=== PATIENT | male | born 1965 | race Caucasian/White ===

== ENCOUNTER 2021-07-31 06:30 | Inpatient (IN) ==
--- NOTE | 2021-07-31 06:45 | DR.SOBA ---
HPI <JENNIFER NOLBERTO - Last Filed: 08/01/21 03:54> Time Seen Time Seen by Provider: 07/31/21 06:42 HPI Comment HPI Comment: PATIENT IS 55YR OLD MALE IN ER WITH INCREASING SOB AND LOW OXYGEN SATURATION. TESTED POSITIVE FOR COVID 19 VIRUS 2 WEEKS AGO. DENIES FEVER. CHEST WALL DISCOMFORT FROM COUGHING. Complaints Chief Complaint Doctors Comments: INCREASING SOB, COUGH, CONGESTION AND LOW O2 SATURATION. COVID VIRUS TESTED POSITIVE 2 WEEKS AGO. COVID-19 Coronavirus risk:travel/contact w/high risk person: Yes Has patient experienced Coronavirus symptoms: Yes Coronavirus symptoms experienced: Coughing Source History Provided: Patient and Family Member Mode of Arrival Mode of Arrival: Ambulatory PMH <SILVADUSTIN NOLBERTO - Last Filed: 08/01/21 03:54> PMH Past Medical History: Diabetes, Dyslipidemia and Hypertension Past Surgical History: No Surgical History: Ortho Surgery Family History Family Medical History: Diabetes Mellitus, Cancer, [place], Coronary Artery Disease and Hypertension Social History Do you use any recreational Drugs:: No ROS <SILVADUSTIN NOLBERTO - Last Filed: 08/01/21 03:54> Review of Systems Constitutional: See HPI; negative Fever, Weakness and Fatigue Eyes: No Symptoms Reported and See HPI ENTM: See HPI; negative Nose Discharge and Nose Congestion Respiratoy: See HPI, Productive Cough and Short of Breath; negative Wheezing Cardiovascular: See HPI and Chest Pain (CHEST WALL PAIN.) Gastrointestinal/Abdominal: No Symptoms Reported and See HPI; negative Abdominal Pain, Diarrhea, Nausea and Vomiting Genitourinary: No Symptoms Reported and See HPI; negative Dysuria, Frequency and Hematuria Neurological: See HPI, Headache and Weakness; negative Dizziness Musculoskeletal: No Symptoms Reported and See HPI; negative Back Pain and Muscle Pain Integumentary: No Symptoms Reported and See HPI; negative Rash and Juandice Hematologic/Lymphatic: No Symptoms Reported and See HPI; negative Easy Bruising Endocrine: No Symptoms Reported and See HPI; negative Increased Thirst and Increased Urine Psychiatric: No Symptoms Reported and See HPI All Other Systems: Reviewed and Negative PE <JENNIFER NOLBERTO - Last Filed: 08/01/21 03:54> Vital Signs Vitals: Temperature 98.7 F Pulse Rate [Left Brachial] 89 Pulse Rate 92 Respiratory Rate 20 Blood Pressure [Left Arm] 150/71 Blood Pressure 138/72 O2 Sat by Pulse Oximetry 92 General Limitations: No Limitations General Appearance: Alert and In Distress Head Head Exam: Normal Inspection, Atraumatic and Normocephalic Eyes Eye exam: Normal Appearance, PERRL and EOMI; negative Scleral Icterus and Conjunctival Injection ENT ENT Exam: Normal Exam, Normal Oropharynx, Normal External Ear Exam and Mucous Membranes Dry Neck Neck Exam: Normal Inspection, Trachea Midline and Tenderness Chest Chest Inspection: Normal Inspection and Symmetric Chest Wall Rise; negative Tenderness Respiratory Respiratory Exam: Accessory Muscle Use and Respiratory Distress; negative Chest Wall Tenderness Respiratory Exam: Bilateral: Rhonchi and Lower: Rhonchi Cardiovascular Cardiovascular Exam: Regular Rate and Normal Rhythm; negative Normal Heart Sounds, Systolic Murmur and Diastolic Murmur Abdominal Exam Abdominal Exam: Normal Inspection, Normal Bowel Sounds and Soft; negative Tenderness Extremities Extremities Exam: Normal Inspection and Normal Capillary Refill; negative Tenderness Back Back Exam: Normal Inspection; negative (R) CVA Tenderness, (L) CVA Tenderness and Paraspinal Tenderness Neurologic Neurological Exam: Alert, Oriented X3 and CN II-XII Intact; negative Motor Sensory Deficit Psychiatric Psychiatric Exam: Normal Affect and Normal Mood Skin Skin Exam: Warm, Dry, Intact and Normal Color <Noman Ceballos - Last Filed: 07/31/21 15:08> Vital Signs Vitals: Temperature 98.7 F Pulse Rate [Left Brachial] 89 Pulse Rate 92 Respiratory Rate 20 Blood Pressure [Left Arm] 150/71 Blood Pressure 138/72 O2 Sat by Pulse Oximetry 92 MDM <JENNIFER MCKEON - Last Filed: 08/01/21 03:54> Additional Information Obtained Additional Information Obtained From: Family Differential Diagnosis Differential Diagnosis: Bronchitis, Pneumonia, Pulmonary embolism, Respiratory Failure, Respiratory Insufficiency, Sinusitis and URI Differential Diagnosis Comment:: MVA. COURSE <JENNIFER MCKEON - Last Filed: 08/01/21 03:54> Treatment Treatment: SEE ORDERS. O2 3L/M NC IN ER. O2 SAT IMPROVED. Education/Counseling Education/Counseling: Patient Educated On: Diagnosis <Noman Ceballos - Last Filed: 07/31/21 15:08> Treatment Treatment: 0926 - pt signed over to me, Dr Ceballos, for complition of his ER visit. CTA pending, but pt with changes c/w Covid pneumonia and hypoxia. Discussed with his attending, Dr Diaz, will admit. CTA was negative. ROR <JENNIFER MCKEON - Last Filed: 08/01/21 03:54> Labs Reviewed Laboratory Results Reviewed?: Yes Result Diagrams: 07/31/21 15:53 07/31/21 15:53 Laboratory: WBC 7.3 X10^3/uL (3.6-10.0) 07/31/21 06:55 RBC 4.88 X10^6/uL (4.7-6.0) 07/31/21 06:55 Hgb 14.7 g/dL (13.5-18.0) 07/31/21 06:55 Hct 43.4 % (42.0-54.0) 07/31/21 06:55 MCV 89.0 fL (80.0-100.0) 07/31/21 06:55 MCH 30.2 pg (27.0-34.0) 07/31/21 06:55 MCHC 33.9 g/dL (33.0-35.0) 07/31/21 06:55 RDW 13.4 % (11.6-16.5) 07/31/21 06:55 Plt Count 261 X10^3/uL (150.0-450.0) 07/31/21 06:55 MPV 7.6 fL (7.4-11.0) 07/31/21 06:55 Neut % (Auto) 82.6 % (42.0-75.0) H 07/31/21 06:55 Lymph % (Auto) 8.8 % (21.0-51.0) L 07/31/21 06:55 [place] % (Auto) 7.6 % (0.0-13.0) 07/31/21 06:55 Eos % (Auto) 0.5 % (0.9-2.9) L 07/31/21 06:55 Baso % (Auto) 0.5 % (0.2-1.0) 07/31/21 06:55 Neut # (Auto) 6.0 x10^3/uL (2.2-4.8) H 07/31/21 06:55 Lymph # (Auto) 0.6 X10^3/uL (1.3-2.9) L 07/31/21 06:55 [place] # (Auto) 0.6 x10^3/uL (0.3-0.8) 07/31/21 06:55 Eos # (Auto) 0.0 x10^3/uL (0.0-0.2) 07/31/21 06:55 Baso # (Auto) 0.0 X10^3/uL (0.0-0.1) 07/31/21 06:55 Absolute Nucleated RBC 0.1 /100WBC 07/31/21 06:55 D-Dimer 1.27 ug/ml (0.0-0.57) H* 07/31/21 06:55 Sample Site Lr 07/31/21 06:40 ABG pH 7.460 (7.35-7.45) H 07/31/21 06:40 ABG pCO2 39.0 mmHg (35.0-45.0) 07/31/21 06:40 ABG pO2 51.0 mmHg (80.0-100.0) L 07/31/21 06:40 ABG HCO3 27.7 mmol/L (22-26) H 07/31/21 06:40 ABG O2 Saturation 88.0 % (90-100) L 07/31/21 06:40 ABG Base Excess 3.7 mmol/L (-2.0-2.0) H 07/31/21 06:40 Nolberto Test Pos 07/31/21 06:40 A-a Gradient 50.0 mmHg 07/31/21 06:40 FiO2 21.0 07/31/21 06:40 Blood Gas Comments Pt amy well cdn 07/31/21 06:40 Sodium 133 mmol/L (136-145) L 07/31/21 06:55 Corrected Sodium 139 mmol/L (136-145) 07/31/21 06:55 Potassium 5.5 mmol/L (3.5-5.1) H 07/31/21 06:55 Chloride 97 mmol/L (98-107) L 07/31/21 06:55 Carbon Dioxide 26.1 mmol/L (21-32) 07/31/21 06:55 BUN 18 mg/dL (7-18) 07/31/21 06:55 Creatinine 1.19 mg/dL (0.70-1.30) 07/31/21 06:55 Est GFR (MDRD) Af Amer > 60 (>60) 07/31/21 06:55 Est GFR (MDRD) Non-Af > 60 (>60) 07/31/21 06:55 Glucose 331 mg/dL (65-99) H 07/31/21 06:55 POC Glucose (mg/dL) 373 mg/dL (65-99) H 07/31/21 12:06 Calcium 8.9 mg/dL (8.5-10.1) 07/31/21 06:55 Corrected Calcium 10.3 mg/dL (8.5-10.1) H 07/31/21 06:55 Total Bilirubin 0.70 mg/dL (0.2-1.0) 07/31/21 06:55 AST 65 Units/L (15-37) H 07/31/21 06:55 ALT 84 Units/L (12-78) H 07/31/21 06:55 Alkaline Phosphatase 187 Units/L (46-116) H 07/31/21 06:55 Total Protein 7.1 g/dL (6.4-8.2) 07/31/21 06:55 Albumin 2.3 g/dL (3.4-5.0) L 07/31/21 06:55 Globulin 4.8 g/dL (2.5-4.5) H 07/31/21 06:55 Albumin/Globulin Ratio 0.5 Ratio (1.1-2.1) L 07/31/21 06:55 SARS-CoV-2 (PCR) Positive (NEGATIVE) A 07/31/21 06:53 Influenza Type A (PCR) Negative (NEGATIVE) 07/31/21 06:53 Influenza Type B (PCR) Negative (NEGATIVE) 07/31/21 06:53 RSV (PCR) Negative (NEGATIVE) 07/31/21 06:53 XRAY XRAY Interpreted by: Radiologist (REPORT NOTED AND DISCUSSED WITH PATIENT.) and Self <Noman Ceballos - Last Filed: 07/31/21 15:08> Labs Reviewed Laboratory: WBC 7.3 X10^3/uL (3.6-10.0) 07/31/21 06:55 RBC 4.88 X10^6/uL (4.7-6.0) 07/31/21 06:55 Hgb 14.7 g/dL (13.5-18.0) 07/31/21 06:55 Hct 43.4 % (42.0-54.0) 07/31/21 06:55 MCV 89.0 fL (80.0-100.0) 07/31/21 06:55 MCH 30.2 pg (27.0-34.0) 07/31/21 06:55 MCHC 33.9 g/dL (33.0-35.0) 07/31/21 06:55 RDW 13.4 % (11.6-16.5) 07/31/21 06:55 Plt Count 261 X10^3/uL (150.0-450.0) 07/31/21 06:55 MPV 7.6 fL (7.4-11.0) 07/31/21 06:55 Neut % (Auto) 82.6 % (42.0-75.0) H 07/31/21 06:55 Lymph % (Auto) 8.8 % (21.0-51.0) L 07/31/21 06:55 [place] % (Auto) 7.6 % (0.0-13.0) 07/31/21 06:55 Eos % (Auto) 0.5 % (0.9-2.9) L 07/31/21 06:55 Baso % (Auto) 0.5 % (0.2-1.0) 07/31/21 06:55 Neut # (Auto) 6.0 x10^3/uL (2.2-4.8) H 07/31/21 06:55 Lymph # (Auto) 0.6 X10^3/uL (1.3-2.9) L 07/31/21 06:55 [place] # (Auto) 0.6 x10^3/uL (0.3-0.8) 07/31/21 06:55 Eos # (Auto) 0.0 x10^3/uL (0.0-0.2) 07/31/21 06:55 Baso # (Auto) 0.0 X10^3/uL (0.0-0.1) 07/31/21 06:55 Absolute Nucleated RBC 0.1 /100WBC 07/31/21 06:55 D-Dimer 1.27 ug/ml (0.0-0.57) H* 07/31/21 06:55 Sample Site Lr 07/31/21 06:40 ABG pH 7.460 (7.35-7.45) H 07/31/21 06:40 ABG pCO2 39.0 mmHg (35.0-45.0) 07/31/21 06:40 ABG pO2 51.0 mmHg (80.0-100.0) L 07/31/21 06:40 ABG HCO3 27.7 mmol/L (22-26) H 07/31/21 06:40 ABG O2 Saturation 88.0 % (90-100) L 07/31/21 06:40 ABG Base Excess 3.7 mmol/L (-2.0-2.0) H 07/31/21 06:40 Nolberto Test Pos 07/31/21 06:40 A-a Gradient 50.0 mmHg 07/31/21 06:40 FiO2 21.0 07/31/21 06:40 Blood Gas Comments Pt amy well cdn 07/31/21 06:40 Sodium 133 mmol/L (136-145) L 07/31/21 06:55 Corrected Sodium 139 mmol/L (136-145) 07/31/21 06:55 Potassium 5.5 mmol/L (3.5-5.1) H 07/31/21 06:55 Chloride 97 mmol/L (98-107) L 07/31/21 06:55 Carbon Dioxide 26.1 mmol/L (21-32) 07/31/21 06:55 BUN 18 mg/dL (7-18) 07/31/21 06:55 Creatinine 1.19 mg/dL (0.70-1.30) 07/31/21 06:55 Est GFR (MDRD) Af Amer > 60 (>60) 07/31/21 06:55 Est GFR (MDRD) Non-Af > 60 (>60) 07/31/21 06:55 Glucose 331 mg/dL (65-99) H 07/31/21 06:55 POC Glucose (mg/dL) 373 mg/dL (65-99) H 07/31/21 12:06 Calcium 8.9 mg/dL (8.5-10.1) 07/31/21 06:55 Corrected Calcium 10.3 mg/dL (8.5-10.1) H 07/31/21 06:55 Total Bilirubin 0.70 mg/dL (0.2-1.0) 07/31/21 06:55 AST 65 Units/L (15-37) H 07/31/21 06:55 ALT 84 Units/L (12-78) H 07/31/21 06:55 Alkaline Phosphatase 187 Units/L (46-116) H 07/31/21 06:55 Total Protein 7.1 g/dL (6.4-8.2) 07/31/21 06:55 Albumin 2.3 g/dL (3.4-5.0) L 07/31/21 06:55 Globulin 4.8 g/dL (2.5-4.5) H 07/31/21 06:55 Albumin/Globulin Ratio 0.5 Ratio (1.1-2.1) L 07/31/21 06:55 SARS-CoV-2 (PCR) Positive (NEGATIVE) A 07/31/21 06:53 Influenza Type A (PCR) Negative (NEGATIVE) 07/31/21 06:53 Influenza Type B (PCR) Negative (NEGATIVE) 07/31/21 06:53 RSV (PCR) Negative (NEGATIVE) 07/31/21 06:53 Opioid <JENNIFER MCKEON - Last Filed: 08/01/21 03:54> Opioid Risk Tool Age (Ilya box if 16-45): No History of Preadolescent Sexual Abuse: No Total: 0 Total Score Risk Category: Low Risk Copyright: [facility] predicting aberrant behaviors <Noman Ceballos - Last Filed: 07/31/21 15:08> Opioid Risk Tool Total: 0 Total Score Risk Category: Low Risk <JENNIFER MCKEON - Last Filed: 08/01/21 03:54> Diagnosis Discharge Problem: COVID-19 virus infection, Hypoxia Pneumonia Qualifiers: Pneumonia type: due to unspecified organism Laterality: bilateral Lung location: lower lobe of lung Qualified Code(s): J18.9 - Pneumonia, unspecified organism Instructions Forms: Precautions for COVID19 [facility] Patient Portal Social Distancing
[2021-07-31 06:50] LABS: ABG ALLEN TEST POS; ABG BASE EXCESS 3.7 mmol/L (-2.0-2.0); ABG HCO3 27.7 mmol/L (22-26)
--- NOTE | 2021-07-31 06:58 | RAD ---
HISTORYShortness of breathSTUDYChest AP [id number] t size is normal. Silvia are normal. Diffuse bilateral interstitial infiltrates with some bilateral upper lobe peripheral ground-glass infiltrates are identified not significantly different from the prior examination considering a difference in film technique. No pleural effusion or pneumothorax is identified. Bony thorax is unremarkable.IMPRESSIONBilateral interstitial and some peripheral ground-glass infiltrates unchanged when compared to the prior examination considering a difference in film technique.Electronically signed by: PADMINI MERCER (Jul 31, 2021 06:56:33)
[2021-07-31 07:07] LABS: BASOPHILS % (AUTO) 0.5 % (0.2-1.0); EOSINOPHILS % (AUTO) 0.5 % (0.9-2.9); HEMATOCRIT 43.4 % (42.0-54.0); HEMOGLOBIN 14.7 g/dL (13.5-18.0); LYMPHOCYTES # (AUTO) 0.6 X10^3/uL (1.3-2.9); LYMPHOCYTES % (AUTO) 8.8 % (21.0-51.0); MEAN CORPUSCULAR HEMOGLOBIN 30.2 pg (27.0-34.0); MEAN CORPUSCULAR HGB CONC 33.9 g/dL (33.0-35.0); MEAN PLATELET VOLUME 7.6 fL (7.4-11.0); MONOCYTES # (AUTO) 0.6 x10^3/uL (0.3-0.8); MONOCYTES % (AUTO) 7.6 % (0.0-13.0); NEUTROPHILS % (AUTO) 82.6 % (42.0-75.0); RED BLOOD COUNT 4.88 X10^6/uL (4.7-6.0); RED CELL DISTRIBUTION WIDTH 13.4 % (11.6-16.5); WHITE BLOOD COUNT 7.3 X10^3/uL (3.6-10.0)
[2021-07-31 07:12] LABS: BLOOD UREA NITROGEN 18 mg/dL (7-18); CALCIUM 8.9 mg/dL (8.5-10.1); CARBON DIOXIDE 26.1 mmol/L (21-32); CHLORIDE 97 mmol/L (98-107); COR NA(FOR HYPERGLY) 139 mmol/L (136-145); CREATININE 1.19 mg/dL (0.70-1.30); SODIUM 133 mmol/L (136-145); eGFR NON BLACK RACES > 60 (>60)
[2021-07-31 07:48] LABS: ALANINE AMINOTRANSFERASE 84 Units/L (12-78); ALBUMIN 2.3 g/dL (3.4-5.0); ALKALINE PHOSPHATASE 187 Units/L (46-116); ASPARTATE AMINO TRANSFERASE 65 Units/L (15-37); COR CA(FOR HYPOALB) 10.3 mg/dL (8.5-10.1); TOTAL PROTEIN 7.1 g/dL (6.4-8.2)
[2021-07-31] MEDS ORDERED: NS 100 ML IV 100 ML ONE (07:48)
--- NOTE | 2021-07-31 09:21 | CT ---
HISTORYCOVID-19, cough, shortness of breathSTUDYCTA chest with contrast for pulmonary embolusTechnique: Axial post-contrast images with coronal, sagittal, and 3 dimensional maximum intensity projection images obtained in evaluated. Dose reduction procedures were used with mA/kv adjusted for body size.COMPARISONNoneFINDINGSThere is no evidence for acute pulmonary thromboembolic disease. Examination of the mediastinum demonstrated no evidence for mediastinal masses, enlarged mediastinal or enlarged hilar adenopathy or significant aortic abnormality. No pleural effusions are identified. No chest wall or axillary abnormality is identified. Those portions of the upper abdominal organs visualized were within normal limits to the limitations of early arterial injection timing. Examination of the lung mendoza demonstrated diffuse bilateral predominantly peripheral and juxtafissural but also some central ground-glass infiltrates involving to some extent all lung mendoza some demonstrating subpleural sparing. Findings are most consistent with multifocal pneumonia which could be bacterial, viral, or atypical viral in origin. COVID-19 can have this appearance. There are no alveolar infiltrates, areas of consolidation, findings of peribronchial thickening or bronchiectasis.IMPRESSIONNo evidence for acute pulmonary thromboembolic diseaseDiffuse bilateral predominantly peripheral and juxtafissural but also some central ground-glass infiltrates consistent with multifocal pneumonia which could be bacterial, viral, or atypical viral in origin. COVID can have this appearance.Electronically signed by: PADMINI MERCER (Jul 31, 2021 08:28:14)
[2021-07-31] MEDS ORDERED: ZITHROMAX INJ 500 MG VIAL IV ONE (11:54)
[2021-07-31] MEDS ORDERED: NS 250 ML IV 250 ML IV ONE ×2 (11:54→11:59)
[2021-07-31] MEDS: ZITHROMAX INJ 500 MG VIAL 500 MG in D5W 250 ML IV 250 ML IV SCH (12:00)
[2021-07-31] MEDS: NovoLIN R (or HumuLIN R) SUBCUT PRN (12:30)
[2021-07-31] MEDS ORDERED: REMDESIVIR 200 MG in NS 250 ML IV 250 ML IV ONE (15:06)
[2021-07-31] MEDS ORDERED: MOBIC TAB 15 MG PO PRN (15:06)
[2021-07-31] MEDS ORDERED: TYLENOL 325 MG TAB PO PRN (15:41)
[2021-07-31] MEDS: ASCORBIC ACID INJ MULTI-DOSE VIAL 1,500 MG in NS 100 ML IV 100 ML IV SCH ×2 (16:38→21:15)
[2021-07-31] MEDS: SOLU-Medrol 40 MG VIAL IVP SCH ×2 (16:38→21:19)
[2021-07-31 16:39] LABS: BASOPHILS % (AUTO) 0.4 % (0.2-1.0); EOSINOPHILS % (AUTO) 0.7 % (0.9-2.9); HEMATOCRIT 41.3 % (42.0-54.0); HEMOGLOBIN 14.4 g/dL (13.5-18.0); LYMPHOCYTES # (AUTO) 0.7 X10^3/uL (1.3-2.9); LYMPHOCYTES % (AUTO) 10.2 % (21.0-51.0); MEAN CORPUSCULAR HEMOGLOBIN 30.8 pg (27.0-34.0); MEAN CORPUSCULAR HGB CONC 34.8 g/dL (33.0-35.0); MEAN CORPUSCULAR VOLUME 88.7 fL (80.0-100.0); MEAN PLATELET VOLUME 7.9 fL (7.4-11.0); MONOCYTES # (AUTO) 0.6 x10^3/uL (0.3-0.8); MONOCYTES % (AUTO) 8.9 % (0.0-13.0); NEUTROPHILS # (AUTO) 5.2 x10^3/uL (2.2-4.8); NEUTROPHILS % (AUTO) 79.8 % (42.0-75.0); RED BLOOD COUNT 4.66 X10^6/uL (4.7-6.0); RED CELL DISTRIBUTION WIDTH 13.2 % (11.6-16.5); WHITE BLOOD COUNT 6.5 X10^3/uL (3.6-10.0)
[2021-07-31 16:45] LABS: ALANINE AMINOTRANSFERASE 80 Units/L (12-78); ALBUMIN 2.2 g/dL (3.4-5.0); ALKALINE PHOSPHATASE 196 Units/L (46-116); ASPARTATE AMINO TRANSFERASE 60 Units/L (15-37); BLOOD UREA NITROGEN 18 mg/dL (7-18); CALCIUM 8.6 mg/dL (8.5-10.1); CARBON DIOXIDE 26.2 mmol/L (21-32); CHLORIDE 97 mmol/L (98-107); COR NA(FOR HYPERGLY) 139 mmol/L (136-145); CREATININE 1.16 mg/dL (0.70-1.30); SODIUM 134 mmol/L (136-145); eGFR NON BLACK RACES > 60 (>60)
[2021-07-31] MEDS: HumaLOG SC SCH ×2 (17:33)
[2021-07-31] MEDS: NS 1,000 ML IV 1,000 ML IV SCH (17:34)
[2021-07-31] MEDS ORDERED: SNACK - Diabetic Appropriate PO SCH (20:00)
[2021-07-31] MEDS: SNACK - Diabetic Appropriate PO SCH (20:28)
[2021-07-31] MEDS: BROVANA IN SCH (20:40)
[2021-07-31] MEDS: PULMICORT NEB TX 0.5 MG NEB SCH (20:40)
[2021-07-31] MEDS ORDERED: ACCUNEB 1.25 MG NEBULE NEB SCH (21:00)
[2021-07-31] MEDS: ZINC SULFATE PO SCH (21:17)
[2021-07-31] MEDS: VIBRAMYCIN PO SCH (21:17)
[2021-07-31] MEDS: PEPCID TAB 40 MG PO SCH (21:18)
[2021-07-31] MEDS: ZOCOR TAB 10 MG PO SCH (21:18)
[2021-07-31] MEDS: LOVENOX INJ 30 MG SYR SC SCH (21:19)
[2021-07-31] MEDS: LANTUS SC SCH (21:38)
[2021-08-01] MEDS: ASCORBIC ACID INJ MULTI-DOSE VIAL 1,500 MG in NS 100 ML IV 100 ML IV SCH ×2 (02:45→09:01)
[2021-08-01 06:17] LABS: BASOPHILS % (AUTO) 0.1 % (0.2-1.0); HEMOGLOBIN 13.3 g/dL (13.5-18.0); LYMPHOCYTES # (AUTO) 0.4 X10^3/uL (1.3-2.9); MEAN CORPUSCULAR HEMOGLOBIN 31.1 pg (27.0-34.0); MEAN CORPUSCULAR HGB CONC 35.1 g/dL (33.0-35.0); MEAN CORPUSCULAR VOLUME 88.7 fL (80.0-100.0); MONOCYTES # (AUTO) 0.1 x10^3/uL (0.3-0.8); MONOCYTES % (AUTO) 3.2 % (0.0-13.0); NEUTROPHILS # (AUTO) 3.7 x10^3/uL (2.2-4.8); NEUTROPHILS % (AUTO) 86.7 % (42.0-75.0); RED BLOOD COUNT 4.28 X10^6/uL (4.7-6.0); RED CELL DISTRIBUTION WIDTH 13.1 % (11.6-16.5); WHITE BLOOD COUNT 4.2 X10^3/uL (3.6-10.0)
[2021-08-01] MEDS: SOLU-Medrol 40 MG VIAL IVP SCH ×3 (06:22→21:55)
[2021-08-01] MEDS: HumaLOG SC SCH ×3 (06:36→17:30)
[2021-08-01 06:55] LABS: ALANINE AMINOTRANSFERASE 93 Units/L (12-78); ALKALINE PHOSPHATASE 186 Units/L (46-116); ASPARTATE AMINO TRANSFERASE 68 Units/L (15-37); BLOOD UREA NITROGEN 22 mg/dL (7-18); CALCIUM 8.4 mg/dL (8.5-10.1); CARBON DIOXIDE 25.5 mmol/L (21-32); CHLORIDE 99 mmol/L (98-107); COR NA(FOR HYPERGLY) 141 mmol/L (136-145); CREATININE 0.95 mg/dL (0.70-1.30); SODIUM 135 mmol/L (136-145); TOTAL PROTEIN 6.4 g/dL (6.4-8.2); eGFR NON BLACK RACES > 60 (>60)
[2021-08-01] MEDS: PULMICORT NEB TX 0.5 MG NEB SCH ×2 (08:59→21:51)
[2021-08-01] MEDS: BROVANA IN SCH ×2 (08:59→21:52)
[2021-08-01] MEDS ORDERED: VITAMIN D (1.25MG) PO SCH (09:00)
[2021-08-01] MEDS: LOVENOX INJ 30 MG SYR SC SCH ×2 (09:01→21:52)
[2021-08-01] MEDS: LANTUS SC SCH ×2 (09:01→22:05)
[2021-08-01] MEDS: PROTONIX TAB 40 MG PO SCH (09:03)
[2021-08-01] MEDS: TRICOR TAB 160 MG PO SCH (09:03)
[2021-08-01] MEDS: PEPCID TAB 40 MG PO SCH ×2 (09:03→21:53)
[2021-08-01] MEDS: VIBRAMYCIN PO SCH ×2 (09:04→21:53)
[2021-08-01] MEDS: ZITHROMAX INJ 500 MG VIAL 500 MG in D5W 250 ML IV 250 ML IV SCH (09:05)
[2021-08-01] MEDS: ZETIA TAB 10 MG PO SCH (09:05)
[2021-08-01] MEDS: ZINC SULFATE PO SCH ×2 (09:05→21:53)
[2021-08-01] MEDS: ALTACE CAP 10 MG PO SCH (09:19)
[2021-08-01] MEDS: NEBIVOLOL 10 MG PO SCH (09:19)
[2021-08-01] MEDS ORDERED: PHARMACY CONSULT - IVERMECTIN XX SCH (10:00)
[2021-08-01] MEDS: IVERMECTIN PO SCH (11:18)
[2021-08-01] MEDS: REMDESIVIR 100 MG in NS 250 ML IV 250 ML IV SCH (11:18)
--- NOTE | 2021-08-01 11:27 | RAD ---
HISTORYSOB, COVID PNEUMONIA Relevant Clinical InformationSTUDYCHEST, 1 VIEWCOMPARISONOne-view chest July 31, 2021. CystsFINDINGSThe trachea is midline. The cardiac silhouette is unremarkable. The infiltrates in the right upper lobe left lateral mid and lower lung field show mild improvement compared to yesterday's study. There are residual infiltrates consistent with atypical bronchopneumonia. The bony thorax is unremarkable.IMPRESSIONMild improvement in the bilateral peripheral infiltrates compared to yesterday's study.Electronically signed by: CHARLIE WASHINGTON (Aug 01, 2021 11:25:45)
--- NOTE | 2021-08-01 12:19 | DR.H&P ---
H&P History & Physical for Day of: H&P Date: 07/31/21 Chief Complaint Chief Complaint: SOB, Cough, Congestion and Low O2. Allergies Allergies Allergy/AdvReac Type Severity Reaction Status Date / Time Sulfa (Sulfonamide Allergy Verified 07/29/21 20:30 Antibiotics) [SULFA] History of Present Illness History of Present Illness: This is a pleasant 55year-old white male who tested positive for Covid-19 a few weeks ago who now has increasing SOB, cough and congestion. Dyspnea has worsened over the last few days despite different treatments with antibiotics and steroids as an outpatient. He is noted to have hypoxia with sats in the low 90's and upper 80's on 2l NC. Here in the ED his CXR shows multifocal pneumonia. He looks uncomfortable at this time. He will be admitted and started on the Covid Protocol. Past Medical History Past Medical History: Diabetes, Dyslipidemia and Hypertension Past Surgical History Surgical History: Ortho Surgery Family History Family Medical History: Diabetes Mellitus, Cancer, Coronary Artery Disease and Hypertension Social History Does patient currently use any type of tobacco product: No Have you used tobacco products in the last 12 months: No Type of Tobacco Use: None Does any household member use tobacco: No Alcohol Use: None Drug Use: None Medications Home Medications: Sulfa (Sulfonamide Antibiotics) [SULFA] Allergy (Verified 07/29/21 20:30) CONTINUE taking the following medications insulin glargine [Lantus U-100 Insulin] 50 unit SUBCUT BID 07/31/21 [History] insulin lispro [Humalog U-100 Insulin] 20 unit SUBCUT AC 07/31/21 [History] Labs Result Diagrams: 08/01/21 04:50 08/01/21 04:50 Labs: Laboratory WBC 4.2 X10^3/uL (3.6-10.0) 08/01/21 04:50 RBC 4.28 X10^6/uL (4.7-6.0) L 08/01/21 04:50 Hgb 13.3 g/dL (13.5-18.0) L 08/01/21 04:50 Hct 38.0 % (42.0-54.0) L 08/01/21 04:50 MCV 88.7 fL (80.0-100.0) 08/01/21 04:50 MCH 31.1 pg (27.0-34.0) 08/01/21 04:50 MCHC 35.1 g/dL (33.0-35.0) H 08/01/21 04:50 RDW 13.1 % (11.6-16.5) 08/01/21 04:50 Plt Count 261 X10^3/uL (150.0-450.0) 08/01/21 04:50 MPV 8.0 fL (7.4-11.0) 08/01/21 04:50 Neut % (Auto) 86.7 % (42.0-75.0) H 08/01/21 04:50 Lymph % (Auto) 10.0 % (21.0-51.0) L 08/01/21 04:50 [place] % (Auto) 3.2 % (0.0-13.0) 08/01/21 04:50 Eos % (Auto) 0.0 % (0.9-2.9) L 08/01/21 04:50 Baso % (Auto) 0.1 % (0.2-1.0) L 08/01/21 04:50 Neut # (Auto) 3.7 x10^3/uL (2.2-4.8) 08/01/21 04:50 Lymph # (Auto) 0.4 X10^3/uL (1.3-2.9) L 08/01/21 04:50 [place] # (Auto) 0.1 x10^3/uL (0.3-0.8) L 08/01/21 04:50 Eos # (Auto) 0.0 x10^3/uL (0.0-0.2) 08/01/21 04:50 Baso # (Auto) 0.0 X10^3/uL (0.0-0.1) 08/01/21 04:50 Absolute Nucleated RBC 0.1 /100WBC 08/01/21 04:50 D-Dimer 1.27 ug/ml (0.0-0.57) H* 07/31/21 06:55 Sample Site Lr 07/31/21 06:40 ABG pH 7.460 (7.35-7.45) H 07/31/21 06:40 ABG pCO2 39.0 mmHg (35.0-45.0) 07/31/21 06:40 ABG pO2 51.0 mmHg (80.0-100.0) L 07/31/21 06:40 ABG HCO3 27.7 mmol/L (22-26) H 07/31/21 06:40 ABG O2 Saturation 88.0 % (90-100) L 07/31/21 06:40 ABG Base Excess 3.7 mmol/L (-2.0-2.0) H 07/31/21 06:40 Nolberto Test Pos 07/31/21 06:40 A-a Gradient 50.0 mmHg 07/31/21 06:40 FiO2 21.0 07/31/21 06:40 Blood Gas Comments Pt amy well cdn 07/31/21 06:40 Sodium 135 mmol/L (136-145) L 08/01/21 04:50 Corrected Sodium 141 mmol/L (136-145) 08/01/21 04:50 Potassium 4.8 mmol/L (3.5-5.1) 08/01/21 04:50 Chloride 99 mmol/L (98-107) 08/01/21 04:50 Carbon Dioxide 25.5 mmol/L (21-32) 08/01/21 04:50 BUN 22 mg/dL (7-18) H 08/01/21 04:50 Creatinine 0.95 mg/dL (0.70-1.30) 08/01/21 04:50 Est GFR (MDRD) Af Amer > 60 (>60) 08/01/21 04:50 Est GFR (MDRD) Non-Af > 60 (>60) 08/01/21 04:50 Glucose 335 mg/dL (65-99) H 08/01/21 04:50 POC Glucose (mg/dL) 460 mg/dL (65-99) H 08/01/21 11:54 Calcium 8.4 mg/dL (8.5-10.1) L 08/01/21 04:50 Corrected Calcium 10.0 mg/dL (8.5-10.1) 08/01/21 04:50 Total Bilirubin 0.50 mg/dL (0.2-1.0) 08/01/21 04:50 AST 68 Units/L (15-37) H 08/01/21 04:50 ALT 93 Units/L (12-78) H 08/01/21 04:50 Alkaline Phosphatase 186 Units/L (46-116) H 08/01/21 04:50 Total Protein 6.4 g/dL (6.4-8.2) 08/01/21 04:50 Albumin 2.0 g/dL (3.4-5.0) L 08/01/21 04:50 Globulin 4.4 g/dL (2.5-4.5) 08/01/21 04:50 Albumin/Globulin Ratio 0.5 Ratio (1.1-2.1) L 08/01/21 04:50 SARS-CoV-2 (PCR) Positive (NEGATIVE) A 07/31/21 06:53 Influenza Type A (PCR) Negative (NEGATIVE) 07/31/21 06:53 Influenza Type B (PCR) Negative (NEGATIVE) 07/31/21 06:53 RSV (PCR) Negative (NEGATIVE) 07/31/21 06:53 Review of Systems Constitutional: Fever, Chills, Weakness and Malaise Eyes: No Symptoms Reported ENT: Nose Discharge and Nose Congestion Respiratory: Cough, Shortness of Breath, SOB with Excertion, Sputum and Wheezing Cardiovascular: No Symptoms Reported Gastrointestinal: No Symptoms Reported Genitourinary: No Symptoms Reported Musculoskeletal: No Symptoms Reported Skin: No Symptoms Reported Neurological: Weakness Physical Exam Vital Signs: Temperature 97.8 F Pulse Rate [Left Brachial] 74 Pulse Rate 74 Respiratory Rate 20 Blood Pressure [Left Arm] 132/61 Blood Pressure 138/72 O2 Sat by Pulse Oximetry 90 Oriented: Normal Eyes: Normal Ear: Normal Nose: Injected and Discharge Throat: Normal Respiratory: Diminished Throughout and Rhonchi Throughout Cardiovascular: Normal : Normal Auscultation: Bowel Sounds: Normal Palpation: Normal Tenderness: Normal Skin: Normal Musculoskeletal: Normal Psychiatric: Normal Mood Description: Calm Affect: Normal Speech Pattern: Clear and Appropriate Assessment/Plan (1) COVID-19: Status: Acute Plan: Covid Protocol. (2) Pneumonia: Qualifiers: Laterality: bilateral Lung location: lower lobe of lung Pneumonia type: due to unspecified organism Qualified Code(s): J18.9 - Pneumonia, unspecified organism Status: Acute Plan: IV Zithromax and Vibramycin (3) Hypoxia: Status: Acute Plan: Supplemental O2 (4) Uncontrolled diabetes mellitus with hyperglycemia: Qualifiers: Diabetes mellitus type: type 2 Qualified Code(s): E11.65 - Type 2 diabetes mellitus with hyperglycemia Status: Acute Plan: Sliding scale regular insulin. Lantus (5) Dyslipidemia: Status: Acute (6) HTN (hypertension): Status: Acute Plan: Monitor. Review H&P Reviewed: Yes Patient was examined?: Yes
--- NOTE | 2021-08-01 12:41 | PCM.PROG ---
Progress Note Progress Note for Day of Date of Exam: 08/01/21 Subjective Subjective: Patient reports he feels better this am. O2 sats are running in the low 90's now. Less dyspnea today. No acute problems overnight. Breathing easier overall. Past Medical Family Social History Past Med/Fam/Surg Hx: No changes since H&P Allergies: Allergies Sulfa (Sulfonamide Antibiotics) [SULFA] Allergy (Verified 07/29/21 20:30) Review of Systems ROS: Changes notes (describe) ROS changes noted: Less dyspnea. Vital Signs and I&O's Vital Signs: Temperature 97.8 F Pulse Rate [Left Brachial] 74 Pulse Rate 74 Respiratory Rate 20 Blood Pressure [Left Arm] 132/61 Blood Pressure 138/72 O2 Sat by Pulse Oximetry 90 Intake and Output: Intake & Output 07/30/21 07/31/21 08/01/21 08/02/21 11:59 11:59 11:59 11:59 Intake Total 1640 / 1640 Balance 1640 / 1640 Physical Exam Oriented: Normal Eyes: Normal Ear: Normal Nose: Injected and Discharge Throat: Normal Respiratory: Rhonchi Cardiovascular: Normal : Normal Auscultation: Bowel Sounds: Normal Tenderness: Normal Skin: Normal Musculoskeletal: Normal Psychiatric: Normal Mood Description: Calm Affect: Normal Speech Pattern: Clear and Appropriate Laboratory and Diagnostics Result Diagrams: 08/01/21 04:50 08/01/21 04:50 Labs: Laboratory WBC 4.2 X10^3/uL (3.6-10.0) 08/01/21 04:50 RBC 4.28 X10^6/uL (4.7-6.0) L 08/01/21 04:50 Hgb 13.3 g/dL (13.5-18.0) L 08/01/21 04:50 Hct 38.0 % (42.0-54.0) L 08/01/21 04:50 MCV 88.7 fL (80.0-100.0) 08/01/21 04:50 MCH 31.1 pg (27.0-34.0) 08/01/21 04:50 MCHC 35.1 g/dL (33.0-35.0) H 08/01/21 04:50 RDW 13.1 % (11.6-16.5) 08/01/21 04:50 Plt Count 261 X10^3/uL (150.0-450.0) 08/01/21 04:50 MPV 8.0 fL (7.4-11.0) 08/01/21 04:50 Neut % (Auto) 86.7 % (42.0-75.0) H 08/01/21 04:50 Lymph % (Auto) 10.0 % (21.0-51.0) L 08/01/21 04:50 [place] % (Auto) 3.2 % (0.0-13.0) 08/01/21 04:50 Eos % (Auto) 0.0 % (0.9-2.9) L 08/01/21 04:50 Baso % (Auto) 0.1 % (0.2-1.0) L 08/01/21 04:50 Neut # (Auto) 3.7 x10^3/uL (2.2-4.8) 08/01/21 04:50 Lymph # (Auto) 0.4 X10^3/uL (1.3-2.9) L 08/01/21 04:50 [place] # (Auto) 0.1 x10^3/uL (0.3-0.8) L 08/01/21 04:50 Eos # (Auto) 0.0 x10^3/uL (0.0-0.2) 08/01/21 04:50 Baso # (Auto) 0.0 X10^3/uL (0.0-0.1) 08/01/21 04:50 Absolute Nucleated RBC 0.1 /100WBC 08/01/21 04:50 D-Dimer 1.27 ug/ml (0.0-0.57) H* 07/31/21 06:55 Sample Site Lr 07/31/21 06:40 ABG pH 7.460 (7.35-7.45) H 07/31/21 06:40 ABG pCO2 39.0 mmHg (35.0-45.0) 07/31/21 06:40 ABG pO2 51.0 mmHg (80.0-100.0) L 07/31/21 06:40 ABG HCO3 27.7 mmol/L (22-26) H 07/31/21 06:40 ABG O2 Saturation 88.0 % (90-100) L 07/31/21 06:40 ABG Base Excess 3.7 mmol/L (-2.0-2.0) H 07/31/21 06:40 Nolberto Test Pos 07/31/21 06:40 A-a Gradient 50.0 mmHg 07/31/21 06:40 FiO2 21.0 07/31/21 06:40 Blood Gas Comments Pt amy well cdn 07/31/21 06:40 Sodium 135 mmol/L (136-145) L 08/01/21 04:50 Corrected Sodium 141 mmol/L (136-145) 08/01/21 04:50 Potassium 4.8 mmol/L (3.5-5.1) 08/01/21 04:50 Chloride 99 mmol/L (98-107) 08/01/21 04:50 Carbon Dioxide 25.5 mmol/L (21-32) 08/01/21 04:50 BUN 22 mg/dL (7-18) H 08/01/21 04:50 Creatinine 0.95 mg/dL (0.70-1.30) 08/01/21 04:50 Est GFR (MDRD) Af Amer > 60 (>60) 08/01/21 04:50 Est GFR (MDRD) Non-Af > 60 (>60) 08/01/21 04:50 Glucose 335 mg/dL (65-99) H 08/01/21 04:50 POC Glucose (mg/dL) 460 mg/dL (65-99) H 08/01/21 11:54 Calcium 8.4 mg/dL (8.5-10.1) L 08/01/21 04:50 Corrected Calcium 10.0 mg/dL (8.5-10.1) 08/01/21 04:50 Total Bilirubin 0.50 mg/dL (0.2-1.0) 08/01/21 04:50 AST 68 Units/L (15-37) H 08/01/21 04:50 ALT 93 Units/L (12-78) H 08/01/21 04:50 Alkaline Phosphatase 186 Units/L (46-116) H 08/01/21 04:50 Total Protein 6.4 g/dL (6.4-8.2) 08/01/21 04:50 Albumin 2.0 g/dL (3.4-5.0) L 08/01/21 04:50 Globulin 4.4 g/dL (2.5-4.5) 08/01/21 04:50 Albumin/Globulin Ratio 0.5 Ratio (1.1-2.1) L 08/01/21 04:50 SARS-CoV-2 (PCR) Positive (NEGATIVE) A 07/31/21 06:53 Influenza Type A (PCR) Negative (NEGATIVE) 07/31/21 06:53 Influenza Type B (PCR) Negative (NEGATIVE) 07/31/21 06:53 RSV (PCR) Negative (NEGATIVE) 07/31/21 06:53 Radiology Reviewed: Yes Plan (1) Elevated LFTs: Status: Acute Plan: D/C Simvastatin. Recheck LFT's in am. (2) COVID-19: Status: Acute Narrative Support Text: Improving. Plan: Covid Protocol. (3) Pneumonia: Status: Acute Qualifiers: Laterality: bilateral Lung location: lower lobe of lung Pneumonia type: due to unspecified organism Qualified Code(s): J18.9 - Pneumonia, unspecified organism Plan: Continue IV Zithromax and Vibramycin. Add Ivermectin. Check CXR this am. (4) Hypoxia: Status: Acute Plan: Supplemental O2 (5) Uncontrolled diabetes mellitus with hyperglycemia: Status: Acute Qualifiers: Diabetes mellitus type: type 2 Qualified Code(s): E11.65 - Type 2 d iabetes mellitus with hyperglycemia Plan: Sliding scale regular insulin. Increase Lantus form 50 Units bid to 65 Units bid. (6) Dyslipidemia: Status: Acute (7) HTN (hypertension): Status: Acute Narrative Support Text: BP stable. Plan: Continue Nebivolol.
[2021-08-01] MEDS: ASCORBIC ACID INJ MULTI-DOSE VIAL 1,500 MG in NS 50 ML IV 50 ML IV SCH ×2 (14:24→21:51)
[2021-08-01] MEDS: NS 1,000 ML IV 1,000 ML IV SCH (17:48)
[2021-08-01] MEDS ORDERED: SNACK - Diabetic Appropriate PO SCH (20:00)
[2021-08-01] MEDS: SNACK - Diabetic Appropriate PO SCH (20:56)
[2021-08-01] MEDS ORDERED: LANTUS SC SCH (21:00)
[2021-08-01] MEDS: ZOCOR TAB 10 MG PO SCH (21:53)
[2021-08-02] MEDS: ASCORBIC ACID INJ MULTI-DOSE VIAL 1,500 MG in NS 50 ML IV 50 ML IV SCH ×4 (03:32→20:51)
[2021-08-02 05:21] LABS: BASOPHILS % (AUTO) 0.1 % (0.2-1.0); HEMATOCRIT 38.3 % (42.0-54.0); HEMOGLOBIN 13.6 g/dL (13.5-18.0); LYMPHOCYTES # (AUTO) 0.6 X10^3/uL (1.3-2.9); LYMPHOCYTES % (AUTO) 5.2 % (21.0-51.0); MEAN CORPUSCULAR HEMOGLOBIN 30.9 pg (27.0-34.0); MEAN CORPUSCULAR HGB CONC 35.5 g/dL (33.0-35.0); MEAN PLATELET VOLUME 8.1 fL (7.4-11.0); MONOCYTES # (AUTO) 0.5 x10^3/uL (0.3-0.8); MONOCYTES % (AUTO) 4.2 % (0.0-13.0); NEUTROPHILS # (AUTO) 9.9 x10^3/uL (2.2-4.8); NEUTROPHILS % (AUTO) 90.5 % (42.0-75.0); RED CELL DISTRIBUTION WIDTH 13.3 % (11.6-16.5); WHITE BLOOD COUNT 10.9 X10^3/uL (3.6-10.0)
[2021-08-02 05:41] LABS: ALANINE AMINOTRANSFERASE 114 Units/L (12-78); ALBUMIN 2.1 g/dL (3.4-5.0); ALKALINE PHOSPHATASE 186 Units/L (46-116); ASPARTATE AMINO TRANSFERASE 69 Units/L (15-37); BLOOD UREA NITROGEN 29 mg/dL (7-18); CALCIUM 8.8 mg/dL (8.5-10.1); CARBON DIOXIDE 26.9 mmol/L (21-32); CHLORIDE 102 mmol/L (98-107); COR CA(FOR HYPOALB) 10.3 mg/dL (8.5-10.1); COR NA(FOR HYPERGLY) 144 mmol/L (136-145); CREATININE 1.11 mg/dL (0.70-1.30); SODIUM 139 mmol/L (136-145); TOTAL PROTEIN 6.6 g/dL (6.4-8.2); eGFR NON BLACK RACES > 60 (>60)
[2021-08-02] MEDS: SOLU-Medrol 40 MG VIAL IVP SCH ×2 (06:22→13:08)
[2021-08-02 06:26] LABS: PLATELET MORPHOLOGY COMMENT NORMAL (NORMAL)
--- NOTE | 2021-08-02 07:04 | RAD ---
HISTORYCOVID+, SOBSTUDYCHEST, 1 VIEWCOMPARISONOne day prior.TECHNIQUEAP view of the chestFINDINGSCardiac and mediastinal contours are within normal limits. No significant change in bilateral airspace and interstitial opacities. No definite pleural effusion or pneumothorax. Soft tissue attenuation limits evaluation.IMPRESSIONNo significant change.Electronically signed by: Misael Swanson (Aug 02, 2021 07:02:27)
[2021-08-02] MEDS: HumaLOG SC SCH ×3 (07:06→16:14)
[2021-08-02] MEDS: LANTUS SC SCH ×3 (07:12→20:50)
[2021-08-02] MEDS: PEPCID TAB 40 MG PO SCH ×2 (08:21→20:48)
[2021-08-02] MEDS: VITAMIN A PO SCH (08:22)
[2021-08-02] MEDS: VITAMIN D3 125 mcg (5,000 UNITS) PO SCH (08:22)
[2021-08-02] MEDS: ZETIA TAB 10 MG PO SCH (08:22)
[2021-08-02] MEDS: PROTONIX TAB 40 MG PO SCH (08:22)
[2021-08-02] MEDS: ZINC SULFATE PO SCH ×2 (08:22→20:48)
[2021-08-02] MEDS: TRICOR TAB 160 MG PO SCH (08:23)
[2021-08-02] MEDS: IVERMECTIN PO SCH (08:23)
[2021-08-02] MEDS: LOVENOX INJ 30 MG SYR SC SCH ×2 (08:23→20:49)
[2021-08-02] MEDS: VIBRAMYCIN PO SCH ×2 (08:23→20:52)
[2021-08-02] MEDS: ALTACE CAP 10 MG PO SCH (08:38)
[2021-08-02] MEDS: NEBIVOLOL 10 MG PO SCH (08:39)
[2021-08-02] MEDS: REMDESIVIR 100 MG in NS 250 ML IV 250 ML IV SCH (09:27)
[2021-08-02] MEDS: PULMICORT NEB TX 0.5 MG NEB SCH ×2 (09:52→20:42)
[2021-08-02] MEDS: BROVANA IN SCH ×2 (09:52→20:42)
[2021-08-02] MEDS: ZITHROMAX INJ 500 MG VIAL 500 MG in D5W 250 ML IV 250 ML IV SCH (10:37)
[2021-08-02] MEDS: NS 1,000 ML IV 1,000 ML IV SCH (15:58)
--- NOTE | 2021-08-02 18:58 | PCM.PROG ---
Progress Note Progress Note for Day of Date of Exam: 08/02/21 Subjective Subjective: Patient reports he feels better this am. O2 sats are running in the low 90's now. Less dyspnea today. No acute problems overnight. Breathing easier overall over last 2 days. Glucose still running high. Past Medical Family Social History Past Med/Fam/Surg Hx: No changes since H&P Allergies: Allergies Sulfa (Sulfonamide Antibiotics) [SULFA] Allergy (Verified 07/29/21 20:30) Review of Systems ROS: Changes notes (describe) Vital Signs and I&O's Vital Signs: Temperature 97.6 F Pulse Rate [Left Brachial] 75 Pulse Rate 78 Respiratory Rate 20 Blood Pressure [Left Arm] 142/65 Blood Pressure 138/72 O2 Sat by Pulse Oximetry 89 Intake and Output: Intake & Output 07/31/21 08/01/21 08/02/21 08/03/21 11:59 11:59 11:59 11:59 Intake Total 1640 / 1640 3830 / 3830 2970 / 2970 Balance 1640 / 1640 3830 / 3830 2970 / 2970 Physical Exam Oriented: Normal Eyes: Normal Ear: Normal Nose: Injected and Discharge Throat: Normal Respiratory: Rhonchi Cardiovascular: Normal : Normal Auscultation: Bowel Sounds: Normal Tenderness: Normal Skin: Normal Musculoskeletal: Normal Psychiatric: Normal Mood Description: Calm Affect: Normal Speech Pattern: Clear and Appropriate Laboratory and Diagnostics Result Diagrams: 08/02/21 04:00 08/02/21 04:00 Labs: Laboratory WBC 10.9 X10^3/uL (3.6-10.0) H 08/02/21 04:00 RBC 4.40 X10^6/uL (4.7-6.0) L 08/02/21 04:00 Hgb 13.6 g/dL (13.5-18.0) 08/02/21 04:00 Hct 38.3 % (42.0-54.0) L 08/02/21 04:00 MCV 87.0 fL (80.0-100.0) 08/02/21 04:00 MCH 30.9 pg (27.0-34.0) 08/02/21 04:00 MCHC 35.5 g/dL (33.0-35.0) H 08/02/21 04:00 RDW 13.3 % (11.6-16.5) 08/02/21 04:00 Plt Count 406 X10^3/uL (150.0-450.0) 08/02/21 04:00 Plt Count Comment Adequate (ADEQUATE) 08/02/21 04:00 MPV 8.1 fL (7.4-11.0) 08/02/21 04:00 Neut % (Auto) 90.5 % (42.0-75.0) H 08/02/21 04:00 Lymph % (Auto) 5.2 % (21.0-51.0) L 08/02/21 04:00 [place] % (Auto) 4.2 % (0.0-13.0) 08/02/21 04:00 Eos % (Auto) 0.0 % (0.9-2.9) L 08/02/21 04:00 Baso % (Auto) 0.1 % (0.2-1.0) L 08/02/21 04:00 Neut # (Auto) 9.9 x10^3/uL (2.2-4.8) H 08/02/21 04:00 Lymph # (Auto) 0.6 X10^3/uL (1.3-2.9) L 08/02/21 04:00 [place] # (Auto) 0.5 x10^3/uL (0.3-0.8) 08/02/21 04:00 Eos # (Auto) 0.0 x10^3/uL (0.0-0.2) 08/02/21 04:00 Baso # (Auto) 0.0 X10^3/uL (0.0-0.1) 08/02/21 04:00 Absolute Nucleated RBC 0.0 /100WBC 08/02/21 04:00 Total Counted 100 08/02/21 04:00 Neutrophils % (Manual) 95 % (39-76) H 08/02/21 04:00 Lymphocytes % (Manual) 4 % (13-43) L 08/02/21 04:00 Monocytes % (Manual) 1 % (4-9) L 08/02/21 04:00 Plt Morphology Comment Normal (NORMAL) 08/02/21 04:00 RBC Morphology Normal (NORMAL) 08/02/21 04:00 D-Dimer 1.27 ug/ml (0.0-0.57) H* 07/31/21 06:55 Sample Site Lr 07/31/21 06:40 ABG pH 7.460 (7.35-7.45) H 07/31/21 06:40 ABG pCO2 39.0 mmHg (35.0-45.0) 07/31/21 06:40 ABG pO2 51.0 mmHg (80.0-100.0) L 07/31/21 06:40 ABG HCO3 27.7 mmol/L (22-26) H 07/31/21 06:40 ABG O2 Saturation 88.0 % (90-100) L 07/31/21 06:40 ABG Base Excess 3.7 mmol/L (-2.0-2.0) H 07/31/21 06:40 Nolberto Test Pos 07/31/21 06:40 A-a Gradient 50.0 mmHg 07/31/21 06:40 FiO2 21.0 07/31/21 06:40 Blood Gas Comments Pt amy well cdn 07/31/21 06:40 Sodium 139 mmol/L (136-145) 08/02/21 04:00 Corrected Sodium 144 mmol/L (136-145) 08/02/21 04:00 Potassium 4.1 mmol/L (3.5-5.1) 08/02/21 04:00 Chloride 102 mmol/L (98-107) 08/02/21 04:00 Carbon Dioxide 26.9 mmol/L (21-32) 08/02/21 04:00 BUN 29 mg/dL (7-18) H 08/02/21 04:00 Creatinine 1.11 mg/dL (0.70-1.30) 08/02/21 04:00 Est GFR (MDRD) Af Amer > 60 (>60) 08/02/21 04:00 Est GFR (MDRD) Non-Af > 60 (>60) 08/02/21 04:00 Glucose 320 mg/dL (65-99) H 08/02/21 04:00 POC Glucose (mg/dL) 404 mg/dL (65-99) H 08/02/21 16:13 Calcium 8.8 mg/dL (8.5-10.1) 08/02/21 04:00 Corrected Calcium 10.3 mg/dL (8.5-10.1) H 08/02/21 04:00 Total Bilirubin 0.30 mg/dL (0.2-1.0) 08/02/21 04:00 AST 69 Units/L (15-37) H 08/02/21 04:00 ALT 114 Units/L (12-78) H 08/02/21 04:00 Alkaline Phosphatase 186 Units/L (46-116) H 08/02/21 04:00 Total Protein 6.6 g/dL (6.4-8.2) 08/02/21 04:00 Albumin 2.1 g/dL (3.4-5.0) L 08/02/21 04:00 Globulin 4.5 g/dL (2.5-4.5) 08/02/21 04:00 Albumin/Globulin Ratio 0.5 Ratio (1.1-2.1) L 08/02/21 04:00 SARS-CoV-2 (PCR) Positive (NEGATIVE) A 07/31/21 06:53 Influenza Type A (PCR) Negative (NEGATIVE) 07/31/21 06:53 Influenza Type B (PCR) Negative (NEGATIVE) 07/31/21 06:53 RSV (PCR) Negative (NEGATIVE) 07/31/21 06:53 Radiology Reviewed: Yes Plan (1) Elevated LFTs: Status: Acute Plan: D/C Simvastatin. Recheck LFT's in am. (2) COVID-19: Status: Acute Plan: Covid Protocol. Ween down Solumedrol to 60 mg bid which will also help keep BS's down. Possible discharge home in am. (3) Pneumonia: Status: Acute Qualifiers: Laterality: bilateral Lung location: lower lobe of lung Pneumonia type: due to unspecified organism Qualified Code(s): J18.9 - Pneumonia, unspecified organism Narrative Support Text: Improving Plan: Continue IV Zithromax and Vibramycin. Add Ivermectin. Check CXR this am. (4) Hypoxia: Status: Acute Plan: Supplemental O2 (5) Uncontrolled diabetes mellitus with hyperglycemia: Status: Acute Qualifiers: Diabetes mellitus type: type 2 Qualified Code(s): E11.65 - Type 2 diabetes mellitus with hyperglycemia Plan: Sliding scale regular insulin. Increase Lantus form 50 Units bid to 65 Units bid. (6) Dyslipidemia: Status: Acute (7) HTN (hypertension): Status: Acute Plan: Continue Nebivolol.
[2021-08-02] MEDS: SNACK - Diabetic Appropriate PO SCH (20:00)
[2021-08-02] MEDS: ZOCOR TAB 10 MG PO SCH (20:48)
[2021-08-03] MEDS: ASCORBIC ACID INJ MULTI-DOSE VIAL 1,500 MG in NS 50 ML IV 50 ML IV SCH ×4 (02:20→20:37)
[2021-08-03 05:25] LABS: BASOPHILS % (AUTO) 0.1 % (0.2-1.0); HEMATOCRIT 35.8 % (42.0-54.0); HEMOGLOBIN 12.5 g/dL (13.5-18.0); LYMPHOCYTES # (AUTO) 0.6 X10^3/uL (1.3-2.9); LYMPHOCYTES % (AUTO) 5.8 % (21.0-51.0); MEAN CORPUSCULAR HEMOGLOBIN 30.3 pg (27.0-34.0); MEAN CORPUSCULAR HGB CONC 34.8 g/dL (33.0-35.0); MEAN CORPUSCULAR VOLUME 87.1 fL (80.0-100.0); MEAN PLATELET VOLUME 7.8 fL (7.4-11.0); MONOCYTES # (AUTO) 0.5 x10^3/uL (0.3-0.8); MONOCYTES % (AUTO) 5.3 % (0.0-13.0); NEUTROPHILS # (AUTO) 8.8 x10^3/uL (2.2-4.8); NEUTROPHILS % (AUTO) 88.8 % (42.0-75.0); RED BLOOD COUNT 4.12 X10^6/uL (4.7-6.0); WHITE BLOOD COUNT 9.9 X10^3/uL (3.6-10.0)
[2021-08-03 05:47] LABS: ALANINE AMINOTRANSFERASE 153 Units/L (12-78); ALBUMIN 1.9 g/dL (3.4-5.0); ALKALINE PHOSPHATASE 170 Units/L (46-116); ASPARTATE AMINO TRANSFERASE 88 Units/L (15-37); BLOOD UREA NITROGEN 27 mg/dL (7-18); CALCIUM 8.3 mg/dL (8.5-10.1); CARBON DIOXIDE 27.6 mmol/L (21-32); CHLORIDE 107 mmol/L (98-107); COR NA(FOR HYPERGLY) 144 mmol/L (136-145); CREATININE 0.93 mg/dL (0.70-1.30); SODIUM 141 mmol/L (136-145); TOTAL PROTEIN 5.6 g/dL (6.4-8.2); eGFR NON BLACK RACES > 60 (>60)
[2021-08-03] MEDS: HumaLOG SC SCH ×3 (06:55→16:55)
--- NOTE | 2021-08-03 08:02 | RAD ---
HISTORYSOB, PNEUMONIS, COVID +STUDYCHEST, 1 [id number]/27/2022.TECHNIQUEAP view of the chestFINDINGSCardiac and mediastinal contours are within normal limits. No significant change in moderate bilateral airspace and interstitial opacities throughout both lungs. No definite pleural effusion or pneumothorax.IMPRESSIONNo significant change.Electronically signed by: Misael Swanson (Aug 03, 2021 08:00:30)
[2021-08-03] MEDS: NEBIVOLOL 10 MG PO SCH (08:09)
[2021-08-03] MEDS: ZINC SULFATE PO SCH ×2 (08:22→20:38)
[2021-08-03] MEDS: ZETIA TAB 10 MG PO SCH (08:23)
[2021-08-03] MEDS: VIBRAMYCIN PO SCH ×2 (08:23→20:39)
[2021-08-03] MEDS: VITAMIN D3 125 mcg (5,000 UNITS) PO SCH (08:23)
[2021-08-03] MEDS: LOVENOX INJ 30 MG SYR SC SCH ×2 (08:24→20:38)
[2021-08-03] MEDS: IVERMECTIN PO SCH (08:24)
[2021-08-03] MEDS: TRICOR TAB 160 MG PO SCH (08:25)
[2021-08-03] MEDS: PROTONIX TAB 40 MG PO SCH (08:25)
[2021-08-03] MEDS: PEPCID TAB 40 MG PO SCH ×2 (08:25→20:38)
[2021-08-03] MEDS: VITAMIN A PO SCH (08:25)
[2021-08-03] MEDS: SOLU-Medrol 40 MG VIAL IVP SCH ×2 (08:25→20:40)
[2021-08-03] MEDS: LANTUS SC SCH ×2 (09:00→20:39)
[2021-08-03] MEDS: BROVANA IN SCH ×2 (09:10→20:35)
[2021-08-03] MEDS: PULMICORT NEB TX 0.5 MG NEB SCH ×2 (09:10→20:35)
[2021-08-03] MEDS: REMDESIVIR 100 MG in NS 250 ML IV 250 ML IV SCH (09:47)
[2021-08-03] MEDS: MUCINEX DM PO SCH ×2 (09:48→20:38)
[2021-08-03] MEDS: ZITHROMAX INJ 500 MG VIAL 500 MG in D5W 250 ML IV 250 ML IV SCH (10:59)
--- NOTE | 2021-08-03 12:12 | PCM.PROG ---
Progress Note Progress Note for Day of Date of Exam: 08/03/21 Subjective Subjective: Patient reports he feels better this am. O2 sats are running in the upper 80's to low 90's now. Less dyspnea today. No acute problems overnight. No change in CXR since yesterday. Breathing easier overall over last 2 days. Glucose still running high but down to 200's instead of 400's. Still getting SOB walking to bathroom and back. Past Medical Family Social History Past Med/Fam/Surg Hx: No changes since H&P Allergies: Allergies Sulfa (Sulfonamide Antibiotics) [SULFA] Allergy (Verified 07/29/21 20:30) Review of Systems ROS: Changes notes (describe) ROS changes noted: [place] Vital Signs and I&O's Vital Signs: Temperature 98.0 F Pulse Rate [Left Brachial] 80 Pulse Rate 90 Respiratory Rate 20 Blood Pressure [Left Arm] 134/60 Blood Pressure 138/72 O2 Sat by Pulse Oximetry 88 Intake and Output: Intake & Output 08/01/21 08/02/21 08/03/21 08/04/21 11:59 11:59 11:59 11:59 Intake Total 1640 / 1640 3830 / 3830 4464 / 4464 Balance 1640 / 1640 3830 / 3830 4464 / 4464 Physical Exam Oriented: Normal Eyes: Normal Ear: Normal Nose: Injected and Discharge Throat: Normal Respiratory: Right and Rhonchi Cardiovascular: Normal : Normal Auscultation: Bowel Sounds: Normal Tenderness: Normal Skin: Normal Musculoskeletal: Normal Psychiatric: Normal Mood Description: Calm Affect: Normal Speech Pattern: Clear and Appropriate Laboratory and Diagnostics Result Diagrams: 08/03/21 04:15 08/03/21 04:15 Labs: Laboratory WBC 9.9 X10^3/uL (3.6-10.0) 08/03/21 04:15 RBC 4.12 X10^6/uL (4.7-6.0) L 08/03/21 04:15 Hgb 12.5 g/dL (13.5-18.0) L 08/03/21 04:15 Hct 35.8 % (42.0-54.0) L 08/03/21 04:15 MCV 87.1 fL (80.0-100.0) 08/03/21 04:15 MCH 30.3 pg (27.0-34.0) 08/03/21 04:15 MCHC 34.8 g/dL (33.0-35.0) 08/03/21 04:15 RDW 13.0 % (11.6-16.5) 08/03/21 04:15 Plt Count 400 X10^3/uL (150.0-450.0) 08/03/21 04:15 Plt Count Comment Adequate (ADEQUATE) 08/02/21 04:00 MPV 7.8 fL (7.4-11.0) 08/03/21 04:15 Neut % (Auto) 88.8 % (42.0-75.0) H 08/03/21 04:15 Lymph % (Auto) 5.8 % (21.0-51.0) L 08/03/21 04:15 [place] % (Auto) 5.3 % (0.0-13.0) 08/03/21 04:15 Eos % (Auto) 0.0 % (0.9-2.9) L 08/03/21 04:15 Baso % (Auto) 0.1 % (0.2-1.0) L 08/03/21 04:15 Neut # (Auto) 8.8 x10^3/uL (2.2-4.8) H 08/03/21 04:15 Lymph # (Auto) 0.6 X10^3/uL (1.3-2.9) L 08/03/21 04:15 [place] # (Auto) 0.5 x10^3/uL (0.3-0.8) 08/03/21 04:15 Eos # (Auto) 0.0 x10^3/uL (0.0-0.2) 08/03/21 04:15 Baso # (Auto) 0.0 X10^3/uL (0.0-0.1) 08/03/21 04:15 Absolute Nucleated RBC 0.1 /100WBC 08/03/21 04:15 Total Counted 100 08/02/21 04:00 Neutrophils % (Manual) 95 % (39-76) H 08/02/21 04:00 Lymphocytes % (Manual) 4 % (13-43) L 08/02/21 04:00 Monocytes % (Manual) 1 % (4-9) L 08/02/21 04:00 Plt Morphology Comment Normal (NORMAL) 08/02/21 04:00 RBC Morphology Normal (NORMAL) 08/02/21 04:00 D-Dimer 1.27 ug/ml (0.0-0.57) H* 07/31/21 06:55 Sample Site Lr 07/31/21 06:40 ABG pH 7.460 (7.35-7.45) H 07/31/21 06:40 ABG pCO2 39.0 mmHg (35.0-45.0) 07/31/21 06:40 ABG pO2 51.0 mmHg (80.0-100.0) L 07/31/21 06:40 ABG HCO3 27.7 mmol/L (22-26) H 07/31/21 06:40 ABG O2 Saturation 88.0 % (90-100) L 07/31/21 06:40 ABG Base Excess 3.7 mmol/L (-2.0-2.0) H 07/31/21 06:40 Nolberto Test Pos 07/31/21 06:40 A-a Gradient 50.0 mmHg 07/31/21 06:40 FiO2 21.0 07/31/21 06:40 Blood Gas Comments Pt amy well cdn 07/31/21 06:40 Sodium 141 mmol/L (136-145) 08/03/21 04:15 Corrected Sodium 144 mmol/L (136-145) 08/03/21 04:15 Potassium 4.3 mmol/L (3.5-5.1) 08/03/21 04:15 Chloride 107 mmol/L (98-107) 08/03/21 04:15 Carbon Dioxide 27.6 mmol/L (21-32) 08/03/21 04:15 BUN 27 mg/dL (7-18) H 08/03/21 04:15 Creatinine 0.93 mg/dL (0.70-1.30) 08/03/21 04:15 Est GFR (MDRD) Af Amer > 60 (>60) 08/03/21 04:15 Est GFR (MDRD) Non-Af > 60 (>60) 08/03/21 04:15 Glucose 239 mg/dL (65-99) H 08/03/21 04:15 POC Glucose (mg/dL) 270 mg/dL (65-99) H 08/03/21 11:03 Calcium 8.3 mg/dL (8.5-10.1) L 08/03/21 04:15 Corrected Calcium 10.0 mg/dL (8.5-10.1) 08/03/21 04:15 Total Bilirubin 0.30 mg/dL (0.2-1.0) 08/03/21 04:15 AST 88 Units/L (15-37) H 08/03/21 04:15 ALT 153 Units/L (12-78) H 08/03/21 04:15 Alkaline Phosphatase 170 Units/L (46-116) H 08/03/21 04:15 Total Protein 5.6 g/dL (6.4-8.2) L 08/03/21 04:15 Albumin 1.9 g/dL (3.4-5.0) L 08/03/21 04:15 Globulin 3.7 g/dL (2.5-4.5) 08/03/21 04:15 Albumin/Globulin Ratio 0.5 Ratio (1.1-2.1) L 08/03/21 04:15 SARS-CoV-2 (PCR) Positive (NEGATIVE) A 07/31/21 06:53 Influenza Type A (PCR) Negative (NEGATIVE) 07/31/21 06:53 Influenza Type B (PCR) Negative (NEGATIVE) 07/31/21 06:53 RSV (PCR) Negative (NEGATIVE) 07/31/21 06:53 Radiology Reviewed: Yes Plan (1) Elevated LFTs: Status: Acute Plan: D/C Simvastatin. Recheck LFT's in am. (2) COVID-19: Status: Acute Narrative Support Text: Improvement has slowed but he is reporting daily improvments in breathing. Plan: Covid Protocol. On Solumedrol to 60 mg bid which will also help keep BS's down. Will add Ivermectin today. (3) Pneumonia: Status: Acute Qualifiers: Laterality: bilateral Lung location: lower lobe of lung Pneumonia typ e: due to unspecified organism Qualified Code(s): J18.9 - Pneumonia, unspecified organism Plan: Continue IV Zithromax and Vibramycin. Add Ivermectin. Check CXR this am. (4) Hypoxia: Status: Acute Plan: Supplemental O2 (5) Uncontrolled diabetes mellitus with hyperglycemia: Status: Acute Qualifiers: Diabetes mellitus type: type 2 Qualified Code(s): E11.65 - Type 2 diabetes mellitus with hyperglycemia Plan: Sliding scale regular insulin. Increase Lantus form 50 Units bid to 65 Units bid. (6) Dyslipidemia: Status: Acute (7) HTN (hypertension): Status: Acute Narrative Support Text: Stable at this time. Plan: Continue Nebivolol.
[2021-08-03] MEDS: NS 1,000 ML IV 1,000 ML IV SCH ×2 (14:11→16:57)
[2021-08-03] MEDS: SNACK - Diabetic Appropriate PO SCH (20:00)
[2021-08-03] MEDS: ZOCOR TAB 10 MG PO SCH (20:39)
[2021-08-04] MEDS: ASCORBIC ACID INJ MULTI-DOSE VIAL 1,500 MG in NS 50 ML IV 50 ML IV SCH ×4 (02:25→20:31)
[2021-08-04 05:48] LABS: BASOPHILS % (AUTO) 0.4 % (0.2-1.0); HEMOGLOBIN 13.1 g/dL (13.5-18.0); LYMPHOCYTES # (AUTO) 0.7 X10^3/uL (1.3-2.9); LYMPHOCYTES % (AUTO) 7.7 % (21.0-51.0); MEAN CORPUSCULAR HEMOGLOBIN 30.1 pg (27.0-34.0); MEAN CORPUSCULAR HGB CONC 34.5 g/dL (33.0-35.0); MEAN CORPUSCULAR VOLUME 87.3 fL (80.0-100.0); MEAN PLATELET VOLUME 7.9 fL (7.4-11.0); MONOCYTES # (AUTO) 0.5 x10^3/uL (0.3-0.8); MONOCYTES % (AUTO) 5.8 % (0.0-13.0); NEUTROPHILS # (AUTO) 7.7 x10^3/uL (2.2-4.8); NEUTROPHILS % (AUTO) 86.1 % (42.0-75.0); RED BLOOD COUNT 4.36 X10^6/uL (4.7-6.0); RED CELL DISTRIBUTION WIDTH 12.9 % (11.6-16.5)
[2021-08-04 05:50] LABS: ALANINE AMINOTRANSFERASE 170 Units/L (12-78); ALBUMIN 1.9 g/dL (3.4-5.0); ALKALINE PHOSPHATASE 161 Units/L (46-116); ASPARTATE AMINO TRANSFERASE 61 Units/L (15-37); BLOOD UREA NITROGEN 25 mg/dL (7-18); CALCIUM 8.3 mg/dL (8.5-10.1); CARBON DIOXIDE 27.7 mmol/L (21-32); CHLORIDE 108 mmol/L (98-107); COR NA(FOR HYPERGLY) 143 mmol/L (136-145); CREATININE 0.89 mg/dL (0.70-1.30); SODIUM 142 mmol/L (136-145); TOTAL PROTEIN 5.5 g/dL (6.4-8.2); eGFR NON BLACK RACES > 60 (>60)
[2021-08-04] MEDS: HumaLOG SC SCH ×3 (07:30→16:26)
[2021-08-04] MEDS: PULMICORT NEB TX 0.5 MG NEB SCH ×2 (09:09→20:27)
[2021-08-04] MEDS: BROVANA IN SCH ×2 (09:09→20:27)
[2021-08-04] MEDS: IVERMECTIN PO SCH (09:14)
[2021-08-04] MEDS: ZINC SULFATE PO SCH ×2 (09:14→20:33)
[2021-08-04] MEDS: ZETIA TAB 10 MG PO SCH (09:14)
[2021-08-04] MEDS: MUCINEX DM PO SCH ×2 (09:14→20:32)
[2021-08-04] MEDS: ZITHROMAX INJ 500 MG VIAL 500 MG in D5W 250 ML IV 250 ML IV SCH (09:14)
[2021-08-04] MEDS: VIBRAMYCIN PO SCH ×2 (09:15→20:32)
[2021-08-04] MEDS: VITAMIN D3 125 mcg (5,000 UNITS) PO SCH (09:15)
[2021-08-04] MEDS: NEBIVOLOL 10 MG PO SCH (09:15)
[2021-08-04] MEDS: SOLU-Medrol 40 MG VIAL IVP SCH ×2 (09:15→20:32)
[2021-08-04] MEDS: PEPCID TAB 40 MG PO SCH ×2 (09:15→20:33)
[2021-08-04] MEDS: REMDESIVIR 100 MG in NS 250 ML IV 250 ML IV SCH (09:16)
[2021-08-04] MEDS: VITAMIN A PO SCH (09:16)
[2021-08-04] MEDS: TRICOR TAB 160 MG PO SCH (09:16)
[2021-08-04] MEDS: LANTUS SC SCH ×2 (09:16→20:33)
[2021-08-04] MEDS: PROTONIX TAB 40 MG PO SCH (09:16)
[2021-08-04] MEDS: LOVENOX INJ 30 MG SYR SC SCH ×2 (09:25→20:31)
[2021-08-04] MEDS: ZOSYN VIAL 3.375 GRAMS 3.375 G in NS 100 ML IV + SPIKE MINIBAG* 100 ML IV SCH ×3 (10:41→22:06)
--- NOTE | 2021-08-04 13:25 | PCM.PROG ---
Progress Note Progress Note for Day of Date of Exam: 08/04/21 Subjective Subjective: Patient seen at bedside, earlier this morning while patient went to the restroom, he had worsening dyspnea. His sats were noted to be 57% with POX. Patient was placed on 5L NC. His sats have remains in the mid 80s. He states he feels better at rest. He does get SOB with exertion. He has been coughing up some mucus. Denies fever or chills. Labs/imaging reviewed CXR: moderate bilateral opacities Plan: start HHFNC to keep sats > 90%, wean O2 as tolerated. Continue nebs, pulmicort and IS. Will add smart vest. Continue doxycycline, add Zosyn. DC azithromycin. Continue solumedrol. Change lantus to 50 units BID. Monitor AM labs/imaging. Past Medical Family Social History Past Med/Fam/Surg Hx: No changes since H&P Allergies: Allergies Sulfa (Sulfonamide Antibiotics) [SULFA] Allergy (Verified 07/29/21 20:30) Review of Systems ROS: Changes notes (describe) Vital Signs and I&O's Vital Signs: Temperature 97.8 F Pulse Rate [Left Brachial] 79 Pulse Rate 104 Respiratory Rate 20 Blood Pressure [Left Arm] 136/64 Blood Pressure 138/72 O2 Sat by Pulse Oximetry 83 Intake and Output: Intake & Output 08/01/21 08/02/21 08/03/21 08/04/21 23:59 23:59 23:59 23:59 Intake Total 3880 / 3880 4348 / 4348 4027 / 4027 450 / 450 Balance 3880 / 3880 4348 / 4348 4027 / 4027 450 / 450 Physical Exam Oriented: Normal Eyes: Normal Ear: Normal Nose: Normal Throat: Normal Respiratory: Generalized, Diminished and Rhonchi Cardiovascular: Normal Auscultation: Bowel Sounds: Normal Tenderness: Normal Skin: Normal Musculoskeletal: Normal Psychiatric: Normal Mood Description: Calm Affect: Normal Speech Pattern: Clear and Appropriate Laboratory and Diagnostics Result Diagrams: 08/04/21 05:12 08/04/21 05:12 Labs: Laboratory WBC 9.0 X10^3/uL (3.6-10.0) 08/04/21 05:12 RBC 4.36 X10^6/uL (4.7-6.0) L 08/04/21 05:12 Hgb 13.1 g/dL (13.5-18.0) L 08/04/21 05:12 Hct 38.0 % (42.0-54.0) L 08/04/21 05:12 MCV 87.3 fL (80.0-100.0) 08/04/21 05:12 MCH 30.1 pg (27.0-34.0) 08/04/21 05:12 MCHC 34.5 g/dL (33.0-35.0) 08/04/21 05:12 RDW 12.9 % (11.6-16.5) 08/04/21 05:12 Plt Count 390 X10^3/uL (150.0-450.0) 08/04/21 05:12 Plt Count Comment Adequate (ADEQUATE) 08/02/21 04:00 MPV 7.9 fL (7.4-11.0) 08/04/21 05:12 Neut % (Auto) 86.1 % (42.0-75.0) H 08/04/21 05:12 Lymph % (Auto) 7.7 % (21.0-51.0) L 08/04/21 05:12 [place] % (Auto) 5.8 % (0.0-13.0) 08/04/21 05:12 Eos % (Auto) 0.0 % (0.9-2.9) L 08/04/21 05:12 Baso % (Auto) 0.4 % (0.2-1.0) 08/04/21 05:12 Neut # (Auto) 7.7 x10^3/uL (2.2-4.8) H 08/04/21 05:12 Lymph # (Auto) 0.7 X10^3/uL (1.3-2.9) L 08/04/21 05:12 [place] # (Auto) 0.5 x10^3/uL (0.3-0.8) 08/04/21 05:12 Eos # (Auto) 0.0 x10^3/uL (0.0-0.2) 08/04/21 05:12 Baso # (Auto) 0.0 X10^3/uL (0.0-0.1) 08/04/21 05:12 Absolute Nucleated RBC 0.1 /100WBC 08/04/21 05:12 Total Counted 100 08/02/21 04:00 Neutrophils % (Manual) 95 % (39-76) H 08/02/21 04:00 Lymphocytes % (Manual) 4 % (13-43) L 08/02/21 04:00 Monocytes % (Manual) 1 % (4-9) L 08/02/21 04:00 Plt Morphology Comment Normal (NORMAL) 08/02/21 04:00 RBC Morphology Normal (NORMAL) 08/02/21 04:00 D-Dimer 1.27 ug/ml (0.0-0.57) H* 07/31/21 06:55 Sample Site Lr 07/31/21 06:40 ABG pH 7.460 (7.35-7.45) H 07/31/21 06:40 ABG pCO2 39.0 mmHg (35.0-45.0) 07/31/21 06:40 ABG pO2 51.0 mmHg (80.0-100.0) L 07/31/21 06:40 ABG HCO3 27.7 mmol/L (22-26) H 07/31/21 06:40 ABG O2 Saturation 88.0 % (90-100) L 07/31/21 06:40 ABG Base Excess 3.7 mmol/L (-2.0-2.0) H 07/31/21 06:40 Nolberto Test Pos 07/31/21 06:40 A-a Gradient 50.0 mmHg 07/31/21 06:40 FiO2 21.0 07/31/21 06:40 Blood Gas Comments Pt amy well cdn 07/31/21 06:40 Sodium 142 mmol/L (136-145) 08/04/21 05:12 Corrected Sodium 143 mmol/L (136-145) 08/04/21 05:12 Potassium 4.5 mmol/L (3.5-5.1) 08/04/21 05:12 Chloride 108 mmol/L (98-107) H 08/04/21 05:12 Carbon Dioxide 27.7 mmol/L (21-32) 08/04/21 05:12 BUN 25 mg/dL (7-18) H 08/04/21 05:12 Creatinine 0.89 mg/dL (0.70-1.30) 08/04/21 05:12 Est GFR (MDRD) Af Amer > 60 (>60) 08/04/21 05:12 Est GFR (MDRD) Non-Af > 60 (>60) 08/04/21 05:12 Glucose 134 mg/dL (65-99) H 08/04/21 05:12 POC Glucose (mg/dL) 183 mg/dL (65-99) H 08/04/21 11:20 Calcium 8.3 mg/dL (8.5-10.1) L 08/04/21 05:12 Corrected Calcium 10.0 mg/dL (8.5-10.1) 08/04/21 05:12 Total Bilirubin 0.40 mg/dL (0.2-1.0) 08/04/21 05:12 AST 61 Units/L (15-37) H 08/04/21 05:12 ALT 170 Units/L (12-78) H 08/04/21 05:12 Alkaline Phosphatase 161 Units/L (46-116) H 08/04/21 05:12 C-Reactive Protein 21.90 mg/L (0-3.0) H 08/04/21 05:12 Total Protein 5.5 g/dL (6.4-8.2) L 08/04/21 05:12 Albumin 1.9 g/dL (3.4-5.0) L 08/04/21 05:12 Globulin 3.6 g/dL (2.5-4.5) 08/04/21 05:12 Albumin/Globulin Ratio 0.5 Ratio (1.1-2.1) L 08/04/21 05:12 SARS-CoV-2 (PCR) Positive (NEGATIVE) A 07/31/21 06:53 Influenza Type A (PCR) Negative (NEGATIVE) 07/31/21 06:53 Influenza Type B (PCR) Negative (NEGATIVE) 07/31/21 06:53 RSV (PCR) Negative (NEGATIVE) 07/31/21 06:53 Plan (1) Acute respiratory failure with hypoxia: Status: Acute (2) COVID-19: Status: Acute (3) Pneumonia: Status: Acute Qualifiers: Laterality: bilateral Lung location: lower lobe of lung Pneumonia type: due to unspecified organism Qualified Code(s): J18.9 - Pneumonia, unspecified organism (4) Elevated LFTs: Status: Acute (5) Hypoxia: Status: Acute Plan: Supplemental O2 (6) Uncontrolled diabetes mellitus with hyperglycemia: Status: Acute Qualifiers: Diabetes mellitus type: type 2 Qualified Code(s): E11.65 - Type 2 diabetes mellitus with hyperglycemia (7) Dyslipidemia: Status: Acute (8) HTN (hypertension): Status: Acute Qualifiers: Hypertension type: primary hypertension Qualified Code(s): I10 - Essential (primary) hypertension
[2021-08-04] MEDS: NS 1,000 ML IV 1,000 ML IV SCH (15:10)
[2021-08-04] MEDS: SNACK - Diabetic Appropriate PO SCH (20:31)
[2021-08-04] MEDS: ZOCOR TAB 10 MG PO SCH (20:33)
[2021-08-04 22:32] LABS: ABG ALLEN TEST POS; ABG BASE EXCESS 6.6 mmol/L (-2.0-2.0); ABG HCO3 30.5 mmol/L (22-26)
[2021-08-05] MEDS: ASCORBIC ACID INJ MULTI-DOSE VIAL 1,500 MG in NS 50 ML IV 50 ML IV SCH ×4 (02:25→21:16)
[2021-08-05] MEDS: ZOSYN VIAL 3.375 GRAMS 3.375 G in NS 100 ML IV + SPIKE MINIBAG* 100 ML IV SCH ×3 (05:21→21:11)
[2021-08-05 06:15] LABS: BASOPHILS % (AUTO) 0.1 % (0.2-1.0); EOSINOPHILS % (AUTO) 0.1 % (0.9-2.9); HEMATOCRIT 38.9 % (42.0-54.0); HEMOGLOBIN 13.6 g/dL (13.5-18.0); LYMPHOCYTES # (AUTO) 0.7 X10^3/uL (1.3-2.9); LYMPHOCYTES % (AUTO) 7.3 % (21.0-51.0); MEAN CORPUSCULAR HEMOGLOBIN 30.6 pg (27.0-34.0); MEAN CORPUSCULAR HGB CONC 35.1 g/dL (33.0-35.0); MEAN CORPUSCULAR VOLUME 87.3 fL (80.0-100.0); MONOCYTES # (AUTO) 0.4 x10^3/uL (0.3-0.8); MONOCYTES % (AUTO) 4.4 % (0.0-13.0); NEUTROPHILS # (AUTO) 8.8 x10^3/uL (2.2-4.8); NEUTROPHILS % (AUTO) 88.1 % (42.0-75.0); RED BLOOD COUNT 4.45 X10^6/uL (4.7-6.0); RED CELL DISTRIBUTION WIDTH 13.4 % (11.6-16.5)
[2021-08-05 06:30] LABS: BLOOD UREA NITROGEN 26 mg/dL (7-18); CALCIUM 8.5 mg/dL (8.5-10.1); CARBON DIOXIDE 29.4 mmol/L (21-32); CHLORIDE 105 mmol/L (98-107); CREATININE 0.86 mg/dL (0.70-1.30); SODIUM 139 mmol/L (136-145); eGFR NON BLACK RACES > 60 (>60)
[2021-08-05] MEDS: HumaLOG SC SCH ×3 (08:23→18:11)
[2021-08-05] MEDS: PULMICORT NEB TX 0.5 MG NEB SCH ×2 (08:59→20:45)
[2021-08-05] MEDS: BROVANA IN SCH ×2 (08:59→20:45)
[2021-08-05] MEDS: ZETIA TAB 10 MG PO SCH (09:00)
[2021-08-05] MEDS: NEBIVOLOL 10 MG PO SCH (09:00)
[2021-08-05] MEDS: VITAMIN A PO SCH (09:00)
[2021-08-05] MEDS: LANTUS SC SCH ×2 (09:00→21:15)
[2021-08-05] MEDS: VIBRAMYCIN PO SCH ×2 (09:00→21:14)
[2021-08-05] MEDS: TRICOR TAB 160 MG PO SCH (09:00)
[2021-08-05] MEDS: MUCINEX DM PO SCH ×2 (09:00→21:14)
[2021-08-05] MEDS: ZINC SULFATE PO SCH ×2 (09:00→21:14)
[2021-08-05] MEDS: SOLU-Medrol 40 MG VIAL IVP SCH ×2 (09:00→21:15)
[2021-08-05] MEDS: IVERMECTIN PO SCH (09:00)
[2021-08-05] MEDS: LOVENOX INJ 30 MG SYR SC SCH ×2 (09:00→21:12)
[2021-08-05] MEDS: PEPCID TAB 40 MG PO SCH ×2 (09:00→21:14)
[2021-08-05] MEDS: VITAMIN D3 125 mcg (5,000 UNITS) PO SCH (09:00)
[2021-08-05] MEDS: REMDESIVIR 100 MG in NS 250 ML IV 250 ML IV SCH (09:00)
[2021-08-05] MEDS: PROTONIX TAB 40 MG PO SCH (09:00)
--- NOTE | 2021-08-05 13:03 | PCM.PROG ---
Progress Note Progress Note for Day of Date of Exam: 08/05/21 Subjective Subjective: Patient seen at bedside, no acute events overnight. He states he feels better. He is currently on HHFNC at FiO2 60%. He still has dyspnea on exertion. He continues to have intermittent cough. He states smart vest helps a lot to bring up sputum. Denies fever or chills. Labs/imaging reviewed Plan: Wean O2 as tolerated to keep sats > 88%. Continue nebs, pulmicort and IS. Continue smart vest. Continue IV anitbiotics, solumedrol and Remdesivir. Continue lantus and SSI. Monitor AM labs/imaging. Past Medical Family Social History Past Med/Fam/Surg Hx: No changes since H&P Allergies: Allergies Sulfa (Sulfonamide Antibiotics) [SULFA] Allergy (Verified 07/29/21 20:30) Review of Systems ROS: No change since H&P Vital Signs and I&O's Vital Signs: Temperature 98.7 F Pulse Rate [Left Brachial] 68 Pulse Rate 84 Respiratory Rate 20 Blood Pressure [Left Arm] 134/79 Blood Pressure 138/72 O2 Sat by Pulse Oximetry 88 Intake and Output: Intake & Output 08/02/21 08/03/21 08/04/21 08/05/21 23:59 23:59 23:59 23:59 Intake Total 4348 / 4348 4027 / 4027 2171 / 2171 660 / 660 Balance 4348 / 4348 4027 / 4027 2171 / 2171 660 / 660 Physical Exam Oriented: Normal Eyes: Normal Ear: Normal Nose: Normal Throat: Normal Respiratory: Generalized, Diminished and Rhonchi Cardiovascular: Normal Auscultation: Bowel Sounds: Normal Tenderness: Normal Skin: Normal Musculoskeletal: Normal Psychiatric: Normal Mood Description: Calm Affect: Normal Speech Pattern: Clear and Appropriate Laboratory and Diagnostics Result Diagrams: 08/05/21 05:39 08/05/21 05:39 Labs: Laboratory WBC 10.0 X10^3/uL (3.6-10.0) 08/05/21 05:39 RBC 4.45 X10^6/uL (4.7-6.0) L 08/05/21 05:39 Hgb 13.6 g/dL (13.5-18.0) 08/05/21 05:39 Hct 38.9 % (42.0-54.0) L 08/05/21 05:39 MCV 87.3 fL (80.0-100.0) 08/05/21 05:39 MCH 30.6 pg (27.0-34.0) 08/05/21 05:39 MCHC 35.1 g/dL (33.0-35.0) H 08/05/21 05:39 RDW 13.4 % (11.6-16.5) 08/05/21 05:39 Plt Count 382 X10^3/uL (150.0-450.0) 08/05/21 05:39 Plt Count Comment Adequate (ADEQUATE) 08/02/21 04:00 MPV 8.0 fL (7.4-11.0) 08/05/21 05:39 Neut % (Auto) 88.1 % (42.0-75.0) H 08/05/21 05:39 Lymph % (Auto) 7.3 % (21.0-51.0) L 08/05/21 05:39 [place] % (Auto) 4.4 % (0.0-13.0) 08/05/21 05:39 Eos % (Auto) 0.1 % (0.9-2.9) L 08/05/21 05:39 Baso % (Auto) 0.1 % (0.2-1.0) L 08/05/21 05:39 Neut # (Auto) 8.8 x10^3/uL (2.2-4.8) H 08/05/21 05:39 Lymph # (Auto) 0.7 X10^3/uL (1.3-2.9) L 08/05/21 05:39 [place] # (Auto) 0.4 x10^3/uL (0.3-0.8) 08/05/21 05:39 Eos # (Auto) 0.0 x10^3/uL (0.0-0.2) 08/05/21 05:39 Baso # (Auto) 0.0 X10^3/uL (0.0-0.1) 08/05/21 05:39 Absolute Nucleated RBC 0.0 /100WBC 08/05/21 05:39 Total Counted 100 08/02/21 04:00 Neutrophils % (Manual) 95 % (39-76) H 08/02/21 04:00 Lymphocytes % (Manual) 4 % (13-43) L 08/02/21 04:00 Monocytes % (Manual) 1 % (4-9) L 08/02/21 04:00 Plt Morphology Comment Normal (NORMAL) 08/02/21 04:00 RBC Morphology Normal (NORMAL) 08/02/21 04:00 D-Dimer 1.27 ug/ml (0.0-0.57) H* 07/31/21 06:55 Sample Site Lrad 08/04/21 22:22 ABG pH 7.490 (7.35-7.45) H 08/04/21 22:22 ABG pCO2 40.0 mmHg (35.0-45.0) 08/04/21 22:22 ABG pO2 77.0 mmHg (80.0-100.0) L 08/04/21 22:22 ABG HCO3 30.5 mmol/L (22-26) H* 08/04/21 22:22 ABG O2 Saturation 96.0 % (90-100) 08/04/21 22:22 ABG Base Excess 6.6 mmol/L (-2.0-2.0) H 08/04/21 22:22 Nolberto Test Pos 08/04/21 22:22 A-a Gradient 315.0 mmHg 08/04/21 22:22 FiO2 62.0 08/04/21 22:22 Blood Gas Comments Osiris well ms 08/04/21 22:22 Sodium 139 mmol/L (136-145) 08/05/21 05:39 Corrected Sodium TNP 08/05/21 05:39 Potassium 4.7 mmol/L (3.5-5.1) 08/05/21 05:39 Chloride 105 mmol/L (98-107) 08/05/21 05:39 Carbon Dioxide 29.4 mmol/L (21-32) 08/05/21 05:39 BUN 26 mg/dL (7-18) H 08/05/21 05:39 Creatinine 0.86 mg/dL (0.70-1.30) 08/05/21 05:39 Est GFR (MDRD) Af Amer > 60 (>60) 08/05/21 05:39 Est GFR (MDRD) Non-Af > 60 (>60) 08/05/21 05:39 Glucose 88 mg/dL (65-99) 08/05/21 05:39 POC Glucose (mg/dL) 207 mg/dL (65-99) H 08/05/21 11:59 Calcium 8.5 mg/dL (8.5-10.1) 08/05/21 05:39 Corrected Calcium 10.0 mg/dL (8.5-10.1) 08/04/21 05:12 Total Bilirubin 0.40 mg/dL (0.2-1.0) 08/04/21 05:12 AST 61 Units/L (15-37) H 08/04/21 05:12 ALT 170 Units/L (12-78) H 08/04/21 05:12 Alkaline Phosphatase 161 Units/L (46-116) H 08/04/21 05:12 C-Reactive Protein 21.90 mg/L (0-3.0) H 08/04/21 05:12 Total Protein 5.5 g/dL (6.4-8.2) L 08/04/21 05:12 Albumin 1.9 g/dL (3.4-5.0) L 08/04/21 05:12 Globulin 3.6 g/dL (2.5-4.5) 08/04/21 05:12 Albumin/Globulin Ratio 0.5 Ratio (1.1-2.1) L 08/04/21 05:12 SARS-CoV-2 (PCR) Positive (NEGATIVE) A 07/31/21 06:53 Influenza Type A (PCR) Negative (NEGATIVE) 07/31/21 06:53 Influenza Type B (PCR) Negative (NEGATIVE) 07/31/21 06:53 RSV (PCR) Negative (NEGATIVE) 07/31/21 06:53 Plan (1) Acute respiratory failure with hypoxia: Status: Acute (2) COVID-19: Status: Acute (3) Pneumonia: Status: Acute Qualifiers: Laterality: bilateral Lung location: lower lobe of lung Pneumonia typ e: due to unspecified organism Qualified Code(s): J18.9 - Pneumonia, unspecified organism (4) Elevated LFTs: Status: Acute (5) Hypoxia: Status: Acute Plan: Supplemental O2 (6) Uncontrolled diabetes mellitus with hyperglycemia: Status: Acute Qualifiers: Diabetes mellitus type: type 2 Qualified Code(s): E11.65 - Type 2 diabetes mellitus with hyperglycemia (7) Dyslipidemia: Status: Acute (8) HTN (hypertension): Status: Acute Qualifiers: Hypertension type: primary hypertension Qualified Code(s): I10 - Essential (primary) hypertension
[2021-08-05] MEDS: ZOCOR TAB 10 MG PO SCH (21:14)
[2021-08-05] MEDS: SNACK - Diabetic Appropriate PO SCH (21:16)
[2021-08-06] MEDS: NS 1,000 ML IV 1,000 ML IV SCH ×2 (02:49→16:22)
[2021-08-06] MEDS: ASCORBIC ACID INJ MULTI-DOSE VIAL 1,500 MG in NS 50 ML IV 50 ML IV SCH ×4 (02:49→20:53)
[2021-08-06] MEDS: ZOSYN VIAL 3.375 GRAMS 3.375 G in NS 100 ML IV + SPIKE MINIBAG* 100 ML IV SCH ×3 (06:07→21:56)
[2021-08-06 06:33] LABS: BASOPHILS % (AUTO) 0.2 % (0.2-1.0); HEMATOCRIT 39.9 % (42.0-54.0); HEMOGLOBIN 13.8 g/dL (13.5-18.0); LYMPHOCYTES # (AUTO) 0.7 X10^3/uL (1.3-2.9); LYMPHOCYTES % (AUTO) 5.5 % (21.0-51.0); MEAN CORPUSCULAR HEMOGLOBIN 30.1 pg (27.0-34.0); MEAN CORPUSCULAR HGB CONC 34.7 g/dL (33.0-35.0); MEAN CORPUSCULAR VOLUME 86.9 fL (80.0-100.0); MEAN PLATELET VOLUME 8.2 fL (7.4-11.0); MONOCYTES # (AUTO) 0.7 x10^3/uL (0.3-0.8); MONOCYTES % (AUTO) 5.2 % (0.0-13.0); NEUTROPHILS # (AUTO) 11.7 x10^3/uL (2.2-4.8); NEUTROPHILS % (AUTO) 89.1 % (42.0-75.0); RED BLOOD COUNT 4.59 X10^6/uL (4.7-6.0); RED CELL DISTRIBUTION WIDTH 13.3 % (11.6-16.5); WHITE BLOOD COUNT 13.1 X10^3/uL (3.6-10.0)
[2021-08-06 06:34] LABS: BLOOD UREA NITROGEN 23 mg/dL (7-18); CALCIUM 8.2 mg/dL (8.5-10.1); CARBON DIOXIDE 27.2 mmol/L (21-32); CHLORIDE 104 mmol/L (98-107); COR NA(FOR HYPERGLY) 138 mmol/L (136-145); CREATININE 0.89 mg/dL (0.70-1.30); SODIUM 138 mmol/L (136-145); eGFR NON BLACK RACES > 60 (>60)
[2021-08-06] MEDS: PULMICORT NEB TX 0.5 MG NEB SCH ×2 (09:30→20:30)
[2021-08-06] MEDS: BROVANA IN SCH ×2 (09:30→20:30)
[2021-08-06] MEDS: HumaLOG SC SCH ×4 (09:39→17:43)
[2021-08-06] MEDS: IVERMECTIN PO SCH (09:41)
[2021-08-06] MEDS: LANTUS SC SCH ×2 (09:41→20:53)
[2021-08-06] MEDS: MUCINEX DM PO SCH ×2 (09:42→20:53)
[2021-08-06] MEDS: PROTONIX TAB 40 MG PO SCH (09:42)
[2021-08-06] MEDS: LOVENOX INJ 30 MG SYR SC SCH ×2 (09:42→20:53)
[2021-08-06] MEDS: PEPCID TAB 40 MG PO SCH ×2 (09:42→20:53)
[2021-08-06] MEDS: REMDESIVIR 100 MG in NS 250 ML IV 250 ML IV SCH (09:43)
[2021-08-06] MEDS: ZETIA TAB 10 MG PO SCH (09:43)
[2021-08-06] MEDS: TRICOR TAB 160 MG PO SCH (09:43)
[2021-08-06] MEDS: VIBRAMYCIN PO SCH ×2 (09:43→20:53)
[2021-08-06] MEDS: ZINC SULFATE PO SCH ×2 (09:44→20:53)
[2021-08-06] MEDS: VITAMIN A PO SCH (09:44)
[2021-08-06] MEDS: VITAMIN D3 125 mcg (5,000 UNITS) PO SCH (09:44)
[2021-08-06] MEDS: SOLU-Medrol 40 MG VIAL IVP SCH ×2 (09:59→21:56)
[2021-08-06] MEDS: NEBIVOLOL 10 MG PO SCH (10:00)
[2021-08-06 11:27] LABS: ALANINE AMINOTRANSFERASE 115 Units/L (12-78); ALBUMIN 1.8 g/dL (3.4-5.0); ALKALINE PHOSPHATASE 134 Units/L (46-116); ASPARTATE AMINO TRANSFERASE 30 Units/L (15-37); TOTAL PROTEIN 5.2 g/dL (6.4-8.2)
[2021-08-06] MEDS ORDERED: NS 100 ML IV 100 ML ONE (13:33)
[2021-08-06] MEDS ORDERED: ASCORBIC ACID INJ MULTI-DOSE VIAL IV ONE (13:33)
--- NOTE | 2021-08-06 16:51 | PCM.PROG ---
Progress Note Progress Note for Day of Date of Exam: 08/06/21 Subjective Subjective: Patient seen at bedside, no acute events overnight. He states he feels better. He is currently on HHFNC at FiO2 85%. He still has dyspnea on exertion. He continues to have intermittent cough. He states smart vest helps a lot to bring up sputum. Denies fever or chills. Labs/imaging reviewed Plan: Wean O2 as tolerated to keep sats > 88%. Continue nebs, pulmicort and IS. Continue smart vest. Continue IV anitbiotics, solumedrol and Remdesivir. Continue lantus and SSI. Monitor AM labs/imaging. Past Medical Family Social History Past Med/Fam/Surg Hx: No changes since H&P Allergies: Allergies Sulfa (Sulfonamide Antibiotics) [SULFA] Allergy (Verified 07/29/21 20:30) Review of Systems ROS: No change since H&P Vital Signs and I&O's Vital Signs: Temperature 97.6 F Pulse Rate [Left Brachial] 63 Pulse Rate 91 Respiratory Rate 22 Blood Pressure [Left Arm] 127/62 Blood Pressure 132/65 O2 Sat by Pulse Oximetry 85 Intake and Output: Intake & Output 08/04/21 08/05/21 08/06/21 08/07/21 11:59 11:59 11:59 11:59 Intake Total 3836 / 3836 2381 / 2381 2900 / 2900 1518 / 1518 Output Total 450 / 450 Balance 3836 / 3836 2381 / 2381 2450 / 2450 1518 / 1518 Physical Exam Oriented: Normal Eyes: Normal Ear: Normal Nose: Normal Throat: Normal Respiratory: Generalized, Diminished and Rhonchi Cardiovascular: Normal : Normal Auscultation: Bowel Sounds: Normal Tenderness: Normal Skin: Normal Musculoskeletal: Normal Psychiatric: Normal Mood Description: Calm Affect: Normal Speech Pattern: Clear Laboratory and Diagnostics Result Diagrams: 08/06/21 05:15 08/06/21 05:15 Labs: Laboratory WBC 13.1 X10^3/uL (3.6-10.0) H 08/06/21 05:15 RBC 4.59 X10^6/uL (4.7-6.0) L 08/06/21 05:15 Hgb 13.8 g/dL (13.5-18.0) 08/06/21 05:15 Hct 39.9 % (42.0-54.0) L 08/06/21 05:15 MCV 86.9 fL (80.0-100.0) 08/06/21 05:15 MCH 30.1 pg (27.0-34.0) 08/06/21 05:15 MCHC 34.7 g/dL (33.0-35.0) 08/06/21 05:15 RDW 13.3 % (11.6-16.5) 08/06/21 05:15 Plt Count 400 X10^3/uL (150.0-450.0) 08/06/21 05:15 Plt Count Comment Adequate (ADEQUATE) 08/02/21 04:00 MPV 8.2 fL (7.4-11.0) 08/06/21 05:15 Neut % (Auto) 89.1 % (42.0-75.0) H 08/06/21 05:15 Lymph % (Auto) 5.5 % (21.0-51.0) L 08/06/21 05:15 [place] % (Auto) 5.2 % (0.0-13.0) 08/06/21 05:15 Eos % (Auto) 0.0 % (0.9-2.9) L 08/06/21 05:15 Baso % (Auto) 0.2 % (0.2-1.0) 08/06/21 05:15 Neut # (Auto) 11.7 x10^3/uL (2.2-4.8) H 08/06/21 05:15 Lymph # (Auto) 0.7 X10^3/uL (1.3-2.9) L 08/06/21 05:15 [place] # (Auto) 0.7 x10^3/uL (0.3-0.8) 08/06/21 05:15 Eos # (Auto) 0.0 x10^3/uL (0.0-0.2) 08/06/21 05:15 Baso # (Auto) 0.0 X10^3/uL (0.0-0.1) 08/06/21 05:15 Absolute Nucleated RBC 0.0 /100WBC 08/06/21 05:15 Total Counted 100 08/02/21 04:00 Neutrophils % (Manual) 95 % (39-76) H 08/02/21 04:00 Lymphocytes % (Manual) 4 % (13-43) L 08/02/21 04:00 Monocytes % (Manual) 1 % (4-9) L 08/02/21 04:00 Plt Morphology Comment Normal (NORMAL) 08/02/21 04:00 RBC Morphology Normal (NORMAL) 08/02/21 04:00 D-Dimer 1.27 ug/ml (0.0-0.57) H* 07/31/21 06:55 Sample Site Lrad 08/04/21 22:22 ABG pH 7.490 (7.35-7.45) H 08/04/21 22:22 ABG pCO2 40.0 mmHg (35.0-45.0) 08/04/21 22:22 ABG pO2 77.0 mmHg (80.0-100.0) L 08/04/21 22:22 ABG HCO3 30.5 mmol/L (22-26) H* 08/04/21 22:22 ABG O2 Saturation 96.0 % (90-100) 08/04/21 22:22 ABG Base Excess 6.6 mmol/L (-2.0-2.0) H 08/04/21 22:22 Nolberto Test Pos 08/04/21 22:22 A-a Gradient 315.0 mmHg 08/04/21 22:22 FiO2 62.0 08/04/21 22:22 Blood Gas Comments Osiris well ms 08/04/21 22:22 Sodium 138 mmol/L (136-145) 08/06/21 05:15 Corrected Sodium 138 mmol/L (136-145) 08/06/21 05:15 Potassium 4.6 mmol/L (3.5-5.1) 08/06/21 05:15 Chloride 104 mmol/L (98-107) 08/06/21 05:15 Carbon Dioxide 27.2 mmol/L (21-32) 08/06/21 05:15 BUN 23 mg/dL (7-18) H 08/06/21 05:15 Creatinine 0.89 mg/dL (0.70-1.30) 08/06/21 05:15 Est GFR (MDRD) Af Amer > 60 (>60) 08/06/21 05:15 Est GFR (MDRD) Non-Af > 60 (>60) 08/06/21 05:15 Glucose 118 mg/dL (65-99) H 08/06/21 05:15 POC Glucose (mg/dL) 146 mg/dL (65-99) H 08/06/21 16:29 Calcium 8.2 mg/dL (8.5-10.1) L 08/06/21 05:15 Corrected Calcium 10.0 mg/dL (8.5-10.1) 08/06/21 05:15 Total Bilirubin 0.40 mg/dL (0.2-1.0) 08/06/21 05:15 AST 30 Units/L (15-37) 08/06/21 05:15 ALT 115 Units/L (12-78) H 08/06/21 05:15 Alkaline Phosphatase 134 Units/L (46-116) H 08/06/21 05:15 C-Reactive Protein 21.90 mg/L (0-3.0) H 08/04/21 05:12 Total Protein 5.2 g/dL (6.4-8.2) L 08/06/21 05:15 Albumin 1.8 g/dL (3.4-5.0) L 08/06/21 05:15 Globulin 3.4 g/dL (2.5-4.5) 08/06/21 05:15 Albumin/Globulin Ratio 0.5 Ratio (1.1-2.1) L 08/06/21 05:15 SARS-CoV-2 (PCR) Positive (NEGATIVE) A 07/31/21 06:53 Influenza Type A (PCR) Negative (NEGATIVE) 07/31/21 06:53 Influenza Type B (PCR) Negative (NEGATIVE) 07/31/21 06:53 RSV (PCR) Negative (NEGATIVE) 07/31/21 06:53 Plan (1) Acute respiratory failure with hypoxia: Status: Acute (2) COVID-19: Status: Acute Plan: Covid Protocol. On Solumedrol to 60 mg bid which will also help keep BS's down. Will add Ivermectin today. (3) Pneumonia: Status: Acute Qualifiers: Laterality: bilateral Lung location: lower lobe of lung Pneumonia type: due to unspecified organism Qualified Code(s): J18.9 - Pneumonia, unspecified organism Plan: Continue IV Zithromax and Vibramycin. Add Ivermectin. Check CXR this am. (4) Elevated LFTs: Status: Acute Plan: D/C Simvastatin. Recheck LFT's in am. (5) Hypoxia: Status: Acute Plan: Supplemental O2 (6) Uncontrolled diabetes mellitus with hyperglycemia: Status: Acute Qualifiers: Diabetes mellitus type: type 2 Qualified Code(s): E11.65 - Type 2 diabetes mellitus with hyperglycemia Plan: Sliding scale regular insulin. Increase Lantus form 50 Units bid to 65 Units bid. (7) Dyslipidemia: Status: Acute (8) HTN (hypertension): Status: Acute Qualifiers: Hypertension type: primary hypertension Qualified Code(s): I10 - Essential (primary) hypertension Plan: Continue Nebivolol.
[2021-08-06] MEDS: SNACK - Diabetic Appropriate PO SCH (20:00)
[2021-08-06] MEDS: ZOCOR TAB 10 MG PO SCH (20:53)
[2021-08-07] MEDS: ASCORBIC ACID INJ MULTI-DOSE VIAL 1,500 MG in NS 50 ML IV 50 ML IV SCH ×4 (03:01→20:50)
[2021-08-07 07:47] LABS: ABG ALLEN TEST POS; ABG BASE EXCESS 5.9 mmol/L (-2.0-2.0); ABG HCO3 29.7 mmol/L (22-26)
[2021-08-07] MEDS: BROVANA IN SCH ×2 (07:48→21:00)
[2021-08-07] MEDS: PULMICORT NEB TX 0.5 MG NEB SCH ×2 (07:48→21:00)
[2021-08-07 07:52] LABS: BASOPHILS % (AUTO) 0 % (0.2-1.0); EOSINOPHILS # (AUTO) 0.2 x10^3/uL (0.0-0.2); EOSINOPHILS % (AUTO) 1.3 % (0.9-2.9); HEMOGLOBIN 15.6 g/dL (13.5-18.0); LYMPHOCYTES # (AUTO) 0.9 X10^3/uL (1.3-2.9); LYMPHOCYTES % (AUTO) 5.1 % (21.0-51.0); MEAN CORPUSCULAR HEMOGLOBIN 29.9 pg (27.0-34.0); MEAN CORPUSCULAR HGB CONC 33.9 g/dL (33.0-35.0); MEAN CORPUSCULAR VOLUME 88.2 fL (80.0-100.0); MEAN PLATELET VOLUME 7.8 fL (7.4-11.0); MONOCYTES # (AUTO) 1.1 x10^3/uL (0.3-0.8); MONOCYTES % (AUTO) 6.4 % (0.0-13.0); NEUTROPHILS # (AUTO) 15.5 x10^3/uL (2.2-4.8); NEUTROPHILS % (AUTO) 87.2 % (42.0-75.0); RED BLOOD COUNT 5.21 X10^6/uL (4.7-6.0); RED CELL DISTRIBUTION WIDTH 13.4 % (11.6-16.5); WHITE BLOOD COUNT 17.8 X10^3/uL (3.6-10.0)
[2021-08-07 08:00] LABS: ALANINE AMINOTRANSFERASE 102 Units/L (12-78); ALBUMIN 2.1 g/dL (3.4-5.0); ALKALINE PHOSPHATASE 143 Units/L (46-116); ASPARTATE AMINO TRANSFERASE 32 Units/L (15-37); BLOOD UREA NITROGEN 21 mg/dL (7-18); CALCIUM 8.7 mg/dL (8.5-10.1); CARBON DIOXIDE 30.1 mmol/L (21-32); CHLORIDE 104 mmol/L (98-107); COR CA(FOR HYPOALB) 10.2 mg/dL (8.5-10.1); COR NA(FOR HYPERGLY) 141 mmol/L (136-145); CREATININE 0.88 mg/dL (0.70-1.30); SODIUM 140 mmol/L (136-145); TOTAL PROTEIN 6.1 g/dL (6.4-8.2); eGFR NON BLACK RACES > 60 (>60)
[2021-08-07 08:23] LABS: BAND NEUTROPHILS % 2 % (0-10)
[2021-08-07 08:24] LABS: PLATELET MORPHOLOGY COMMENT NORMAL (NORMAL)
[2021-08-07] MEDS: ZINC SULFATE PO SCH ×2 (08:36→21:05)
[2021-08-07] MEDS: VITAMIN D3 125 mcg (5,000 UNITS) PO SCH (08:36)
[2021-08-07] MEDS: VITAMIN A PO SCH (08:37)
[2021-08-07] MEDS: LANTUS SC SCH ×2 (08:37→20:51)
[2021-08-07] MEDS: HumaLOG SC SCH ×3 (08:57→17:01)
[2021-08-07] MEDS: TRICOR TAB 160 MG PO SCH (08:58)
[2021-08-07] MEDS: ZETIA TAB 10 MG PO SCH (08:58)
[2021-08-07] MEDS: PEPCID TAB 40 MG PO SCH ×2 (08:58→20:52)
[2021-08-07] MEDS: SOLU-Medrol 40 MG VIAL IVP SCH ×2 (08:58→20:52)
[2021-08-07] MEDS: PROTONIX TAB 40 MG PO SCH (08:58)
[2021-08-07] MEDS: IVERMECTIN PO SCH (08:59)
[2021-08-07] MEDS: MUCINEX DM PO SCH ×2 (08:59→20:51)
[2021-08-07] MEDS: NEBIVOLOL 10 MG PO SCH (08:59)
[2021-08-07] MEDS: VIBRAMYCIN PO SCH (08:59)
[2021-08-07] MEDS: LOVENOX INJ 30 MG SYR SC SCH ×2 (09:00→20:51)
--- NOTE | 2021-08-07 09:06 | RAD ---
HISTORYCOVID, HYPOXIA, PNEUMONIA, FOLLOW UPSTUDYCHEST, 1 [id number]/28/2022.TECHNIQUEAP view of the chestFINDINGSCardiac and mediastinal contours are within normal limits. Similar appearance of scattered bilateral airspace and interstitial opacities. No definite pleural effusion or pneumothorax. Soft tissue attenuation limits evaluation.IMPRESSIONNo significant change.Electronically signed by: Misael Swanson (Aug 07, 2021 09:05:45)
--- NOTE | 2021-08-07 09:23 | PCM.PROG ---
Progress Note Progress Note for Day of Date of Exam: 08/07/21 Subjective Subjective: Patient seen at bedside, no acute events overnight. He states he feels better. He has been walking around room. He was placed on a NC yesterday but did not tolerate it and had to be restarted on HHF again.He is currently on HHFNC at FiO2 85%. He still has dyspnea on exertion but improved today since yesterday. He continues to have intermittent cough. He states smart vest helps a lot to bring up sputum. Denies fever or chills. Labs/imaging reviewed WBC's 17.8 Plan: Wean O2 as tolerated to keep sats > 88%. Continue nebs, pulmicort and IS. Continue smart vest. Continue IV anitbiotics, solumedrol and Remdesivir. Continue lantus and SSI. Monitor AM labs D/C Ivermectin today as well. labs/imaging. Will D/C Doxycycline today and start Levaquin because no significant improvement of his Covid Pneumonia and increased WBC's. Past Medical Family Social History Past Med/Fam/Surg Hx: No changes since H&P Allergies: Allergies Sulfa (Sulfonamide Antibiotics) [SULFA] Allergy (Verified 07/29/21 20:30) Review of Systems ROS: No change since H&P Vital Signs and I&O's Vital Signs: Temperature 97.7 F Pulse Rate [Left Brachial] 63 Pulse Rate 62 Respiratory Rate 22 Blood Pressure [Left Arm] 127/62 Blood Pressure 128/70 O2 Sat by Pulse Oximetry 95 Intake and Output: Intake & Output 08/04/21 08/05/21 08/06/21 08/07/21 11:59 11:59 11:59 11:59 Intake Total 3836 / 3836 2381 / 2381 2900 / 2900 1930 / 1930 Output Total 450 / 450 650 / 650 Balance 3836 / 3836 2381 / 2381 2450 / 2450 1280 / 1280 Physical Exam Oriented: Normal Eyes: Normal Ear: Normal Nose: Normal Throat: Normal Respiratory: Generalized and Diminished Cardiovascular: Normal : Normal Auscultation: Bowel Sounds: Normal Tenderness: Normal Skin: Normal Musculoskeletal: Normal Psychiatric: Normal Mood Description: Calm Affect: Normal Speech Pattern: Clear Laboratory and Diagnostics Result Diagrams: 08/07/21 07:35 08/07/21 07:35 Labs: Laboratory WBC 17.8 X10^3/uL (3.6-10.0) H 08/07/21 07:35 RBC 5.21 X10^6/uL (4.7-6.0) 08/07/21 07:35 Hgb 15.6 g/dL (13.5-18.0) 08/07/21 07:35 Hct 46.0 % (42.0-54.0) 08/07/21 07:35 MCV 88.2 fL (80.0-100.0) 08/07/21 07:35 MCH 29.9 pg (27.0-34.0) 08/07/21 07:35 MCHC 33.9 g/dL (33.0-35.0) 08/07/21 07:35 RDW 13.4 % (11.6-16.5) 08/07/21 07:35 Plt Count 447 X10^3/uL (150.0-450.0) 08/07/21 07:35 Plt Count Comment Adequate (ADEQUATE) 08/07/21 07:35 MPV 7.8 fL (7.4-11.0) 08/07/21 07:35 Neut % (Auto) 87.2 % (42.0-75.0) H 08/07/21 07:35 Lymph % (Auto) 5.1 % (21.0-51.0) L 08/07/21 07:35 [place] % (Auto) 6.4 % (0.0-13.0) 08/07/21 07:35 Eos % (Auto) 1.3 % (0.9-2.9) 08/07/21 07:35 Baso % (Auto) 0 % (0.2-1.0) L 08/07/21 07:35 Neut # (Auto) 15.5 x10^3/uL (2.2-4.8) H 08/07/21 07:35 Lymph # (Auto) 0.9 X10^3/uL (1.3-2.9) L 08/07/21 07:35 [place] # (Auto) 1.1 x10^3/uL (0.3-0.8) H 08/07/21 07:35 Eos # (Auto) 0.2 x10^3/uL (0.0-0.2) 08/07/21 07:35 Baso # (Auto) 0.0 X10^3/uL (0.0-0.1) 08/07/21 07:35 Absolute Nucleated RBC 0.0 /100WBC 08/07/21 07:35 Total Counted 100 08/07/21 07:35 Neutrophils % (Manual) 83 % (39-76) H 08/07/21 07:35 Band Neutrophils % 2 % (0-10) 08/07/21 07:35 Lymphocytes % (Manual) 10 % (13-43) L 08/07/21 07:35 Monocytes % (Manual) 5 % (4-9) 08/07/21 07:35 Plt Morphology Comment Normal (NORMAL) 08/07/21 07:35 RBC Morphology Normal (NORMAL) 08/07/21 07:35 D-Dimer 1.27 ug/ml (0.0-0.57) H* 07/31/21 06:55 Sample Site Lr 08/07/21 07:42 ABG pH 7.490 (7.35-7.45) H 08/07/21 07:42 ABG pCO2 39.0 mmHg (35.0-45.0) 08/07/21 07:42 ABG pO2 62.0 mmHg (80.0-100.0) L 08/07/21 07:42 ABG HCO3 29.7 mmol/L (22-26) H 08/07/21 07:42 ABG O2 Saturation 93.0 % (90-100) 08/07/21 07:42 ABG Base Excess 5.9 mmol/L (-2.0-2.0) H 08/07/21 07:42 Nolberto Test Pos 08/07/21 07:42 A-a Gradient 495.0 mmHg 08/07/21 07:42 FiO2 85.0 08/07/21 07:42 Blood Gas Comments Osiris well cb 08/07/21 07:42 Sodium 140 mmol/L (136-145) 08/07/21 07:35 Corrected Sodium 141 mmol/L (136-145) 08/07/21 07:35 Potassium 4.8 mmol/L (3.5-5.1) 08/07/21 07:35 Chloride 104 mmol/L (98-107) 08/07/21 07:35 Carbon Dioxide 30.1 mmol/L (21-32) 08/07/21 07:35 BUN 21 mg/dL (7-18) H 08/07/21 07:35 Creatinine 0.88 mg/dL (0.70-1.30) 08/07/21 07:35 Est GFR (MDRD) Af Amer > 60 (>60) 08/07/21 07:35 Est GFR (MDRD) Non-Af > 60 (>60) 08/07/21 07:35 Glucose 153 mg/dL (65-99) H 08/07/21 07:35 POC Glucose (mg/dL) 145 mg/dL (65-99) H 08/07/21 06:17 Calcium 8.7 mg/dL (8.5-10.1) 08/07/21 07:35 Corrected Calcium 10.2 mg/dL (8.5-10.1) H 08/07/21 07:35 Total Bilirubin 0.50 mg/dL (0.2-1.0) 08/07/21 07:35 AST 32 Units/L (15-37) 08/07/21 07:35 ALT 102 Units/L (12-78) H 08/07/21 07:35 Alkaline Phosphatase 143 Units/L (46-116) H 08/07/21 07:35 C-Reactive Protein 6.60 mg/L (0-3.0) H 08/07/21 07:35 Total Protein 6.1 g/dL (6.4-8.2) L 08/07/21 07:35 Albumin 2.1 g/dL (3.4-5.0) L 08/07/21 07:35 Globulin 4.0 g/dL (2.5-4.5) 08/07/21 07:35 Albumin/Globulin Ratio 0.5 Ratio (1.1-2.1) L 08/07/21 07:35 SARS-CoV-2 (PCR) Positive (NEGATIVE) A 07/31/21 06:53 Influenza Type A (PCR) Negative (NEGATIVE) 07/31/21 06:53 Influenza Type B (PCR) Negative (NEGATIVE) 07/31/21 06:53 RSV (PCR) Negative (NEGATIVE) 07/31/21 06:53 Plan (1) Acute respiratory failure with hypoxia: Status: Acute (2) COVID-19: Status: Acute Plan: Covid Protocol. On Solumedrol to 60 mg bid which will also help keep BS's down. Will add Ivermectin today. (3) Pneumonia: Status: Acute Qualifiers: Laterality: bilateral Lung location: lower lobe of lung Pneumonia type: due to unspecified organism Qualified Code(s): J18.9 - Pneumonia, unspecified organism Plan: Continue IV Zithromax and Vibramycin. Add Ivermectin. Check CXR this am. (4) Elevated LFTs: Status: Acute Plan: D/C Simvastatin. Recheck LFT's in am. (5) Hypoxia: Status: Acute Plan: Supplemental O2 (6) Uncontrolled diabetes mellitus with hyperglycemia: Status: Acute Qualifiers: Diabetes mellitus type: type 2 Qualified Code(s): E11.65 - Type 2 diabetes mellitus with hyperglycemia Plan: Sliding scale regular insulin. Increase Lantus form 50 Units bid to 65 Units bid. (7) Dyslipidemia: Status: Acute (8) HTN (hypertension): Status: Acute Qualifiers: Hypertension type: primary hypertension Qualified Code(s): I10 - Essential (primary) hypertension Plan: Continue Nebivolol. (9) Leukocytosis: Status: Acute
[2021-08-07] MEDS ORDERED: LEVAQUIN TAB 750 MG PO SCH (10:00)
[2021-08-07] MEDS: ZOSYN VIAL 3.375 GRAMS 3.375 G in NS 100 ML IV + SPIKE MINIBAG* 100 ML IV SCH ×2 (14:30→21:06)
[2021-08-07] MEDS: NS 1,000 ML IV 1,000 ML IV SCH (16:50)
[2021-08-07] MEDS: SNACK - Diabetic Appropriate PO SCH (20:50)
[2021-08-07] MEDS: ZOCOR TAB 10 MG PO SCH (20:52)
[2021-08-08] MEDS: ASCORBIC ACID INJ MULTI-DOSE VIAL 1,500 MG in NS 50 ML IV 50 ML IV SCH ×4 (02:10→21:30)
[2021-08-08] MEDS: ZOSYN VIAL 3.375 GRAMS 3.375 G in NS 100 ML IV + SPIKE MINIBAG* 100 ML IV SCH ×3 (05:56→23:00)
--- NOTE | 2021-08-08 06:03 | RAD ---
HISTORYSOB, PNEUMONIASTUDYCHEST, 1 VIEWCOMPARISONOne day prior.TECHNIQUEAP view of the chestFINDINGSCardiac and mediastinal contours are within normal limits. Similar appearance of scattered bilateral airspace and interstitial opacities. No definite pleural effusion or pneumothorax.IMPRESSIONNo significant change.Electronically signed by: Misael Swanson (Aug 08, 2021 06:02:49)
[2021-08-08 06:12] LABS: ABG BASE EXCESS 5.7 mmol/L (-2.0-2.0)
[2021-08-08 06:14] LABS: ABG HCO3 32.4 mmol/L (22-26)
[2021-08-08 06:15] LABS: ABG ALLEN TEST POS
[2021-08-08 06:22] LABS: BASOPHILS % (AUTO) 0.1 % (0.2-1.0); HEMOGLOBIN 14.9 g/dL (13.5-18.0); LYMPHOCYTES # (AUTO) 0.7 X10^3/uL (1.3-2.9); LYMPHOCYTES % (AUTO) 4.1 % (21.0-51.0); MEAN CORPUSCULAR HEMOGLOBIN 29.9 pg (27.0-34.0); MEAN CORPUSCULAR HGB CONC 33.9 g/dL (33.0-35.0); MEAN CORPUSCULAR VOLUME 88.3 fL (80.0-100.0); MEAN PLATELET VOLUME 8.1 fL (7.4-11.0); MONOCYTES % (AUTO) 6.1 % (0.0-13.0); NEUTROPHILS # (AUTO) 14.2 x10^3/uL (2.2-4.8); NEUTROPHILS % (AUTO) 89.7 % (42.0-75.0); RED BLOOD COUNT 4.98 X10^6/uL (4.7-6.0); RED CELL DISTRIBUTION WIDTH 13.6 % (11.6-16.5); WHITE BLOOD COUNT 15.8 X10^3/uL (3.6-10.0)
[2021-08-08 06:34] LABS: ALANINE AMINOTRANSFERASE 86 Units/L (12-78); ALBUMIN 2.1 g/dL (3.4-5.0); ALKALINE PHOSPHATASE 154 Units/L (46-116); ASPARTATE AMINO TRANSFERASE 27 Units/L (15-37); BLOOD UREA NITROGEN 23 mg/dL (7-18); CALCIUM 8.3 mg/dL (8.5-10.1); CARBON DIOXIDE 32.6 mmol/L (21-32); CHLORIDE 104 mmol/L (98-107); COR CA(FOR HYPOALB) 9.8 mg/dL (8.5-10.1); COR NA(FOR HYPERGLY) 142 mmol/L (136-145); SODIUM 141 mmol/L (136-145); TOTAL PROTEIN 5.8 g/dL (6.4-8.2); eGFR NON BLACK RACES > 60 (>60)
[2021-08-08 07:59] VITALS: BMI 32.8
[2021-08-08] MEDS: PULMICORT NEB TX 0.5 MG NEB SCH ×2 (08:35→21:00)
[2021-08-08] MEDS: BROVANA IN SCH ×2 (08:35→21:00)
[2021-08-08] MEDS: HumaLOG SC SCH ×3 (09:30→18:12)
[2021-08-08] MEDS: SOLU-Medrol 40 MG VIAL IVP SCH ×2 (09:45→21:29)
[2021-08-08] MEDS: PEPCID TAB 40 MG PO SCH ×2 (09:45→21:45)
[2021-08-08] MEDS: ZETIA TAB 10 MG PO SCH (09:45)
[2021-08-08] MEDS: ZINC SULFATE PO SCH ×2 (09:45→21:30)
[2021-08-08] MEDS: LANTUS SC SCH ×2 (09:45→21:45)
[2021-08-08] MEDS: TRICOR TAB 160 MG PO SCH (09:45)
[2021-08-08] MEDS: MUCINEX DM PO SCH ×2 (09:45→21:30)
[2021-08-08] MEDS: VITAMIN A PO SCH (09:45)
[2021-08-08] MEDS: PROTONIX TAB 40 MG PO SCH (09:45)
[2021-08-08] MEDS: VITAMIN D3 125 mcg (5,000 UNITS) PO SCH (09:45)
--- NOTE | 2021-08-08 10:02 | PCM.PROG ---
Progress Note Progress Note for Day of Date of Exam: 08/08/21 Subjective Subjective: Pt says he is breathing better this am. Still gets SOB if he walks around room. No acute problems overnight. leukocytosis improved. CXR no change. Past Medical Family Social History Past Med/Fam/Surg Hx: No changes since H&P Allergies: Allergies levofloxacin [From Levaquin] Allergy (Unknown, Verified 08/08/21 00:26) Sulfa (Sulfonamide Antibiotics) [SULFA] Allergy (Verified 07/29/21 20:30) Review of Systems ROS: No change since H&P Vital Signs and I&O's Vital Signs: Temperature 97.8 F Pulse Rate [Left Brachial] 62 Pulse Rate 82 Respiratory Rate 18 Blood Pressure [Left Arm] 127/66 Blood Pressure 128/70 O2 Sat by Pulse Oximetry 91 Intake and Output: Intake & Output 08/05/21 08/06/21 08/07/21 08/08/21 11:59 11:59 11:59 11:59 Intake Total 2381 / 2381 2900 / 2900 1930 / 1930 3034 / 3034 Output Total 450 / 450 650 / 650 Balance 2381 / 2381 2450 / 2450 1280 / 1280 3034 / 3034 Physical Exam Oriented: Normal Eyes: Normal Ear: Normal Nose: Normal Throat: Normal Respiratory: Generalized and Diminished Cardiovascular: Normal : Normal Auscultation: Bowel Sounds: Normal Tenderness: Normal Skin: Normal Musculoskeletal: Normal Psychiatric: Normal Mood Description: Calm Affect: Normal Speech Pattern: Clear Laboratory and Diagnostics Result Diagrams: 08/08/21 05:11 08/08/21 05:11 Labs: Laboratory WBC 15.8 X10^3/uL (3.6-10.0) H 08/08/21 05:11 RBC 4.98 X10^6/uL (4.7-6.0) 08/08/21 05:11 Hgb 14.9 g/dL (13.5-18.0) 08/08/21 05:11 Hct 44.0 % (42.0-54.0) 08/08/21 05:11 MCV 88.3 fL (80.0-100.0) 08/08/21 05:11 MCH 29.9 pg (27.0-34.0) 08/08/21 05:11 MCHC 33.9 g/dL (33.0-35.0) 08/08/21 05:11 RDW 13.6 % (11.6-16.5) 08/08/21 05:11 Plt Count 411 X10^3/uL (150.0-450.0) 08/08/21 05:11 Plt Count Comment Adequate (ADEQUATE) 08/07/21 07:35 MPV 8.1 fL (7.4-11.0) 08/08/21 05:11 Neut % (Auto) 89.7 % (42.0-75.0) H 08/08/21 05:11 Lymph % (Auto) 4.1 % (21.0-51.0) L 08/08/21 05:11 [place] % (Auto) 6.1 % (0.0-13.0) 08/08/21 05:11 Eos % (Auto) 0.0 % (0.9-2.9) L 08/08/21 05:11 Baso % (Auto) 0.1 % (0.2-1.0) L 08/08/21 05:11 Neut # (Auto) 14.2 x10^3/uL (2.2-4.8) H 08/08/21 05:11 Lymph # (Auto) 0.7 X10^3/uL (1.3-2.9) L 08/08/21 05:11 [place] # (Auto) 1.0 x10^3/uL (0.3-0.8) H 08/08/21 05:11 Eos # (Auto) 0.0 x10^3/uL (0.0-0.2) 08/08/21 05:11 Baso # (Auto) 0.0 X10^3/uL (0.0-0.1) 08/08/21 05:11 Absolute Nucleated RBC 0.0 /100WBC 08/08/21 05:11 Total Counted 100 08/07/21 07:35 Neutrophils % (Manual) 83 % (39-76) H 08/07/21 07:35 Band Neutrophils % 2 % (0-10) 08/07/21 07:35 Lymphocytes % (Manual) 10 % (13-43) L 08/07/21 07:35 Monocytes % (Manual) 5 % (4-9) 08/07/21 07:35 Plt Morphology Comment Normal (NORMAL) 08/07/21 07:35 RBC Morphology Normal (NORMAL) 08/07/21 07:35 D-Dimer 1.27 ug/ml (0.0-0.57) H* 07/31/21 06:55 Sample Site Lrad 08/08/21 06:06 ABG pH 7.370 (7.35-7.45) 08/08/21 06:06 ABG pCO2 56.0 mmHg (35.0-45.0) H* 08/08/21 06:06 ABG pO2 52.0 mmHg (80.0-100.0) L 08/08/21 06:06 ABG HCO3 32.4 mmol/L (22-26) H* 08/08/21 06:06 ABG O2 Saturation 85.0 % (90-100) L 08/08/21 06:06 ABG Base Excess 5.7 mmol/L (-2.0-2.0) H 08/08/21 06:06 Nolberto Test Pos 08/08/21 06:06 A-a Gradient 477.0 mmHg 08/08/21 06:06 FiO2 84.0 08/08/21 06:06 Blood Gas Comments Osiris well-mtf 08/08/21 06:06 Sodium 141 mmol/L (136-145) 08/08/21 05:11 Corrected Sodium 142 mmol/L (136-145) 08/08/21 05:11 Potassium 4.8 mmol/L (3.5-5.1) 08/08/21 05:11 Chloride 104 mmol/L (98-107) 08/08/21 05:11 Carbon Dioxide 32.6 mmol/L (21-32) H 08/08/21 05:11 BUN 23 mg/dL (7-18) H 08/08/21 05:11 Creatinine 1.00 mg/dL (0.70-1.30) 08/08/21 05:11 Est GFR (MDRD) Af Amer > 60 (>60) 08/08/21 05:11 Est GFR (MDRD) Non-Af > 60 (>60) 08/08/21 05:11 Glucose 152 mg/dL (65-99) H 08/08/21 05:11 POC Glucose (mg/dL) 154 mg/dL (65-99) H 08/08/21 05:12 Calcium 8.3 mg/dL (8.5-10.1) L 08/08/21 05:11 Corrected Calcium 9.8 mg/dL (8.5-10.1) 08/08/21 05:11 Total Bilirubin 0.40 mg/dL (0.2-1.0) 08/08/21 05:11 AST 27 Units/L (15-37) 08/08/21 05:11 ALT 86 Units/L (12-78) H 08/08/21 05:11 Alkaline Phosphatase 154 Units/L (46-116) H 08/08/21 05:11 C-Reactive Protein 5.40 mg/L (0-3.0) H 08/08/21 05:11 Total Protein 5.8 g/dL (6.4-8.2) L 08/08/21 05:11 Albumin 2.1 g/dL (3.4-5.0) L 08/08/21 05:11 Globulin 3.7 g/dL (2.5-4.5) 08/08/21 05:11 Albumin/Globulin Ratio 0.6 Ratio (1.1-2.1) L 08/08/21 05:11 SARS-CoV-2 (PCR) Positive (NEGATIVE) A 07/31/21 06:53 Influenza Type A (PCR) Negative (NEGATIVE) 07/31/21 06:53 Influenza Type B (PCR) Negative (NEGATIVE) 07/31/21 06:53 RSV (PCR) Negative (NEGATIVE) 07/31/21 06:53 Radiology Reviewed: Yes Plan (1) Acute respiratory failure with hypoxia: Status: Acute Plan: Continue HHF and ween off as tolerated to keep O2 >88% (2) COVID-19: Status: Acute Plan: Covid Protocol. On Solumedrol to 60 mg bid which will also help keep BS's down. Will add Ivermectin today. (3) Pneumonia: Status: Acute Qualifiers: Laterality: bilateral Lung location: lower lobe of lung Pneumonia type: due to unspecified organism Qualified Code(s): J18.9 - Pneumonia, unspecified organism Plan: Continue IV Zithromax and Vibramycin Check CXR in am. (4) Elevated LFTs: Status: Acute Plan: D/C Simvastatin. Recheck LFT's in am. (5) Hypoxia: Status: Acute Plan: Supplemental O2 (6) Uncontrolled diabetes mellitus with hyperglycemia: Status: Acute Qualifiers: Diabetes mellitus type: type 2 Qualified Code(s): E11.65 - Type 2 diabetes mellitus with hyperglycemia Plan: Sliding scale regular insulin. Increase Lantus form 50 Units bid to 65 Units bid. (7) Dyslipidemia: Status: Acute (8) HTN (hypertension): Status: Acute Qualifiers: Hypertension type: primary hypertension Qualified Code(s): I10 - Essential (primary) hypertension Plan: Continue Nebivolol. (9) Leukocytosis: Status: Acute
[2021-08-08] MEDS: LOVENOX INJ 30 MG SYR SC SCH ×2 (10:38→21:29)
[2021-08-08] MEDS: NS 1,000 ML IV 1,000 ML IV SCH (18:14)
[2021-08-08] MEDS: SNACK - Diabetic Appropriate PO SCH (20:00)
[2021-08-08] MEDS: ZOCOR TAB 10 MG PO SCH (21:30)
[2021-08-09] MEDS: ASCORBIC ACID INJ MULTI-DOSE VIAL 1,500 MG in NS 50 ML IV 50 ML IV SCH ×4 (03:00→20:45)
--- NOTE | 2021-08-09 05:07 | RAD ---
PROCEDURE: Chest X-ray 1 View .HISTORY: Pneumonia and dyspnea.TECHNIQUE: AP view .COMPARISON: 08/08/2021.TECHNICAL QUALITY: Satisfactory .FINDINGS:Unremarkable cardio mediastinal silhouette and normal central vascularity.Patchy pneumonia both lung mendoza predominantly laterally and inferiorly with no pleural fluid or pneumothorax.IMPRESSION:Unchanged bilateral pneumonia.Electronically signed by: Reggie Sorensen (Aug 09, 2021 05:06:30)
[2021-08-09 05:25] LABS: ABG BASE EXCESS 8.7 mmol/L (-2.0-2.0)
[2021-08-09 05:27] LABS: ABG ALLEN TEST POS; ABG HCO3 32.8 mmol/L (22-26)
[2021-08-09 06:12] LABS: BASOPHILS # (AUTO) 0.1 X10^3/uL (0.0-0.1); BASOPHILS % (AUTO) 0.6 % (0.2-1.0); HEMATOCRIT 42.9 % (42.0-54.0); HEMOGLOBIN 14.6 g/dL (13.5-18.0); LYMPHOCYTES # (AUTO) 0.8 X10^3/uL (1.3-2.9); LYMPHOCYTES % (AUTO) 4.5 % (21.0-51.0); MEAN CORPUSCULAR HGB CONC 34.1 g/dL (33.0-35.0); MEAN CORPUSCULAR VOLUME 87.9 fL (80.0-100.0); MEAN PLATELET VOLUME 8.2 fL (7.4-11.0); MONOCYTES # (AUTO) 1.2 x10^3/uL (0.3-0.8); NEUTROPHILS # (AUTO) 15.1 x10^3/uL (2.2-4.8); NEUTROPHILS % (AUTO) 87.9 % (42.0-75.0); RED BLOOD COUNT 4.88 X10^6/uL (4.7-6.0); RED CELL DISTRIBUTION WIDTH 13.8 % (11.6-16.5); WHITE BLOOD COUNT 17.2 X10^3/uL (3.6-10.0)
[2021-08-09] MEDS: ZOSYN VIAL 3.375 GRAMS 3.375 G in NS 100 ML IV + SPIKE MINIBAG* 100 ML IV SCH ×3 (06:30→21:23)
[2021-08-09 06:33] LABS: ALANINE AMINOTRANSFERASE 69 Units/L (12-78); ALBUMIN 2.1 g/dL (3.4-5.0); ALKALINE PHOSPHATASE 144 Units/L (46-116); ASPARTATE AMINO TRANSFERASE 27 Units/L (15-37); BLOOD UREA NITROGEN 25 mg/dL (7-18); CALCIUM 8.6 mg/dL (8.5-10.1); CARBON DIOXIDE 30.9 mmol/L (21-32); CHLORIDE 107 mmol/L (98-107); COR CA(FOR HYPOALB) 10.1 mg/dL (8.5-10.1); CREATININE 0.87 mg/dL (0.70-1.30); SODIUM 142 mmol/L (136-145); TOTAL PROTEIN 5.7 g/dL (6.4-8.2); eGFR NON BLACK RACES > 60 (>60)
[2021-08-09] MEDS: HumaLOG SC SCH ×4 (09:21→19:32)
[2021-08-09] MEDS: PULMICORT NEB TX 0.5 MG NEB SCH ×2 (09:21→21:10)
[2021-08-09] MEDS: BROVANA IN SCH ×2 (09:21→21:10)
[2021-08-09] MEDS: LOVENOX INJ 30 MG SYR SC SCH ×2 (09:22→21:25)
[2021-08-09] MEDS: LANTUS SC SCH ×2 (09:22→21:23)
[2021-08-09] MEDS: PROTONIX TAB 40 MG PO SCH (09:23)
[2021-08-09] MEDS: SOLU-Medrol 40 MG VIAL IVP SCH ×2 (09:23→21:24)
[2021-08-09] MEDS: TRICOR TAB 160 MG PO SCH (09:23)
[2021-08-09] MEDS: MUCINEX DM PO SCH ×2 (09:23→21:25)
[2021-08-09] MEDS: PEPCID TAB 40 MG PO SCH ×2 (09:23→21:24)
[2021-08-09] MEDS: VITAMIN D3 125 mcg (5,000 UNITS) PO SCH (09:24)
[2021-08-09] MEDS: ZINC SULFATE PO SCH ×2 (09:24→21:24)
[2021-08-09] MEDS: ZETIA TAB 10 MG PO SCH (09:24)
[2021-08-09] MEDS: VITAMIN A PO SCH (09:24)
[2021-08-09] MEDS: ZITHROMAX INJ 500 MG VIAL 500 MG in NS 250 ML IV 250 ML IV SCH (10:55)
[2021-08-09] MEDS: NovoLIN R (or HumuLIN R) SUBCUT PRN (12:17)
[2021-08-09] MEDS: NS 1,000 ML IV 1,000 ML IV SCH (16:32)
[2021-08-09] MEDS: SNACK - Diabetic Appropriate PO SCH (20:00)
[2021-08-09] MEDS: ZOCOR TAB 10 MG PO SCH (21:24)
[2021-08-10] MEDS: ASCORBIC ACID INJ MULTI-DOSE VIAL 1,500 MG in NS 50 ML IV 50 ML IV SCH ×4 (03:48→20:37)
[2021-08-10 05:32] LABS: ALANINE AMINOTRANSFERASE 57 Units/L (12-78); ALKALINE PHOSPHATASE 116 Units/L (46-116); ASPARTATE AMINO TRANSFERASE 21 Units/L (15-37); BLOOD UREA NITROGEN 25 mg/dL (7-18); CALCIUM 8.5 mg/dL (8.5-10.1); CARBON DIOXIDE 28.5 mmol/L (21-32); COR CA(FOR HYPOALB) 10.1 mg/dL (8.5-10.1); CREATININE 0.84 mg/dL (0.70-1.30); TOTAL PROTEIN 5.5 g/dL (6.4-8.2); eGFR NON BLACK RACES > 60 (>60)
[2021-08-10 05:37] LABS: BASOPHILS % (AUTO) 0.1 % (0.2-1.0); CHLORIDE 104 mmol/L (98-107); HEMATOCRIT 41.4 % (42.0-54.0); HEMOGLOBIN 14.2 g/dL (13.5-18.0); LYMPHOCYTES # (AUTO) 0.7 X10^3/uL (1.3-2.9); LYMPHOCYTES % (AUTO) 4.2 % (21.0-51.0); MEAN CORPUSCULAR HEMOGLOBIN 30.4 pg (27.0-34.0); MEAN CORPUSCULAR HGB CONC 34.3 g/dL (33.0-35.0); MEAN CORPUSCULAR VOLUME 88.4 fL (80.0-100.0); MEAN PLATELET VOLUME 8.3 fL (7.4-11.0); MONOCYTES # (AUTO) 0.9 x10^3/uL (0.3-0.8); MONOCYTES % (AUTO) 5.4 % (0.0-13.0); NEUTROPHILS # (AUTO) 14.7 x10^3/uL (2.2-4.8); NEUTROPHILS % (AUTO) 90.3 % (42.0-75.0); RED BLOOD COUNT 4.69 X10^6/uL (4.7-6.0); RED CELL DISTRIBUTION WIDTH 13.6 % (11.6-16.5); SODIUM 137 mmol/L (136-145); WHITE BLOOD COUNT 16.2 X10^3/uL (3.6-10.0)
[2021-08-10 06:09] LABS: ABG BASE EXCESS 6.9 mmol/L (-2.0-2.0)
[2021-08-10 06:11] LABS: ABG HCO3 30.3 mmol/L (22-26)
--- NOTE | 2021-08-10 06:17 | RAD ---
HISTORYCOVID+STUDYCHEST, 1 [id number]/03/2022.TECHNIQUEAP view of the chestFINDINGSCardiac and mediastinal contours are within normal limits. No significant change in bilateral airspace and interstitial opacities. No definite pleural effusion or pneumothorax. Soft tissue attenuation limits evaluation.IMPRESSIONNo significant change.Electronically signed by: Misael Swanson (Aug 10, 2021 06:16:21)
[2021-08-10] MEDS: ZOSYN VIAL 3.375 GRAMS 3.375 G in NS 100 ML IV + SPIKE MINIBAG* 100 ML IV SCH ×3 (06:23→21:10)
[2021-08-10 06:24] LABS: PLATELET MORPHOLOGY COMMENT NORMAL (NORMAL)
[2021-08-10 06:44] LABS: ABG ALLEN TEST POS
--- NOTE | 2021-08-10 08:38 | PCM.PROG ---
Progress Note Progress Note for Day of Date of Exam: 08/09/21 Subjective Subjective: Pt says he is breathing better this am. Still gets SOB if he walks around room. No acute problems overnight. leukocytosis improved. CXR no change. Less dyspnea overall today. Past Medical Family Social History Past Med/Fam/Surg Hx: No changes since H&P Allergies: Allergies levofloxacin [From Levaquin] Allergy (Unknown, Verified 08/08/21 00:26) Sulfa (Sulfonamide Antibiotics) [SULFA] Allergy (Verified 07/29/21 20:30) Review of Systems ROS: No change since H&P Vital Signs and I&O's Vital Signs: Temperature 97.7 F Pulse Rate [Left Brachial] 63 Pulse Rate 70 Respiratory Rate 20 Blood Pressure [Left Arm] 127/78 Blood Pressure 128/70 O2 Sat by Pulse Oximetry 93 Intake and Output: Intake & Output 08/07/21 08/08/21 08/09/21 08/10/21 11:59 11:59 11:59 11:59 Intake Total 1930 / 1930 3034 / 3034 3027 / 3027 2909 / 2909 Output Total 650 / 650 3550 / 3550 2400 / 2400 Balance 1280 / 1280 3034 / 3034 -523 / -523 509 / 509 Physical Exam Oriented: Normal Eyes: Normal Ear: Normal Nose: Normal Throat: Normal Respiratory: Generalized and Diminished Cardiovascular: Normal : Normal Auscultation: Bowel Sounds: Normal Tenderness: Normal Skin: Normal Musculoskeletal: Normal Psychiatric: Normal Mood Description: Calm Affect: Normal Speech Pattern: Clear Laboratory and Diagnostics Result Diagrams: 08/10/21 04:19 08/10/21 04:19 Labs: Laboratory WBC 16.2 X10^3/uL (3.6-10.0) H 08/10/21 04:19 RBC 4.69 X10^6/uL (4.7-6.0) L 08/10/21 04:19 Hgb 14.2 g/dL (13.5-18.0) 08/10/21 04:19 Hct 41.4 % (42.0-54.0) L 08/10/21 04:19 MCV 88.4 fL (80.0-100.0) 08/10/21 04:19 MCH 30.4 pg (27.0-34.0) 08/10/21 04:19 MCHC 34.3 g/dL (33.0-35.0) 08/10/21 04:19 RDW 13.6 % (11.6-16.5) 08/10/21 04:19 Plt Count 308 X10^3/uL (150.0-450.0) 08/10/21 04:19 Plt Count Comment Adequate (ADEQUATE) 08/10/21 04:19 MPV 8.3 fL (7.4-11.0) 08/10/21 04:19 Neut % (Auto) 90.3 % (42.0-75.0) H 08/10/21 04:19 Lymph % (Auto) 4.2 % (21.0-51.0) L 08/10/21 04:19 [place] % (Auto) 5.4 % (0.0-13.0) 08/10/21 04:19 Eos % (Auto) 0.0 % (0.9-2.9) L 08/10/21 04:19 Baso % (Auto) 0.1 % (0.2-1.0) L 08/10/21 04:19 Neut # (Auto) 14.7 x10^3/uL (2.2-4.8) H 08/10/21 04:19 Lymph # (Auto) 0.7 X10^3/uL (1.3-2.9) L 08/10/21 04:19 [place] # (Auto) 0.9 x10^3/uL (0.3-0.8) H 08/10/21 04:19 Eos # (Auto) 0.0 x10^3/uL (0.0-0.2) 08/10/21 04:19 Baso # (Auto) 0.0 X10^3/uL (0.0-0.1) 08/10/21 04:19 Absolute Nucleated RBC 0.0 /100WBC 08/10/21 04:19 Total Counted 100 08/10/21 04:19 Neutrophils % (Manual) 93 % (39-76) H 08/10/21 04:19 Band Neutrophils % 2 % (0-10) 08/07/21 07:35 Lymphocytes % (Manual) 4 % (13-43) L 08/10/21 04:19 Monocytes % (Manual) 3 % (4-9) L 08/10/21 04:19 Plt Morphology Comment Normal (NORMAL) 08/10/21 04:19 RBC Morphology Normal (NORMAL) 08/10/21 04:19 D-Dimer 1.27 ug/ml (0.0-0.57) H* 07/31/21 06:55 Sample Site Rr 08/10/21 05:50 ABG pH 7.510 (7.35-7.45) H 08/10/21 05:50 ABG pCO2 38.0 mmHg (35.0-45.0) 08/10/21 05:50 ABG pO2 57.0 mmHg (80.0-100.0) L 08/10/21 05:50 ABG HCO3 30.3 mmol/L (22-26) H* 08/10/21 05:50 ABG O2 Saturation 92.0 % (90-100) 08/10/21 05:50 ABG Base Excess 6.9 mmol/L (-2.0-2.0) H 08/10/21 05:50 Nolberto Test Pos 08/10/21 05:50 A-a Gradient 209.0 mmHg 08/10/21 05:50 FiO2 44.0 08/10/21 05:50 Blood Gas Comments Osiris well kh 08/10/21 05:50 Sodium 137 mmol/L (136-145) 08/10/21 04:19 Corrected Sodium TNP 08/10/21 04:19 Potassium 4.0 mmol/L (3.5-5.1) 08/10/21 04:19 Chloride 104 mmol/L (98-107) 08/10/21 04:19 Carbon Dioxide 28.5 mmol/L (21-32) 08/10/21 04:19 BUN 25 mg/dL (7-18) H 08/10/21 04:19 Creatinine 0.84 mg/dL (0.70-1.30) 08/10/21 04:19 Est GFR (MDRD) Af Amer > 60 (>60) 08/10/21 04:19 Est GFR (MDRD) Non-Af > 60 (>60) 08/10/21 04:19 Glucose 81 mg/dL (65-99) 08/10/21 04:19 POC Glucose (mg/dL) 71 mg/dL (65-99) 08/10/21 05:25 Calcium 8.5 mg/dL (8.5-10.1) 08/10/21 04:19 Corrected Calcium 10.1 mg/dL (8.5-10.1) 08/10/21 04:19 Total Bilirubin 0.40 mg/dL (0.2-1.0) 08/10/21 04:19 AST 21 Units/L (15-37) 08/10/21 04:19 ALT 57 Units/L (12-78) 08/10/21 04:19 Alkaline Phosphatase 116 Units/L (46-116) 08/10/21 04:19 C-Reactive Protein 2.50 mg/L (0-3.0) 08/10/21 04:19 Total Protein 5.5 g/dL (6.4-8.2) L 08/10/21 04:19 Albumin 2.0 g/dL (3.4-5.0) L 08/10/21 04:19 Globulin 3.5 g/dL (2.5-4.5) 08/10/21 04:19 Albumin/Globulin Ratio 0.6 Ratio (1.1-2.1) L 08/10/21 04:19 SARS-CoV-2 (PCR) Positive (NEGATIVE) A 07/31/21 06:53 Influenza Type A (PCR) Negative (NEGATIVE) 07/31/21 06:53 Influenza Type B (PCR) Negative (NEGATIVE) 07/31/21 06:53 RSV (PCR) Negative (NEGATIVE) 07/31/21 06:53 Radiology Reviewed: Yes Plan (1) Acute respiratory failure with hypoxia: Status: Acute Plan: Continue HHF and ween off as tolerated to keep O2 >88% (2) COVID-19: Status: Acute Plan: Covid Protocol. On Solumedrol to 60 mg bid which will also help keep BS's down. Will add Ivermectin today. (3) Pneumonia: Status: Acute Qualifiers: Laterality: bilateral Lung location: lower lobe of lung Pneumonia type: due to unspecified organism Qualified Code(s): J18.9 - Pneumonia, unspecified organism Plan: Continue IV Zithromax and Vibramycin Check CXR in am. Add Meropenem (4) Elevated LFTs: Status: Acute Plan: D/C Simvastatin. Recheck LFT's in am. (5) Hypoxia: Status: Acute Plan: Supplemental O2 (6) Uncontrolled diabetes mellitus with hyperglycemia: Status: Acute Qualifiers: Diabetes mellitus type: type 2 Qualified Code(s): E11.65 - Type 2 diabetes mellitus with hyperglycemia Plan: Sliding scale regular insulin. Increase Lantus form 50 Units bid to 65 Units bid. (7) Dyslipidemia: Status: Acute (8) HTN (hypertension): Status: Acute Qualifiers: Hypertension type: primary hypertension Qualified Code(s): I10 - Essential (primary) hypertension Plan: Continue Nebivolol. (9) Leukocytosis: Status: Acute
--- NOTE | 2021-08-10 08:41 | PCM.PROG ---
Progress Note Progress Note for Day of Date of Exam: 08/10/21 Subjective Subjective: Pt says he is breathing better this am. Still gets SOB if he walks around room. No acute problems overnight. leukocytosis improved. CXR no change. Less dyspnea overall today. Tolerating NC on 6 L with no problems. Feels better since stopping HHF. Will ween down O2 as tolerated. Possible discharge home in 1-2 days if O2 sat remains >88% on 4L NC or less. Past Medical Family Social History Past Med/Fam/Surg Hx: No changes since H&P Allergies: Allergies levofloxacin [From Levaquin] Allergy (Unknown, Verified 08/08/21 00:26) Sulfa (Sulfonamide Antibiotics) [SULFA] Allergy (Verified 07/29/21 20:30) Review of Systems ROS: No change since H&P Vital Signs and I&O's Vital Signs: Temperature 97.7 F Pulse Rate [Left Brachial] 63 Pulse Rate 70 Respiratory Rate 20 Blood Pressure [Left Arm] 127/78 Blood Pressure 128/70 O2 Sat by Pulse Oximetry 93 Intake and Output: Intake & Output 08/07/21 08/08/21 08/09/21 08/10/21 11:59 11:59 11:59 11:59 Intake Total 1930 / 1930 3034 / 3034 3027 / 3027 2909 / 2909 Output Total 650 / 650 3550 / 3550 2400 / 2400 Balance 1280 / 1280 3034 / 3034 -523 / -523 509 / 509 Physical Exam Oriented: Normal Eyes: Normal Ear: Normal Nose: Normal Throat: Normal Respiratory: Generalized and Diminished Cardiovascular: Normal : Normal Auscultation: Bowel Sounds: Normal Tenderness: Normal Skin: Normal Musculoskeletal: Normal Psychiatric: Normal Mood Description: Calm Affect: Normal Speech Pattern: Clear Laboratory and Diagnostics Result Diagrams: 08/10/21 04:19 08/10/21 04:19 Labs: Laboratory WBC 16.2 X10^3/uL (3.6-10.0) H 08/10/21 04:19 RBC 4.69 X10^6/uL (4.7-6.0) L 08/10/21 04:19 Hgb 14.2 g/dL (13.5-18.0) 08/10/21 04:19 Hct 41.4 % (42.0-54.0) L 08/10/21 04:19 MCV 88.4 fL (80.0-100.0) 08/10/21 04:19 MCH 30.4 pg (27.0-34.0) 08/10/21 04:19 MCHC 34.3 g/dL (33.0-35.0) 08/10/21 04:19 RDW 13.6 % (11.6-16.5) 08/10/21 04:19 Plt Count 308 X10^3/uL (150.0-450.0) 08/10/21 04:19 Plt Count Comment Adequate (ADEQUATE) 08/10/21 04:19 MPV 8.3 fL (7.4-11.0) 08/10/21 04:19 Neut % (Auto) 90.3 % (42.0-75.0) H 08/10/21 04:19 Lymph % (Auto) 4.2 % (21.0-51.0) L 08/10/21 04:19 [place] % (Auto) 5.4 % (0.0-13.0) 08/10/21 04:19 Eos % (Auto) 0.0 % (0.9-2.9) L 08/10/21 04:19 Baso % (Auto) 0.1 % (0.2-1.0) L 08/10/21 04:19 Neut # (Auto) 14.7 x10^3/uL (2.2-4.8) H 08/10/21 04:19 Lymph # (Auto) 0.7 X10^3/uL (1.3-2.9) L 08/10/21 04:19 [place] # (Auto) 0.9 x10^3/uL (0.3-0.8) H 08/10/21 04:19 Eos # (Auto) 0.0 x10^3/uL (0.0-0.2) 08/10/21 04:19 Baso # (Auto) 0.0 X10^3/uL (0.0-0.1) 08/10/21 04:19 Absolute Nucleated RBC 0.0 /100WBC 08/10/21 04:19 Total Counted 100 08/10/21 04:19 Neutrophils % (Manual) 93 % (39-76) H 08/10/21 04:19 Band Neutrophils % 2 % (0-10) 08/07/21 07:35 Lymphocytes % (Manual) 4 % (13-43) L 08/10/21 04:19 Monocytes % (Manual) 3 % (4-9) L 08/10/21 04:19 Plt Morphology Comment Normal (NORMAL) 08/10/21 04:19 RBC Morphology Normal (NORMAL) 08/10/21 04:19 D-Dimer 1.27 ug/ml (0.0-0.57) H* 07/31/21 06:55 Sample Site Rr 08/10/21 05:50 ABG pH 7.510 (7.35-7.45) H 08/10/21 05:50 ABG pCO2 38.0 mmHg (35.0-45.0) 08/10/21 05:50 ABG pO2 57.0 mmHg (80.0-100.0) L 08/10/21 05:50 ABG HCO3 30.3 mmol/L (22-26) H* 08/10/21 05:50 ABG O2 Saturation 92.0 % (90-100) 08/10/21 05:50 ABG Base Excess 6.9 mmol/L (-2.0-2.0) H 08/10/21 05:50 Nolberto Test Pos 08/10/21 05:50 A-a Gradient 209.0 mmHg 08/10/21 05:50 FiO2 44.0 08/10/21 05:50 Blood Gas Comments Osiris well kh 08/10/21 05:50 Sodium 137 mmol/L (136-145) 08/10/21 04:19 Corrected Sodium TNP 08/10/21 04:19 Potassium 4.0 mmol/L (3.5-5.1) 08/10/21 04:19 Chloride 104 mmol/L (98-107) 08/10/21 04:19 Carbon Dioxide 28.5 mmol/L (21-32) 08/10/21 04:19 BUN 25 mg/dL (7-18) H 08/10/21 04:19 Creatinine 0.84 mg/dL (0.70-1.30) 08/10/21 04:19 Est GFR (MDRD) Af Amer > 60 (>60) 08/10/21 04:19 Est GFR (MDRD) Non-Af > 60 (>60) 08/10/21 04:19 Glucose 81 mg/dL (65-99) 08/10/21 04:19 POC Glucose (mg/dL) 71 mg/dL (65-99) 08/10/21 05:25 Calcium 8.5 mg/dL (8.5-10.1) 08/10/21 04:19 Corrected Calcium 10.1 mg/dL (8.5-10.1) 08/10/21 04:19 Total Bilirubin 0.40 mg/dL (0.2-1.0) 08/10/21 04:19 AST 21 Units/L (15-37) 08/10/21 04:19 ALT 57 Units/L (12-78) 08/10/21 04:19 Alkaline Phosphatase 116 Units/L (46-116) 08/10/21 04:19 C-Reactive Protein 2.50 mg/L (0-3.0) 08/10/21 04:19 Total Protein 5.5 g/dL (6.4-8.2) L 08/10/21 04:19 Albumin 2.0 g/dL (3.4-5.0) L 08/10/21 04:19 Globulin 3.5 g/dL (2.5-4.5) 08/10/21 04:19 Albumin/Globulin Ratio 0.6 Ratio (1.1-2.1) L 08/10/21 04:19 SARS-CoV-2 (PCR) Positive (NEGATIVE) A 07/31/21 06:53 Influenza Type A (PCR) Negative (NEGATIVE) 07/31/21 06:53 Influenza Type B (PCR) Negative (NEGATIVE) 07/31/21 06:53 RSV (PCR) Negative (NEGATIVE) 07/31/21 06:53 Plan (1) Acute respiratory failure with hypoxia: Status: Acute Plan: Continue HHF and ween off as tolerated to keep O2 >88% (2) COVID-19: Status: Acute Plan: Covid Protocol. On Solumedrol to 60 mg bid which will also help keep BS's down. Will add Ivermectin today. (3) Pneumonia: Status: Acute Qualifiers: Laterality: bilateral Lung location: lower lobe of lung Pneumonia type: due to unspecified organism Qualified Code(s): J18.9 - Pneumonia, unspecified organism Plan: Continue IV Zithromax and Vibramycin Check CXR in am. (4) Elevated LFTs: Status: Acute Plan: D/C Simvastatin. Recheck LFT's in am. (5) Hypoxia: Status: Acute Plan: Supplemental O2 (6) Uncontrolled diabetes mellitus with hyperglycemia: Status: Acute Qualifiers: Diabetes mellitus type: type 2 Qualified Code(s): E11.65 - Type 2 diabetes mellitus with hyperglycemia Plan: Sliding scale regular insulin. Increase Lantus form 50 Units bid to 65 Units bid. (7) Dyslipidemia: Status: Acute (8) HTN (hypertension): Status: Acute Qualifiers: Hypertension type: primary hypertension Qualified Code(s): I10 - Essential (primary) hypertension Plan: Continue Nebivolol. (9) Leukocytosis: Status: Acute
[2021-08-10] MEDS: LOVENOX INJ 30 MG SYR SC SCH ×2 (09:32→20:38)
[2021-08-10] MEDS: MUCINEX DM PO SCH ×2 (09:32→20:38)
[2021-08-10] MEDS: TRICOR TAB 160 MG PO SCH (09:33)
[2021-08-10] MEDS: PEPCID TAB 40 MG PO SCH ×2 (09:33→20:39)
[2021-08-10] MEDS: PROTONIX TAB 40 MG PO SCH (09:33)
[2021-08-10] MEDS: SOLU-Medrol 40 MG VIAL IVP SCH ×2 (09:33→20:39)
[2021-08-10] MEDS: VITAMIN A PO SCH (09:33)
[2021-08-10] MEDS: VITAMIN D3 125 mcg (5,000 UNITS) PO SCH (09:34)
[2021-08-10] MEDS: ZINC SULFATE PO SCH ×2 (09:34→20:39)
[2021-08-10] MEDS: ZETIA TAB 10 MG PO SCH (09:34)
[2021-08-10] MEDS: BROVANA IN SCH ×2 (09:49→21:57)
[2021-08-10] MEDS: PULMICORT NEB TX 0.5 MG NEB SCH ×2 (09:49→21:57)
[2021-08-10] MEDS: HumaLOG SC SCH ×3 (09:50→17:03)
[2021-08-10] MEDS: LANTUS SC SCH ×2 (09:50→20:37)
[2021-08-10] MEDS: ZITHROMAX INJ 500 MG VIAL 500 MG in NS 250 ML IV 250 ML IV SCH (09:56)
[2021-08-10] MEDS: NovoLIN R (or HumuLIN R) SUBCUT PRN ×2 (12:36→17:03)
[2021-08-10] MEDS: NS 1,000 ML IV 1,000 ML IV SCH (16:44)
[2021-08-10] MEDS: SNACK - Diabetic Appropriate PO SCH (20:39)
[2021-08-10] MEDS: ZOCOR TAB 10 MG PO SCH (20:39)
[2021-08-11] MEDS: ASCORBIC ACID INJ MULTI-DOSE VIAL 1,500 MG in NS 50 ML IV 50 ML IV SCH ×4 (03:38→20:53)
[2021-08-11] MEDS: ZOSYN VIAL 3.375 GRAMS 3.375 G in NS 100 ML IV + SPIKE MINIBAG* 100 ML IV SCH ×3 (05:31→21:37)
[2021-08-11 06:16] LABS: ABG ALLEN TEST POS; ABG BASE EXCESS 5.2 mmol/L (-2.0-2.0)
[2021-08-11 06:20] LABS: BASOPHILS # (AUTO) 0.1 X10^3/uL (0.0-0.1); BASOPHILS % (AUTO) 0.3 % (0.2-1.0); HEMATOCRIT 41.6 % (42.0-54.0); HEMOGLOBIN 14.3 g/dL (13.5-18.0); LYMPHOCYTES # (AUTO) 0.7 X10^3/uL (1.3-2.9); LYMPHOCYTES % (AUTO) 3.7 % (21.0-51.0); MEAN CORPUSCULAR HEMOGLOBIN 30.4 pg (27.0-34.0); MEAN CORPUSCULAR HGB CONC 34.3 g/dL (33.0-35.0); MEAN CORPUSCULAR VOLUME 88.6 fL (80.0-100.0); MEAN PLATELET VOLUME 8.3 fL (7.4-11.0); MONOCYTES % (AUTO) 5.1 % (0.0-13.0); NEUTROPHILS # (AUTO) 17.9 x10^3/uL (2.2-4.8); NEUTROPHILS % (AUTO) 90.9 % (42.0-75.0); RED CELL DISTRIBUTION WIDTH 13.8 % (11.6-16.5); WHITE BLOOD COUNT 19.7 X10^3/uL (3.6-10.0)
[2021-08-11 06:45] LABS: ALANINE AMINOTRANSFERASE 60 Units/L (12-78); ALKALINE PHOSPHATASE 109 Units/L (46-116); ASPARTATE AMINO TRANSFERASE 23 Units/L (15-37); BLOOD UREA NITROGEN 24 mg/dL (7-18); CALCIUM 8.3 mg/dL (8.5-10.1); CHLORIDE 106 mmol/L (98-107); COR CA(FOR HYPOALB) 9.9 mg/dL (8.5-10.1); COR NA(FOR HYPERGLY) 141 mmol/L (136-145); CREATININE 0.93 mg/dL (0.70-1.30); SODIUM 140 mmol/L (136-145); TOTAL PROTEIN 5.5 g/dL (6.4-8.2); eGFR NON BLACK RACES > 60 (>60)
--- NOTE | 2021-08-11 07:03 | RAD ---
HISTORYCOVID-19STUDYPortable AP chestCOMPARISONFebruary 2021FINDINGSContinued normal heart size and configuration. There is no change in distribution of bilateral pulmonary infiltrates. No additional consolidation, complicating pleural fluid or pneumothorax identified.IMPRESSIONStable and similar appearance of bilateral pneumonia.Electronically signed by: CELESTE COBOS (Aug 11, 2021 07:02:05)
[2021-08-11 07:55] LABS: PLATELET MORPHOLOGY COMMENT NORMAL (NORMAL)
[2021-08-11] MEDS: ZINC SULFATE PO SCH ×2 (08:25→20:55)
[2021-08-11] MEDS: PEPCID TAB 40 MG PO SCH ×2 (08:25→20:54)
[2021-08-11] MEDS: MUCINEX DM PO SCH ×2 (08:26→20:54)
[2021-08-11] MEDS: ZETIA TAB 10 MG PO SCH (08:26)
[2021-08-11] MEDS: VITAMIN D3 125 mcg (5,000 UNITS) PO SCH (08:26)
[2021-08-11] MEDS: SOLU-Medrol 40 MG VIAL IVP SCH ×2 (08:27→20:55)
[2021-08-11] MEDS: ZITHROMAX INJ 500 MG VIAL 500 MG in NS 250 ML IV 250 ML IV SCH (08:27)
[2021-08-11] MEDS: PROTONIX TAB 40 MG PO SCH (08:27)
[2021-08-11] MEDS: TRICOR TAB 160 MG PO SCH (08:27)
[2021-08-11] MEDS: VITAMIN A PO SCH (08:28)
[2021-08-11] MEDS: LOVENOX INJ 30 MG SYR SC SCH ×2 (08:28→20:54)
[2021-08-11] MEDS: HumaLOG SC SCH ×3 (08:45→17:08)
[2021-08-11] MEDS: PULMICORT NEB TX 0.5 MG NEB SCH ×2 (09:00→21:05)
[2021-08-11] MEDS: BROVANA IN SCH ×2 (09:00→21:05)
[2021-08-11] MEDS: LANTUS SC SCH ×2 (09:02→21:17)
[2021-08-11] MEDS: NS 1,000 ML IV 1,000 ML IV SCH (14:25)
--- NOTE | 2021-08-11 18:30 | PCM.PROG ---
Progress Note - Progress Note for Day of Date of Exam: 08/11/21 - Subjective Subjective: IS A 55 YEAR OLD PATIENT OF . HE IS BEING TREATED FOR PNEUMONIA DUE TO COVID-19, HYPOXIA. HE HAS A PMH OF UNCONTROLLED DIABETES, DYSLIPIDEMIA, AND HTN. TODAY, HE IS ALERT AND ORIENTED, SITTING UP IN BED ON MORNING ROUNDS. HE CONTINUES WITH COMPLAINTS OF SHORTNESS OF BREATH ON EXERTION. HE IS CURRENTLY UTILIZING OXYGEN VIA NASAL CANNULA AT 4 LPM. ON EXAMINATION, HEART IS REGULAR IN RATE AND RHYTHM. BILATERAL LUNGS ARE NOTED WITH DIMINSHED LUNG SOUNDS THROUGHOUT. ABDOMEN IS ROUND, SOFT, AND NON-TENDER WITH NORMAL BOWEL SOUNDS NOTED IN ALL QUADRANTS. HIS VITALS THIS MORNING ARE: 97.4-70-22-95%-152/68. LABS WERE OBTAINED. ABNORMAL LAB VALUES INCLUDE THE FOLLOWING: WBC 19.7, HCT 41.6, BUN 24, GLUCOSE 125, CALCIUM 8.3, TOTAL PROTEIN 5.5, ALUBMIN 2.0. ABG OBTAINED AND REVEALED: PH 7.480, PC02 39, P02 54, HC03 29.0, 02 SAT 90, BASE EXCESS 5.2, A-A GRADIENT 140, FI02 34.0. A CHEST XRAY WAS OBTAINED AND REVEALED: Stable and similar appearance of bilateral pneumonia. WE WILL CONTINUE HIS IV FLUIDS, ANTIBIOTICS, IV STEROIDS, HUMULIN R SLIDING SCALE, OTBS ACHS, NEBULIZER TREATMENTS, IMMUNE SUPPLEMENTS, AND CURRENT PLAN OF CARE. OTHERWISE, WE PLAN TO FOLLOW UP WITH AM LABS AND CHEST XRAY AND CONTINUE WITH CURRENT PLAN OF CARE. TIME SPENT ON CLINICAL ASSESSMENT, REVIEWING LABS AND IMAGING, DECISION MAKING, AND DOCUMENTATION WAS GREATER THAN 45 MINUTES. - Past Medical Family Social History Past Med/Fam/Surg Hx: No changes since H&P Allergies: Allergies levofloxacin [From Levaquin] Allergy (Unknown, Verified 08/08/21 00:26) Sulfa (Sulfonamide Antibiotics) [SULFA] Allergy (Verified 07/29/21 20:30) - Review of Systems ROS: No change since H&P - Vital Signs and I&O's Vital Signs: Temperature 97.5 F Pulse Rate [Left Brachial] 64 Pulse Rate 91 Respiratory Rate 20 Blood Pressure [Left Arm] 144/76 Blood Pressure 128/70 O2 Sat by Pulse Oximetry 96 Intake and Output: Intake & Output 02/0308/10/21 08/11/21 08/12/21 11:59 11:59 11:59 11:59 Intake Total 3027 / 3027 2909 / 2909 2618 / 2618 520 / 520 Output Total 3550 / 3550 2400 / 2400 1450 / 1450 1200 / 1200 Balance -523 / -523 509 / 509 1168 / 1168 -680 / -680 - Physical Exam Oriented: Normal Eyes: Normal Ear: Normal Nose: Normal Throat: Normal Respiratory: Generalized, Diminished Cardiovascular: Normal : Normal Auscultation: Bowel Sounds: Normal Palpation: Normal Tenderness: Normal Skin: Normal Musculoskeletal: Normal Psychiatric: Normal Mood Description: Calm Affect: Normal Speech Pattern: Clear - Laboratory and Diagnostics Result Diagrams: 08/11/21 05:25 08/11/21 05:25 Labs: Laboratory WBC 19.7 X10^3/uL (3.6-10.0) H 08/11/21 05:25 RBC 4.70 X10^6/uL (4.7-6.0) 08/11/21 05:25 Hgb 14.3 g/dL (13.5-18.0) 08/11/21 05:25 Hct 41.6 % (42.0-54.0) L 08/11/21 05:25 MCV 88.6 fL (80.0-100.0) 08/11/21 05:25 MCH 30.4 pg (27.0-34.0) 08/11/21 05:25 MCHC 34.3 g/dL (33.0-35.0) 08/11/21 05:25 RDW 13.8 % (11.6-16.5) 08/11/21 05:25 Plt Count 291 X10^3/uL (150.0-450.0) 08/11/21 05:25 Plt Count Comment Adequate (ADEQUATE) 08/11/21 05:25 MPV 8.3 fL (7.4-11.0) 08/11/21 05:25 Neut % (Auto) 90.9 % (42.0-75.0) H 08/11/21 05:25 Lymph % (Auto) 3.7 % (21.0-51.0) L 08/11/21 05:25 [place] % (Auto) 5.1 % (0.0-13.0) 08/11/21 05:25 Eos % (Auto) 0.0 % (0.9-2.9) L 08/11/21 05:25 Baso % (Auto) 0.3 % (0.2-1.0) 08/11/21 05:25 Neut # (Auto) 17.9 x10^3/uL (2.2-4.8) H 08/11/21 05:25 Lymph # (Auto) 0.7 X10^3/uL (1.3-2.9) L 08/11/21 05:25 [place] # (Auto) 1.0 x10^3/uL (0.3-0.8) H 08/11/21 05:25 Eos # (Auto) 0.0 x10^3/uL (0.0-0.2) 08/11/21 05:25 Baso # (Auto) 0.1 X10^3/uL (0.0-0.1) 08/11/21 05:25 Absolute Nucleated RBC 0.0 /100WBC 08/11/21 05:25 Total Counted 100 08/11/21 05:25 Neutrophils % (Manual) 90 % (39-76) H 08/11/21 05:25 Band Neutrophils % 2 % (0-10) 08/07/21 07:35 Lymphocytes % (Manual) 3 % (13-43) L 08/11/21 05:25 Monocytes % (Manual) 7 % (4-9) 08/11/21 05:25 Plt Morphology Comment Normal (NORMAL) 08/11/21 05:25 RBC Morphology Normal (NORMAL) 08/11/21 05:25 D-Dimer 1.27 ug/ml (0.0-0.57) H* 07/31/21 06:55 Sample Site Rr 08/11/21 05:00 ABG pH 7.480 (7.35-7.45) H 08/11/21 05:00 ABG pCO2 39.0 mmHg (35.0-45.0) 08/11/21 05:00 ABG pO2 54.0 mmHg (80.0-100.0) L 08/11/21 05:00 ABG HCO3 29.0 mmol/L (22-26) H 08/11/21 05:00 ABG O2 Saturation 90.0 % (90-100) 08/11/21 05:00 ABG Base Excess 5.2 mmol/L (-2.0-2.0) H 08/11/21 05:00 Nolberto Test Pos 08/11/21 05:00 A-a Gradient 140.0 mmHg 08/11/21 05:00 FiO2 34.0 08/11/21 05:00 Blood Gas Comments [facility] 08/11/21 05:00 Sodium 140 mmol/L (136-145) 08/11/21 05:25 Corrected Sodium 141 mmol/L (136-145) 08/11/21 05:25 Potassium 4.1 mmol/L (3.5-5.1) 08/11/21 05:25 Chloride 106 mmol/L (98-107) 08/11/21 05:25 Carbon Dioxide 28.0 mmol/L (21-32) 08/11/21 05:25 BUN 24 mg/dL (7-18) H 08/11/21 05:25 Creatinine 0.93 mg/dL (0.70-1.30) 08/11/21 05:25 Est GFR (MDRD) Af Amer > 60 (>60) 08/11/21 05:25 Est GFR (MDRD) Non-Af > 60 (>60) 08/11/21 05:25 Glucose 125 mg/dL (65-99) H 08/11/21 05:25 POC Glucose (mg/dL) 230 mg/dL (65-99) H 08/11/21 16:22 Calcium 8.3 mg/dL (8.5-10.1) L 08/11/21 05:25 Corrected Calcium 9.9 mg/dL (8.5-10.1) 08/11/21 05:25 Total Bilirubin 0.40 mg/dL (0.2-1.0) 08/11/21 05:25 AST 23 Units/L (15-37) 08/11/21 05:25 ALT 60 Units/L (12-78) 08/11/21 05:25 Alkaline Phosphatase 109 Units/L (46-116) 08/11/21 05:25 C-Reactive Protein 1.20 mg/L (0-3.0) 08/11/21 05:25 B-Natriuretic Peptide 16.0 pg/mL (0-79) 08/11/21 05:25 Total Protein 5.5 g/dL (6.4-8.2) L 08/11/21 05:25 Albumin 2.0 g/dL (3.4-5.0) L 08/11/21 05:25 Globulin 3.5 g/dL (2.5-4.5) 08/11/21 05:25 Albumin/Globulin Ratio 0.6 Ratio (1.1-2.1) L 08/11/21 05:25 SARS-CoV-2 (PCR) Positive (NEGATIVE) A 07/31/21 06:53 Influenza Type A (PCR) Negative (NEGATIVE) 07/31/21 06:53 Influenza Type B (PCR) Negative (NEGATIVE) 07/31/21 06:53 RSV (PCR) Negative (NEGATIVE) 07/31/21 06:53 - Plan (1) COVID-19 virus infection Status: Acute (2) Pneumonia Status: Acute Qualifiers: Pneumonia type: due to unspecified organism Laterality: bilateral Lung location: lower lobe of lung Qualified Code(s): J18.9 - Pneumonia, unspecified organism Plan: Continue IV Zithromax and Vibramycin. Check CXR in am. (3) Hypoxia Status: Acute Plan: Supplemental O2 (4) Dyslipidemia Status: Chronic (5) HTN (hypertension) Status: Chronic Qualifiers: Hypertension type: unspecified Qualified Code(s): I10 - Essential (primary) hypertension Plan: Continue Nebivolol. (6) Uncontrolled diabetes mellitus with hyperglycemia Status: Chronic Qualifiers: Diabetes mellitus type: type 2 Qualified Code(s): E11.65 - Type 2 diabetes mellitus with hyperglycemia Plan: Sliding scale regular insulin. Increase Lantus form 50 Units bid to 65 Units bid.
[2021-08-11] MEDS: SNACK - Diabetic Appropriate PO SCH (20:28)
[2021-08-11] MEDS: ZOCOR TAB 10 MG PO SCH (20:55)
[2021-08-12] MEDS: ASCORBIC ACID INJ MULTI-DOSE VIAL 1,500 MG in NS 50 ML IV 50 ML IV SCH ×4 (02:47→20:18)
[2021-08-12] MEDS: ZOSYN VIAL 3.375 GRAMS 3.375 G in NS 100 ML IV + SPIKE MINIBAG* 100 ML IV SCH ×3 (05:14→21:16)
[2021-08-12 05:34] LABS: BASOPHILS % (AUTO) 0 % (0.2-1.0); HEMOGLOBIN 13.9 g/dL (13.5-18.0); LYMPHOCYTES # (AUTO) 0.6 X10^3/uL (1.3-2.9); LYMPHOCYTES % (AUTO) 3.7 % (21.0-51.0); MEAN CORPUSCULAR HEMOGLOBIN 29.9 pg (27.0-34.0); MEAN CORPUSCULAR HGB CONC 33.8 g/dL (33.0-35.0); MEAN CORPUSCULAR VOLUME 88.5 fL (80.0-100.0); MONOCYTES # (AUTO) 0.7 x10^3/uL (0.3-0.8); MONOCYTES % (AUTO) 4.3 % (0.0-13.0); NEUTROPHILS # (AUTO) 15.7 x10^3/uL (2.2-4.8); RED BLOOD COUNT 4.63 X10^6/uL (4.7-6.0); RED CELL DISTRIBUTION WIDTH 13.8 % (11.6-16.5); WHITE BLOOD COUNT 17.1 X10^3/uL (3.6-10.0)
[2021-08-12 05:42] LABS: ABG BASE EXCESS 6.6 mmol/L (-2.0-2.0)
[2021-08-12 05:43] LABS: ABG ALLEN TEST POS; ABG HCO3 30.5 mmol/L (22-26)
[2021-08-12 05:50] LABS: ALANINE AMINOTRANSFERASE 51 Units/L (12-78); ALKALINE PHOSPHATASE 98 Units/L (46-116); ASPARTATE AMINO TRANSFERASE 22 Units/L (15-37); BLOOD UREA NITROGEN 21 mg/dL (7-18); CALCIUM 8.4 mg/dL (8.5-10.1); CARBON DIOXIDE 29.5 mmol/L (21-32); CHLORIDE 107 mmol/L (98-107); CREATININE 0.81 mg/dL (0.70-1.30); SODIUM 141 mmol/L (136-145); TOTAL PROTEIN 5.4 g/dL (6.4-8.2); eGFR NON BLACK RACES > 60 (>60)
[2021-08-12 06:54] LABS: PLATELET MORPHOLOGY COMMENT NORMAL (NORMAL)
--- NOTE | 2021-08-12 07:12 | RAD ---
HISTORYCOVID-19 pneumoniaSTUDYAP chestCOMPARISONFebruary 2021FINDINGSNo change in cardiac size or contour. There is slight interval progression of bilateral pulmonary infiltrates. There is no evidence for complicating pleural effusion or pneumothorax.IMPRESSIONSlight interval progression of bilateral pneumonia.Electronically signed by: CELESTE COBOS (Aug 12, 2021 07:11:33)
[2021-08-12] MEDS: ZETIA TAB 10 MG PO SCH (08:33)
[2021-08-12] MEDS: PEPCID TAB 40 MG PO SCH ×2 (08:33→20:20)
[2021-08-12] MEDS: ZINC SULFATE PO SCH ×2 (08:33→20:19)
[2021-08-12] MEDS: MUCINEX DM PO SCH ×2 (08:33→20:19)
[2021-08-12] MEDS: SOLU-Medrol 40 MG VIAL IVP SCH ×2 (08:34→20:20)
[2021-08-12] MEDS: TRICOR TAB 160 MG PO SCH (08:34)
[2021-08-12] MEDS: VITAMIN D3 125 mcg (5,000 UNITS) PO SCH (08:34)
[2021-08-12] MEDS: PROTONIX TAB 40 MG PO SCH (08:34)
[2021-08-12] MEDS: VITAMIN A PO SCH (08:34)
[2021-08-12] MEDS: HumaLOG SC SCH ×3 (08:35→16:43)
[2021-08-12] MEDS: LOVENOX INJ 30 MG SYR SC SCH ×2 (08:36→20:19)
[2021-08-12] MEDS: ZITHROMAX INJ 500 MG VIAL 500 MG in NS 250 ML IV 250 ML IV SCH (08:36)
[2021-08-12] MEDS: LANTUS SC SCH ×2 (08:36→20:18)
[2021-08-12] MEDS: PULMICORT NEB TX 0.5 MG NEB SCH ×2 (10:59→20:20)
[2021-08-12] MEDS: BROVANA IN SCH ×2 (10:59→20:20)
[2021-08-12] MEDS: NS 1,000 ML IV 1,000 ML IV SCH (15:08)
--- NOTE | 2021-08-12 15:58 | PCM.PROG ---
Progress Note - Progress Note for Day of Date of Exam: 08/12/21 - Subjective Subjective: IS A 55 YEAR OLD PATIENT OF . HE IS BEING TREATED FOR PNEUMONIA DUE TO COVID-19, HYPOXIA. HE HAS A PMH OF UNCONTROLLED DIABETES, DYSLIPIDEMIA, AND HTN. TODAY, HE IS ALERT AND ORIENTED, SITTING UP IN BED ON MORNING ROUNDS. HE CONTINUES WITH COMPLAINTS OF SHORTNESS OF BREATH ON EXERTION. HE IS CURRENTLY UTILIZING OXYGEN VIA NASAL CANNULA AT 4 LPM. ON EXAMINATION, HEART IS REGULAR IN RATE AND RHYTHM. BILATERAL LUNGS ARE NOTED WITH DIMINSHED LUNG SOUNDS THROUGHOUT. ABDOMEN IS ROUND, SOFT, AND NON-TENDER WITH NORMAL BOWEL SOUNDS NOTED IN ALL QUADRANTS. HIS VITALS THIS MORNING ARE: 98.4-65-20-94%-134/73. LABS WERE OBTAINED. ABNORMAL LAB VALUES INCLUDE THE FOLLOWING: WBC 17.1, RBC 4.63, HCT 41.0, BUN 21, CALCIUM 8.4, TOTAL PROTEIN 5.4, ALBUMIN 2.0. ABG OBTAINED AND REVEALED: PH 7.490, PCO2 40, P02 64, HC03 30.5, 02 SAT 94, BASE EXCESS 6.6, A-A GRADIENT 200, FI02 44. A CHEST XRAY WAS OBTAINED AND REVEALED: light interval progression of bilateral pneumonia. WE WILL CON TINUE HIS IV FLUIDS, ANTIBIOTICS, IV STEROIDS, HUMULIN R SLIDING SCALE, OTBS ACHS, NEBULIZER TREATMENTS, IMMUNE SUPPLEMENTS, AND CURRENT PLAN OF CARE. OTHERWISE, WE PLAN TO FOLLOW UP WITH AM LABS AND CHEST XRAY AND CONTINUE WITH CURRENT PLAN OF CARE. TIME SPENT ON CLINICAL ASSESSMENT, REVIEWING LABS AND IMAGING, DECISION MAKING, AND DOCUMENTATION WAS GREATER THAN 45 MINUTES. - Past Medical Family Social History Past Med/Fam/Surg Hx: No changes since H&P Allergies: Allergies levofloxacin [From Levaquin] Allergy (Unknown, Verified 08/08/21 00:26) Sulfa (Sulfonamide Antibiotics) [SULFA] Allergy (Verified 07/29/21 20:30) - Review of Systems ROS: No change since H&P - Vital Signs and I&O's Vital Signs: Temperature 98.4 F Pulse Rate [Left Brachial] 65 Pulse Rate 87 Respiratory Rate 20 Blood Pressure [Left Arm] 134/73 Blood Pressure 128/70 O2 Sat by Pulse Oximetry 94 Intake and Output: Intake & Output 02/04/22 08/11/21 08/12/21 08/13/21 11:59 11:59 11:59 11:59 Intake Total 2909 / 2909 2618 / 2618 1378 / 1378 Output Total 2400 / 2400 1450 / 1450 2750 / 2750 Balance 509 / 509 1168 / 1168 -1372 / -1372 - Physical Exam Oriented: Normal Eyes: Normal Ear: Normal Nose: Normal Throat: Normal Respiratory: Generalized, Diminished Cardiovascular: Normal : Normal Auscultation: Bowel Sounds: Normal Tenderness: Normal Skin: Normal Musculoskeletal: Normal Psychiatric: Normal Mood Description: Calm Affect: Normal Speech Pattern: Clear - Laboratory and Diagnostics Result Diagrams: 08/12/21 04:50 08/12/21 04:50 Labs: Laboratory WBC 17.1 X10^3/uL (3.6-10.0) H 08/12/21 04:50 RBC 4.63 X10^6/uL (4.7-6.0) L 08/12/21 04:50 Hgb 13.9 g/dL (13.5-18.0) 08/12/21 04:50 Hct 41.0 % (42.0-54.0) L 08/12/21 04:50 MCV 88.5 fL (80.0-100.0) 08/12/21 04:50 MCH 29.9 pg (27.0-34.0) 08/12/21 04:50 MCHC 33.8 g/dL (33.0-35.0) 08/12/21 04:50 RDW 13.8 % (11.6-16.5) 08/12/21 04:50 Plt Count 277 X10^3/uL (150.0-450.0) 08/12/21 04:50 Plt Count Comment Adequate (ADEQUATE) 08/12/21 04:50 MPV 8.0 fL (7.4-11.0) 08/12/21 04:50 Neut % (Auto) 92.0 % (42.0-75.0) H 08/12/21 04:50 Lymph % (Auto) 3.7 % (21.0-51.0) L 08/12/21 04:50 [place] % (Auto) 4.3 % (0.0-13.0) 08/12/21 04:50 Eos % (Auto) 0.0 % (0.9-2.9) L 08/12/21 04:50 Baso % (Auto) 0 % (0.2-1.0) L 08/12/21 04:50 Neut # (Auto) 15.7 x10^3/uL (2.2-4.8) H 08/12/21 04:50 Lymph # (Auto) 0.6 X10^3/uL (1.3-2.9) L 08/12/21 04:50 [place] # (Auto) 0.7 x10^3/uL (0.3-0.8) 08/12/21 04:50 Eos # (Auto) 0.0 x10^3/uL (0.0-0.2) 08/12/21 04:50 Baso # (Auto) 0.0 X10^3/uL (0.0-0.1) 08/12/21 04:50 Absolute Nucleated RBC 0.0 /100WBC 08/12/21 04:50 Total Counted 100 08/12/21 04:50 Neutrophils % (Manual) 89 % (39-76) H 08/12/21 04:50 Band Neutrophils % 2 % (0-10) 08/07/21 07:35 Lymphocytes % (Manual) 7 % (13-43) L 08/12/21 04:50 Monocytes % (Manual) 4 % (4-9) 08/12/21 04:50 Plt Morphology Comment Normal (NORMAL) 08/12/21 04:50 RBC Morphology Normal (NORMAL) 08/12/21 04:50 D-Dimer 1.27 ug/ml (0.0-0.57) H* 07/31/21 06:55 Sample Site Rr 08/12/21 05:00 ABG pH 7.490 (7.35-7.45) H 08/12/21 05:00 ABG pCO2 40.0 mmHg (35.0-45.0) 08/12/21 05:00 ABG pO2 64.0 mmHg (80.0-100.0) L 08/12/21 05:00 ABG HCO3 30.5 mmol/L (22-26) H* 08/12/21 05:00 ABG O2 Saturation 94.0 % (90-100) 08/12/21 05:00 ABG Base Excess 6.6 mmol/L (-2.0-2.0) H 08/12/21 05:00 Nolberto Test Pos 08/12/21 05:00 A-a Gradient 200.0 mmHg 08/12/21 05:00 FiO2 44.0 08/12/21 05:00 Blood Gas Comments [facility] 08/12/21 05:00 Sodium 141 mmol/L (136-145) 08/12/21 04:50 Corrected Sodium TNP 08/12/21 04:50 Potassium 4.1 mmol/L (3.5-5.1) 08/12/21 04:50 Chloride 107 mmol/L (98-107) 08/12/21 04:50 Carbon Dioxide 29.5 mmol/L (21-32) 08/12/21 04:50 BUN 21 mg/dL (7-18) H 08/12/21 04:50 Creatinine 0.81 mg/dL (0.70-1.30) 08/12/21 04:50 Est GFR (MDRD) Af Amer > 60 (>60) 08/12/21 04:50 Est GFR (MDRD) Non-Af > 60 (>60) 08/12/21 04:50 Glucose 75 mg/dL (65-99) 08/12/21 04:50 POC Glucose (mg/dL) 246 mg/dL (65-99) H 08/12/21 11:35 Calcium 8.4 mg/dL (8.5-10.1) L 08/12/21 04:50 Corrected Calcium 10.0 mg/dL (8.5-10.1) 08/12/21 04:50 Total Bilirubin 0.40 mg/dL (0.2-1.0) 08/12/21 04:50 AST 22 Units/L (15-37) 08/12/21 04:50 ALT 51 Units/L (12-78) 08/12/21 04:50 Alkaline Phosphatase 98 Units/L (46-116) 08/12/21 04:50 C-Reactive Protein 0.90 mg/L (0-3.0) 08/12/21 04:50 B-Natriuretic Peptide 11.6 pg/mL (0-79) 08/12/21 04:50 Total Protein 5.4 g/dL (6.4-8.2) L 08/12/21 04:50 Albumin 2.0 g/dL (3.4-5.0) L 08/12/21 04:50 Globulin 3.4 g/dL (2.5-4.5) 08/12/21 04:50 Albumin/Globulin Ratio 0.6 Ratio (1.1-2.1) L 08/12/21 04:50 SARS-CoV-2 (PCR) Positive (NEGATIVE) A 07/31/21 06:53 Influenza Type A (PCR) Negative (NEGATIVE) 07/31/21 06:53 Influenza Type B (PCR) Negative (NEGATIVE) 07/31/21 06:53 RSV (PCR) Negative (NEGATIVE) 07/31/21 06:53 - Plan (1) COVID-19 virus infection Status: Acute (2) Pneumonia Status: Acute Qualifiers: Pneumonia type: due to unspecified organism Laterality: bilateral Lung location: lower lobe of lung Qualified Code(s): J18.9 - Pneumonia, unspecified organism Plan: Continue IV Zithromax and Vibramycin. Check CXR in am. (3) Hypoxia Status: Acute Plan: Supplemental O2 (4) Dyslipidemia Status: Chronic (5) HTN (hypertension) Status: Chronic Qualifiers: Hypertension type: unspecified Qualified Code(s): I10 - Essential (primary) hypertension Plan: Continue Nebivolol. (6) Uncontrolled diabetes mellitus with hyperglycemia Status: Chronic Qualifiers: Diabetes mellitus type: type 2 Qualified Code(s): E11.65 - Type 2 diabetes mellitus with hyperglycemia Plan: Sliding scale regular insulin. Increase Lantus form 50 Units bid to 65 Units bid.
[2021-08-12] MEDS: SNACK - Diabetic Appropriate PO SCH (20:18)
[2021-08-12] MEDS: ZOCOR TAB 10 MG PO SCH (20:19)
[2021-08-13] MEDS: ASCORBIC ACID INJ MULTI-DOSE VIAL 1,500 MG in NS 50 ML IV 50 ML IV SCH ×4 (02:17→20:38)
[2021-08-13] MEDS: ZOSYN VIAL 3.375 GRAMS 3.375 G in NS 100 ML IV + SPIKE MINIBAG* 100 ML IV SCH (05:23)
[2021-08-13 05:27] LABS: BASOPHILS % (AUTO) 0.1 % (0.2-1.0); EOSINOPHILS % (AUTO) 0.1 % (0.9-2.9); HEMATOCRIT 39.6 % (42.0-54.0); HEMOGLOBIN 13.6 g/dL (13.5-18.0); LYMPHOCYTES # (AUTO) 0.7 X10^3/uL (1.3-2.9); LYMPHOCYTES % (AUTO) 3.6 % (21.0-51.0); MEAN CORPUSCULAR HEMOGLOBIN 30.3 pg (27.0-34.0); MEAN CORPUSCULAR HGB CONC 34.4 g/dL (33.0-35.0); MEAN PLATELET VOLUME 8.1 fL (7.4-11.0); MONOCYTES # (AUTO) 0.8 x10^3/uL (0.3-0.8); MONOCYTES % (AUTO) 4.2 % (0.0-13.0); NEUTROPHILS # (AUTO) 16.9 x10^3/uL (2.2-4.8); WHITE BLOOD COUNT 18.4 X10^3/uL (3.6-10.0)
[2021-08-13 05:48] LABS: ALANINE AMINOTRANSFERASE 45 Units/L (12-78); ALKALINE PHOSPHATASE 109 Units/L (46-116); ASPARTATE AMINO TRANSFERASE 20 Units/L (15-37); BLOOD UREA NITROGEN 22 mg/dL (7-18); CALCIUM 7.7 mg/dL (8.5-10.1); CARBON DIOXIDE 27.4 mmol/L (21-32); CHLORIDE 107 mmol/L (98-107); COR CA(FOR HYPOALB) 9.3 mg/dL (8.5-10.1); COR NA(FOR HYPERGLY) 141 mmol/L (136-145); CREATININE 0.83 mg/dL (0.70-1.30); SODIUM 139 mmol/L (136-145); TOTAL PROTEIN 5.4 g/dL (6.4-8.2); eGFR NON BLACK RACES > 60 (>60)
--- NOTE | 2021-08-13 06:05 | RAD ---
HISTORYCOVID+STUDYCHEST, 1 VIEWCOMPARISONOne day prior.TECHNIQUEAP view of the chestFINDINGSCardiac and mediastinal sizes appear stable. There is subcutaneous emphysema in the right neck with pneumomediastinum. Similar appearance of moderate bilateral scattered airspace and interstitial opacities. No definite pleural effusion or pneumothorax. Soft tissue attenuation limits evaluation.IMPRESSIONThere is new pneumomediastinum with subcutaneous mild emphysema in the right neck. Stable bilateral pneumonia.Electronically signed by: Misael Swanson (Aug 13, 2021 06:04:46)
[2021-08-13 06:19] LABS: PLATELET MORPHOLOGY COMMENT NORMAL (NORMAL)
[2021-08-13] MEDS: HumaLOG SC SCH ×3 (06:30→16:54)
[2021-08-13] MEDS: MUCINEX DM PO SCH ×2 (08:30→20:40)
[2021-08-13] MEDS: PROTONIX TAB 40 MG PO SCH (08:31)
[2021-08-13] MEDS: TRICOR TAB 160 MG PO SCH (08:31)
[2021-08-13] MEDS: ZINC SULFATE PO SCH ×2 (08:31→20:40)
[2021-08-13] MEDS: ZETIA TAB 10 MG PO SCH (08:31)
[2021-08-13] MEDS: PEPCID TAB 40 MG PO SCH ×2 (08:31→20:40)
[2021-08-13] MEDS: VITAMIN A PO SCH (08:32)
[2021-08-13] MEDS: VITAMIN D3 125 mcg (5,000 UNITS) PO SCH (08:32)
[2021-08-13] MEDS: SOLU-Medrol 40 MG VIAL IVP SCH ×2 (08:32→20:41)
[2021-08-13] MEDS: ZITHROMAX INJ 500 MG VIAL 500 MG in NS 250 ML IV 250 ML IV SCH (08:36)
[2021-08-13] MEDS: LANTUS SC SCH ×2 (08:42→20:42)
[2021-08-13] MEDS: LOVENOX INJ 30 MG SYR SC SCH ×2 (08:43→20:38)
[2021-08-13] MEDS: BROVANA IN SCH ×2 (09:23→21:20)
[2021-08-13] MEDS: PULMICORT NEB TX 0.5 MG NEB SCH ×2 (09:23→21:20)
[2021-08-13] MEDS: MERREM VIAL 500 MG in NS 100 ML IV + SPIKE MINIBAG* 100 ML IV SCH ×2 (14:31→22:00)
[2021-08-13] MEDS: NS 1,000 ML IV 1,000 ML IV SCH (15:48)
[2021-08-13] MEDS: SNACK - Diabetic Appropriate PO SCH (20:38)
[2021-08-13] MEDS: ZOCOR TAB 10 MG PO SCH (20:40)
[2021-08-14] MEDS: ASCORBIC ACID INJ MULTI-DOSE VIAL 1,500 MG in NS 50 ML IV 50 ML IV SCH ×4 (02:32→20:23)
[2021-08-14] MEDS: MERREM VIAL 500 MG in NS 100 ML IV + SPIKE MINIBAG* 100 ML IV SCH ×3 (05:11→21:45)
[2021-08-14] MEDS: HumaLOG SC SCH ×3 (05:51→17:23)
[2021-08-14 06:34] LABS: BASOPHILS % (AUTO) 0.2 % (0.2-1.0); HEMATOCRIT 42.2 % (42.0-54.0); HEMOGLOBIN 14.4 g/dL (13.5-18.0); LYMPHOCYTES # (AUTO) 0.8 X10^3/uL (1.3-2.9); LYMPHOCYTES % (AUTO) 4.3 % (21.0-51.0); MEAN CORPUSCULAR HEMOGLOBIN 30.3 pg (27.0-34.0); MEAN CORPUSCULAR HGB CONC 34.1 g/dL (33.0-35.0); MEAN PLATELET VOLUME 7.7 fL (7.4-11.0); MONOCYTES # (AUTO) 0.9 x10^3/uL (0.3-0.8); MONOCYTES % (AUTO) 5.1 % (0.0-13.0); NEUTROPHILS # (AUTO) 16.1 x10^3/uL (2.2-4.8); NEUTROPHILS % (AUTO) 90.4 % (42.0-75.0); RED BLOOD COUNT 4.74 X10^6/uL (4.7-6.0); RED CELL DISTRIBUTION WIDTH 14.1 % (11.6-16.5); WHITE BLOOD COUNT 17.8 X10^3/uL (3.6-10.0)
[2021-08-14 06:48] LABS: ALANINE AMINOTRANSFERASE 46 Units/L (12-78); ALBUMIN 2.1 g/dL (3.4-5.0); ALKALINE PHOSPHATASE 102 Units/L (46-116); ASPARTATE AMINO TRANSFERASE 18 Units/L (15-37); BLOOD UREA NITROGEN 23 mg/dL (7-18); CALCIUM 7.9 mg/dL (8.5-10.1); CARBON DIOXIDE 32.1 mmol/L (21-32); CHLORIDE 106 mmol/L (98-107); COR CA(FOR HYPOALB) 9.4 mg/dL (8.5-10.1); COR NA(FOR HYPERGLY) 142 mmol/L (136-145); CREATININE 0.89 mg/dL (0.70-1.30); SODIUM 141 mmol/L (136-145); TOTAL PROTEIN 5.6 g/dL (6.4-8.2); eGFR NON BLACK RACES > 60 (>60)
[2021-08-14 07:04] LABS: BAND NEUTROPHILS % 1 % (0-10)
[2021-08-14 07:05] LABS: PLATELET MORPHOLOGY COMMENT NORMAL (NORMAL)
--- NOTE | 2021-08-14 07:29 | RAD ---
HISTORYCOVID+STUDYCHEST, 1 [id number]/07/2022.TECHNIQUEAP view of the chestFINDINGSThe cardiac and mediastinal contours appear stable. No significant change in bilateral airspace and interstitial opacities. There is worsened subcutaneous emphysema in the right neck with pneumomediastinum. No discernible pleural effusion or pneumothorax.IMPRESSIONStable pulmonary opacities from COVID 19. Worsened subcutaneous emphysema in the right neck with pneumomediastinum. No discernible pneumothorax.Electronically signed by: Misael Swanson (Aug 14, 2021 07:28:34)
--- NOTE | 2021-08-14 07:53 | PCM.PROG ---
Progress Note Progress Note for Day of Date of Exam: 08/13/21 Subjective Subjective: Patient reports he is still slowly getting better. Still SOB with ambulating. CXR shows pneumomediastinum and right neck subcutaneous air. On 4L NC now down from 6L. Maintaining O2 sats in the low to med 90's. Past Medical Family Social History Past Med/Fam/Surg Hx: No changes since H&P Allergies: Allergies levofloxacin [From Levaquin] Allergy (Unknown, Verified 08/08/21 00:26) Sulfa (Sulfonamide Antibiotics) [SULFA] Allergy (Verified 07/29/21 20:30) Review of Systems ROS: No change since H&P Vital Signs and I&O's Vital Signs: Temperature 97.9 F Pulse Rate [Left Brachial] 68 Pulse Rate 72 Respiratory Rate 20 Blood Pressure [Left Arm] 132/74 Blood Pressure 128/70 O2 Sat by Pulse Oximetry 94 Intake and Output: Intake & Output 08/11/21 08/12/21 08/13/21 08/14/21 11:59 11:59 11:59 11:59 Intake Total 2618 / 2618 2578 / 2578 3440 / 3440 2690 / 2690 Output Total 1450 / 1450 2750 / 2750 1800 / 1800 450 / 450 Balance 1168 / 1168 -172 / -172 1640 / 1640 2240 / 2240 Physical Exam Oriented: Normal Eyes: Normal Ear: Normal Nose: Normal Throat: Normal Respiratory: Generalized and Diminished Cardiovascular: Normal : Normal Auscultation: Bowel Sounds: Normal Tenderness: Normal Skin: Normal Musculoskeletal: Normal Psychiatric: Normal Mood Description: Calm Affect: Normal Speech Pattern: Clear Laboratory and Diagnostics Result Diagrams: 08/14/21 05:52 08/14/21 05:52 Labs: 08/13/21 10:20 Sputum - Expectorated Sputum - Final Laboratory WBC 17.8 X10^3/uL (3.6-10.0) H 08/14/21 05:52 RBC 4.74 X10^6/uL (4.7-6.0) 08/14/21 05:52 Hgb 14.4 g/dL (13.5-18.0) 08/14/21 05:52 Hct 42.2 % (42.0-54.0) 08/14/21 05:52 MCV 89.0 fL (80.0-100.0) 08/14/21 05:52 MCH 30.3 pg (27.0-34.0) 08/14/21 05:52 MCHC 34.1 g/dL (33.0-35.0) 08/14/21 05:52 RDW 14.1 % (11.6-16.5) 08/14/21 05:52 Plt Count 259 X10^3/uL (150.0-450.0) 08/14/21 05:52 Plt Count Comment Adequate (ADEQUATE) 08/14/21 05:52 MPV 7.7 fL (7.4-11.0) 08/14/21 05:52 Neut % (Auto) 90.4 % (42.0-75.0) H 08/14/21 05:52 Lymph % (Auto) 4.3 % (21.0-51.0) L 08/14/21 05:52 [place] % (Auto) 5.1 % (0.0-13.0) 08/14/21 05:52 Eos % (Auto) 0.0 % (0.9-2.9) L 08/14/21 05:52 Baso % (Auto) 0.2 % (0.2-1.0) 08/14/21 05:52 Neut # (Auto) 16.1 x10^3/uL (2.2-4.8) H 08/14/21 05:52 Lymph # (Auto) 0.8 X10^3/uL (1.3-2.9) L 08/14/21 05:52 [place] # (Auto) 0.9 x10^3/uL (0.3-0.8) H 08/14/21 05:52 Eos # (Auto) 0.0 x10^3/uL (0.0-0.2) 08/14/21 05:52 Baso # (Auto) 0.0 X10^3/uL (0.0-0.1) 08/14/21 05:52 Absolute Nucleated RBC 0.0 /100WBC 08/14/21 05:52 Total Counted 100 08/14/21 05:52 Neutrophils % (Manual) 88 % (39-76) H 08/14/21 05:52 Band Neutrophils % 1 % (0-10) 08/14/21 05:52 Lymphocytes % (Manual) 7 % (13-43) L 08/14/21 05:52 Monocytes % (Manual) 4 % (4-9) 08/14/21 05:52 Plt Morphology Comment Normal (NORMAL) 08/14/21 05:52 RBC Morphology Normal (NORMAL) 08/14/21 05:52 D-Dimer 1.27 ug/ml (0.0-0.57) H* 07/31/21 06:55 Sample Site Rr 08/12/21 05:00 ABG pH 7.490 (7.35-7.45) H 08/12/21 05:00 ABG pCO2 40.0 mmHg (35.0-45.0) 08/12/21 05:00 ABG pO2 64.0 mmHg (80.0-100.0) L 08/12/21 05:00 ABG HCO3 30.5 mmol/L (22-26) H* 08/12/21 05:00 ABG O2 Saturation 94.0 % (90-100) 08/12/21 05:00 ABG Base Excess 6.6 mmol/L (-2.0-2.0) H 08/12/21 05:00 Nolberto Test Pos 08/12/21 05:00 A-a Gradient 200.0 mmHg 08/12/21 05:00 FiO2 44.0 08/12/21 05:00 Blood Gas Comments [facility] well 08/12/21 05:00 Sodium 141 mmol/L (136-145) 08/14/21 05:52 Corrected Sodium 142 mmol/L (136-145) 08/14/21 05:52 Potassium 4.4 mmol/L (3.5-5.1) 08/14/21 05:52 Chloride 106 mmol/L (98-107) 08/14/21 05:52 Carbon Dioxide 32.1 mmol/L (21-32) H 08/14/21 05:52 BUN 23 mg/dL (7-18) H 08/14/21 05:52 Creatinine 0.89 mg/dL (0.70-1.30) 08/14/21 05:52 Est GFR (MDRD) Af Amer > 60 (>60) 08/14/21 05:52 Est GFR (MDRD) Non-Af > 60 (>60) 08/14/21 05:52 Glucose 132 mg/dL (65-99) H 08/14/21 05:52 POC Glucose (mg/dL) 136 mg/dL (65-99) H 08/14/21 05:22 Calcium 7.9 mg/dL (8.5-10.1) L 08/14/21 05:52 Corrected Calcium 9.4 mg/dL (8.5-10.1) 08/14/21 05:52 Total Bilirubin 0.40 mg/dL (0.2-1.0) 08/14/21 05:52 AST 18 Units/L (15-37) 08/14/21 05:52 ALT 46 Units/L (12-78) 08/14/21 05:52 Alkaline Phosphatase 102 Units/L (46-116) 08/14/21 05:52 C-Reactive Protein 1.30 mg/L (0-3.0) 08/14/21 05:52 B-Natriuretic Peptide 15.0 pg/mL (0-79) 08/14/21 05:52 Total Protein 5.6 g/dL (6.4-8.2) L 08/14/21 05:52 Albumin 2.1 g/dL (3.4-5.0) L 08/14/21 05:52 Globulin 3.5 g/dL (2.5-4.5) 08/14/21 05:52 Albumin/Globulin Ratio 0.6 Ratio (1.1-2.1) L 08/14/21 05:52 SARS-CoV-2 (PCR) Positive (NEGATIVE) A 07/31/21 06:53 Influenza Type A (PCR) Negative (NEGATIVE) 07/31/21 06:53 Influenza Type B (PCR) Negative (NEGATIVE) 07/31/21 06:53 RSV (PCR) Negative (NEGATIVE) 07/31/21 06:53 Radiology Reviewed: Yes Plan (1) COVID-19 virus infection: Status: Acute (2) Pneumonia: Status: Acute Qualifiers: Laterality: bilateral Lung location: lower lobe of lung Pneumonia type: due to unspecified organism Qualified Code(s): J18.9 - Pneumonia, unspecified organism Plan: Continue IV Zithromax and Vibramycin Check CXR in am. Add Meropenem IV for unchanged pneumonia and elevated WBC count. (3) Hypoxia: Status: Acute Plan: Supplemental O2 (4) Dyslipidemia: Status: Chronic (5) HTN (hypertension): Status: Chronic Qualifiers: Hypertension type: unspecified Qualified Code(s): I10 - Essential (primary) hypertension Plan: Continue Nebivolol. (6) Uncontrolled diabetes mellitus with hyperglycemia: Status: Chronic Qualifiers: Diabetes mellitus type: type 2 Qualified Code(s): E11.65 - Type 2 diabetes mellitus with hyperglycemia Plan: Sliding scale regular insulin. Increase Lantus form 50 Units bid to 65 Units bid.
[2021-08-14] MEDS: LOVENOX INJ 30 MG SYR SC SCH ×2 (08:19→20:24)
[2021-08-14] MEDS: MUCINEX DM PO SCH ×2 (08:20→20:24)
[2021-08-14] MEDS: SOLU-Medrol 40 MG VIAL IVP SCH ×2 (08:20→20:24)
[2021-08-14] MEDS: TRICOR TAB 160 MG PO SCH (08:21)
[2021-08-14] MEDS: PEPCID TAB 40 MG PO SCH ×2 (08:21→20:23)
[2021-08-14] MEDS: PROTONIX TAB 40 MG PO SCH (08:21)
[2021-08-14] MEDS: ZETIA TAB 10 MG PO SCH (08:22)
[2021-08-14] MEDS: VITAMIN A PO SCH (08:22)
[2021-08-14] MEDS: VITAMIN D3 125 mcg (5,000 UNITS) PO SCH (08:22)
[2021-08-14] MEDS: ZINC SULFATE PO SCH ×2 (08:25→20:24)
[2021-08-14] MEDS: LANTUS SC SCH ×2 (09:00→20:25)
[2021-08-14] MEDS: PULMICORT NEB TX 0.5 MG NEB SCH ×2 (09:10→20:50)
[2021-08-14] MEDS: BROVANA IN SCH ×2 (09:10→20:51)
[2021-08-14] MEDS: ZITHROMAX INJ 500 MG VIAL 500 MG in NS 250 ML IV 250 ML IV SCH (10:02)
--- NOTE | 2021-08-14 13:14 | PCM.PROG ---
Progress Note Progress Note for Day of Date of Exam: 08/14/21 Subjective Subjective: Patient reports he is still slowly getting better. Still SOB with ambulating. CXR shows pneumomediastinum and right neck subcutaneous air which is slightly worse since yesterday morning. On 4L NC now down from 6L. Maintaining O2 sats in the low to mid 90's. WBC count is still elevated at 17.8 since starting Meropenem yesterday. Past Medical Family Social History Past Med/Fam/Surg Hx: No changes since H&P Allergies: Allergies levofloxacin [From Levaquin] Allergy (Unknown, Verified 08/08/21 00:26) Sulfa (Sulfonamide Antibiotics) [SULFA] Allergy (Verified 07/29/21 20:30) Review of Systems ROS: No change since H&P Vital Signs and I&O's Vital Signs: Temperature 97.8 F Pulse Rate [Left Brachial] 72 Pulse Rate 89 Respiratory Rate 22 Blood Pressure [Left Arm] 145/70 Blood Pressure 128/70 O2 Sat by Pulse Oximetry 92 Intake and Output: Intake & Output 08/12/21 08/13/21 08/14/21 08/15/21 11:59 11:59 11:59 11:59 Intake Total 2578 / 2578 3440 / 3440 2690 / 2690 Output Total 2750 / 2750 1800 / 1800 450 / 450 Balance -172 / -172 1640 / 1640 2240 / 2240 Physical Exam Oriented: Normal Eyes: Normal Ear: Normal Nose: Normal Throat: Normal Respiratory: Generalized and Diminished Cardiovascular: Normal : Normal Auscultation: Bowel Sounds: Normal Tenderness: Normal Skin: Normal Musculoskeletal: Normal Psychiatric: Normal Mood Description: Calm Affect: Normal Speech Pattern: Clear Laboratory and Diagnostics Result Diagrams: 08/14/21 05:52 08/14/21 12:27 Labs: 08/13/21 10:20 Sputum - Expectorated Sputum Sputum Culture - Preliminary 08/13/21 10:20 Sputum - Expectorated Sputum - Final Laboratory WBC 17.8 X10^3/uL (3.6-10.0) H 08/14/21 05:52 RBC 4.74 X10^6/uL (4.7-6.0) 08/14/21 05:52 Hgb 14.4 g/dL (13.5-18.0) 08/14/21 05:52 Hct 42.2 % (42.0-54.0) 08/14/21 05:52 MCV 89.0 fL (80.0-100.0) 08/14/21 05:52 MCH 30.3 pg (27.0-34.0) 08/14/21 05:52 MCHC 34.1 g/dL (33.0-35.0) 08/14/21 05:52 RDW 14.1 % (11.6-16.5) 08/14/21 05:52 Plt Count 259 X10^3/uL (150.0-450.0) 08/14/21 05:52 Plt Count Comment Adequate (ADEQUATE) 08/14/21 05:52 MPV 7.7 fL (7.4-11.0) 08/14/21 05:52 Neut % (Auto) 90.4 % (42.0-75.0) H 08/14/21 05:52 Lymph % (Auto) 4.3 % (21.0-51.0) L 08/14/21 05:52 [place] % (Auto) 5.1 % (0.0-13.0) 08/14/21 05:52 Eos % (Auto) 0.0 % (0.9-2.9) L 08/14/21 05:52 Baso % (Auto) 0.2 % (0.2-1.0) 08/14/21 05:52 Neut # (Auto) 16.1 x10^3/uL (2.2-4.8) H 08/14/21 05:52 Lymph # (Auto) 0.8 X10^3/uL (1.3-2.9) L 08/14/21 05:52 [place] # (Auto) 0.9 x10^3/uL (0.3-0.8) H 08/14/21 05:52 Eos # (Auto) 0.0 x10^3/uL (0.0-0.2) 08/14/21 05:52 Baso # (Auto) 0.0 X10^3/uL (0.0-0.1) 08/14/21 05:52 Absolute Nucleated RBC 0.0 /100WBC 08/14/21 05:52 Total Counted 100 08/14/21 05:52 Neutrophils % (Manual) 88 % (39-76) H 08/14/21 05:52 Band Neutrophils % 1 % (0-10) 08/14/21 05:52 Lymphocytes % (Manual) 7 % (13-43) L 08/14/21 05:52 Monocytes % (Manual) 4 % (4-9) 08/14/21 05:52 Plt Morphology Comment Normal (NORMAL) 08/14/21 05:52 RBC Morphology Normal (NORMAL) 08/14/21 05:52 D-Dimer 1.27 ug/ml (0.0-0.57) H* 07/31/21 06:55 Sample Site Rr 08/12/21 05:00 ABG pH 7.490 (7.35-7.45) H 08/12/21 05:00 ABG pCO2 40.0 mmHg (35.0-45.0) 08/12/21 05:00 ABG pO2 64.0 mmHg (80.0-100.0) L 08/12/21 05:00 ABG HCO3 30.5 mmol/L (22-26) H* 08/12/21 05:00 ABG O2 Saturation 94.0 % (90-100) 08/12/21 05:00 ABG Base Excess 6.6 mmol/L (-2.0-2.0) H 08/12/21 05:00 Nolberto Test Pos 08/12/21 05:00 A-a Gradient 200.0 mmHg 08/12/21 05:00 FiO2 44.0 08/12/21 05:00 Blood Gas Comments [place] well sw 08/12/21 05:00 Sodium 141 mmol/L (136-145) 08/14/21 05:52 Corrected Sodium 142 mmol/L (136-145) 08/14/21 05:52 Potassium 4.4 mmol/L (3.5-5.1) 08/14/21 05:52 Chloride 106 mmol/L (98-107) 08/14/21 05:52 Carbon Dioxide 32.1 mmol/L (21-32) H 08/14/21 05:52 BUN 23 mg/dL (7-18) H 08/14/21 05:52 Creatinine 0.89 mg/dL (0.70-1.30) 08/14/21 05:52 Est GFR (MDRD) Af Amer > 60 (>60) 08/14/21 05:52 Est GFR (MDRD) Non-Af > 60 (>60) 08/14/21 05:52 Glucose 384 mg/dL (65-99) H 08/14/21 12:27 POC Glucose (mg/dL) 420 mg/dL (65-99) H 08/14/21 11:26 Calcium 7.9 mg/dL (8.5-10.1) L 08/14/21 05:52 Corrected Calcium 9.4 mg/dL (8.5-10.1) 08/14/21 05:52 Total Bilirubin 0.40 mg/dL (0.2-1.0) 08/14/21 05:52 AST 18 Units/L (15-37) 08/14/21 05:52 ALT 46 Units/L (12-78) 08/14/21 05:52 Alkaline Phosphatase 102 Units/L (46-116) 08/14/21 05:52 C-Reactive Protein 1.30 mg/L (0-3.0) 08/14/21 05:52 B-Natriuretic Peptide 15.0 pg/mL (0-79) 08/14/21 05:52 Total Protein 5.6 g/dL (6.4-8.2) L 08/14/21 05:52 Albumin 2.1 g/dL (3.4-5.0) L 08/14/21 05:52 Globulin 3.5 g/dL (2.5-4.5) 08/14/21 05:52 Albumin/Globulin Ratio 0.6 Ratio (1.1-2.1) L 08/14/21 05:52 SARS-CoV-2 (PCR) Positive (NEGATIVE) A 07/31/21 06:53 Influenza Type A (PCR) Negative (NEGATIVE) 07/31/21 06:53 Influenza Type B (PCR) Negative (NEGATIVE) 07/31/21 06:53 RSV (PCR) Negative (NEGATIVE) 07/31/21 06:53 Resp Viral Panel (PCR) See scanned report 08/09/21 11:08 Radiology Reviewed: Yes Plan (1) Pneumomediastinum: Status: Acute Plan: Monitor daily CXR's. No treatment for this at this time as it should self resolve. (2) COVID-19 virus infection: Status: Acute (3) Pneumonia: Status: Acute Qualifiers: Laterality: bilateral Lung location: lower lobe of lung Pneumonia type: due to unspecified organism Qualified Code(s): J18.9 - Pneumonia, unspecified organism Plan: Continue IV Zithromax and Vibramycin Check CXR in am. Add Meropenem IV for unchanged pneumonia and elevated WBC count. (4) Hypoxia: Status: Acute Plan: Supplemental O2 (5) Dyslipidemia: Status: Chronic (6) HTN (hypertension): Status: Chronic Qualifiers: Hypertension type: unspecified Qualified Code(s): I10 - Essential (primary) hypertension Plan: Continue Nebivolol. (7) Uncontrolled diabetes mellitus with hyperglycemia: Status: Chronic Qualifiers: Diabetes mellitus type: type 2 Qualified Code(s): E11.65 - Type 2 diabetes mellitus with hyperglycemia Plan: Sliding scale regular insulin. Increase Lantus form 50 Units bid to 65 Units bid.
[2021-08-14] MEDS: NS 1,000 ML IV 1,000 ML IV SCH (17:26)
[2021-08-14] MEDS: SNACK - Diabetic Appropriate PO SCH (20:23)
[2021-08-14] MEDS: ZOCOR TAB 10 MG PO SCH (20:24)
[2021-08-15] MEDS: ASCORBIC ACID INJ MULTI-DOSE VIAL 1,500 MG in NS 50 ML IV 50 ML IV SCH ×4 (02:31→21:39)
[2021-08-15] MEDS: MERREM VIAL 500 MG in NS 100 ML IV + SPIKE MINIBAG* 100 ML IV SCH ×3 (05:04→21:40)
[2021-08-15 05:32] LABS: BASOPHILS % (AUTO) 0.1 % (0.2-1.0); EOSINOPHILS % (AUTO) 0.1 % (0.9-2.9); HEMATOCRIT 41.9 % (42.0-54.0); HEMOGLOBIN 14.3 g/dL (13.5-18.0); LYMPHOCYTES # (AUTO) 0.9 X10^3/uL (1.3-2.9); LYMPHOCYTES % (AUTO) 4.9 % (21.0-51.0); MEAN CORPUSCULAR HEMOGLOBIN 30.1 pg (27.0-34.0); MEAN CORPUSCULAR HGB CONC 34.1 g/dL (33.0-35.0); MEAN CORPUSCULAR VOLUME 88.2 fL (80.0-100.0); MEAN PLATELET VOLUME 7.7 fL (7.4-11.0); MONOCYTES # (AUTO) 0.9 x10^3/uL (0.3-0.8); MONOCYTES % (AUTO) 5.1 % (0.0-13.0); NEUTROPHILS # (AUTO) 15.9 x10^3/uL (2.2-4.8); NEUTROPHILS % (AUTO) 89.8 % (42.0-75.0); RED BLOOD COUNT 4.75 X10^6/uL (4.7-6.0); RED CELL DISTRIBUTION WIDTH 13.6 % (11.6-16.5); WHITE BLOOD COUNT 17.7 X10^3/uL (3.6-10.0)
[2021-08-15 05:41] LABS: ALANINE AMINOTRANSFERASE 42 Units/L (12-78); ALBUMIN 2.1 g/dL (3.4-5.0); ALKALINE PHOSPHATASE 93 Units/L (46-116); ASPARTATE AMINO TRANSFERASE 18 Units/L (15-37); BLOOD UREA NITROGEN 21 mg/dL (7-18); CALCIUM 8.1 mg/dL (8.5-10.1); CARBON DIOXIDE 28.6 mmol/L (21-32); CHLORIDE 109 mmol/L (98-107); COR CA(FOR HYPOALB) 9.6 mg/dL (8.5-10.1); CREATININE 0.74 mg/dL (0.70-1.30); SODIUM 144 mmol/L (136-145); TOTAL PROTEIN 5.4 g/dL (6.4-8.2); eGFR NON BLACK RACES > 60 (>60)
[2021-08-15] MEDS: HumaLOG SC SCH ×3 (05:54→17:18)
[2021-08-15] MEDS: LANTUS SC SCH ×2 (08:35→22:24)
[2021-08-15] MEDS: LOVENOX INJ 30 MG SYR SC SCH ×2 (08:36→21:39)
[2021-08-15] MEDS: MUCINEX DM PO SCH ×2 (08:36→21:37)
[2021-08-15] MEDS: PROTONIX TAB 40 MG PO SCH (08:37)
[2021-08-15] MEDS: VITAMIN A PO SCH (08:37)
[2021-08-15] MEDS: SOLU-Medrol 40 MG VIAL IVP SCH ×2 (08:37→21:37)
[2021-08-15] MEDS: PEPCID TAB 40 MG PO SCH ×2 (08:37→21:40)
[2021-08-15] MEDS: TRICOR TAB 160 MG PO SCH (08:37)
[2021-08-15] MEDS: ZETIA TAB 10 MG PO SCH (08:38)
[2021-08-15] MEDS: VITAMIN D3 125 mcg (5,000 UNITS) PO SCH (08:38)
[2021-08-15] MEDS: ZINC SULFATE PO SCH ×2 (08:38→21:37)
[2021-08-15] MEDS: PULMICORT NEB TX 0.5 MG NEB SCH ×2 (08:59→20:59)
[2021-08-15] MEDS: BROVANA IN SCH ×2 (08:59→20:59)
--- NOTE | 2021-08-15 10:19 | RAD ---
HISTORYCOVID, PNEUMONIASTUDYCHEST x-ray, 1 VIEWCOMPARISONX-ray 08/14/2021FINDINGSPersistent pneumomediastinum and free air in the upper chest and lower neck. Heart is normal in size. Diffuse lung infiltrates are unchanged. No evidence of a pneumothorax or pleural effusion.IMPRESSIONPersistent COVID-19 pneumonia or post infectious changes. Persistent pneumomediastinum with free air in the chest wall and lower neck.Electronically signed by: Zeferino Mckeon (Aug 15, 2021 10:18:12)
[2021-08-15] MEDS ORDERED: TUSSIONEX PENNKINETIC SUSP PO PRN (10:21)
[2021-08-15] MEDS: FLONASE NASAL SPRAY ENOSTRIL SCH ×2 (12:05→21:40)
--- NOTE | 2021-08-15 16:24 | PCM.PROG ---
Progress Note Progress Note for Day of Date of Exam: 08/15/21 Subjective Subjective: Patient reports he didn't sleep well last night. Breathing is about the same. He appears nervous about going home. He was placed on and O2 concentrator to see how he would do and he is sating in the mid 90's. CXR shows no improvement in the pneumomediastinum. Will keep patient on the O2 concentrator overnight and repeat a CXR in am. If patient is keeping his O2 sats up will plan on possible discharge home in am if his CXR is stable or improved. Past Medical Family Social History Past Med/Fam/Surg Hx: No changes since H&P Allergies: Allergies levofloxacin [From Levaquin] Allergy (Unknown, Verified 08/08/21 00:26) Sulfa (Sulfonamide Antibiotics) [SULFA] Allergy (Verified 07/29/21 20:30) Review of Systems ROS: No change since H&P Vital Signs and I&O's Vital Signs: Temperature 97.4 F Pulse Rate [Left Brachial] 74 Pulse Rate 92 Respiratory Rate 22 Blood Pressure [Left Arm] 153/76 Blood Pressure 128/70 O2 Sat by Pulse Oximetry 90 Intake and Output: Intake & Output 08/13/21 08/14/21 08/15/21 08/16/21 11:59 11:59 11:59 11:59 Intake Total 3440 / 3440 2690 / 2690 4144 / 4144 Output Total 1800 / 1800 450 / 450 4125 / 4125 Balance 1640 / 1640 2240 / 2240 Physical Exam Oriented: Normal Eyes: Normal Ear: Normal Nose: Normal Throat: Normal Respiratory: Generalized and Diminished Cardiovascular: Normal : Normal Auscultation: Bowel Sounds: Normal Tenderness: Normal Skin: Normal Musculoskeletal: Normal Psychiatric: Normal Mood Description: Calm Affect: Normal Speech Pattern: Clear Laboratory and Diagnostics Result Diagrams: 08/15/21 05:10 08/15/21 05:10 Labs: 08/13/21 10:20 Sputum - Expectorated Sputum Sputum Culture - Final 08/13/21 10:20 Sputum - Expectorated Sputum - Final Laboratory WBC 17.7 X10^3/uL (3.6-10.0) H 08/15/21 05:10 RBC 4.75 X10^6/uL (4.7-6.0) 08/15/21 05:10 Hgb 14.3 g/dL (13.5-18.0) 08/15/21 05:10 Hct 41.9 % (42.0-54.0) L 08/15/21 05:10 MCV 88.2 fL (80.0-100.0) 08/15/21 05:10 MCH 30.1 pg (27.0-34.0) 08/15/21 05:10 MCHC 34.1 g/dL (33.0-35.0) 08/15/21 05:10 RDW 13.6 % (11.6-16.5) 08/15/21 05:10 Plt Count 246 X10^3/uL (150.0-450.0) 08/15/21 05:10 Plt Count Comment Adequate (ADEQUATE) 08/14/21 05:52 MPV 7.7 fL (7.4-11.0) 08/15/21 05:10 Neut % (Auto) 89.8 % (42.0-75.0) H 08/15/21 05:10 Lymph % (Auto) 4.9 % (21.0-51.0) L 08/15/21 05:10 [place] % (Auto) 5.1 % (0.0-13.0) 08/15/21 05:10 Eos % (Auto) 0.1 % (0.9-2.9) L 08/15/21 05:10 Baso % (Auto) 0.1 % (0.2-1.0) L 08/15/21 05:10 Neut # (Auto) 15.9 x10^3/uL (2.2-4.8) H 08/15/21 05:10 Lymph # (Auto) 0.9 X10^3/uL (1.3-2.9) L 08/15/21 05:10 [place] # (Auto) 0.9 x10^3/uL (0.3-0.8) H 08/15/21 05:10 Eos # (Auto) 0.0 x10^3/uL (0.0-0.2) 08/15/21 05:10 Baso # (Auto) 0.0 X10^3/uL (0.0-0.1) 08/15/21 05:10 Absolute Nucleated RBC 0.0 /100WBC 08/15/21 05:10 Total Counted 100 08/14/21 05:52 Neutrophils % (Manual) 88 % (39-76) H 08/14/21 05:52 Band Neutrophils % 1 % (0-10) 08/14/21 05:52 Lymphocytes % (Manual) 7 % (13-43) L 08/14/21 05:52 Monocytes % (Manual) 4 % (4-9) 08/14/21 05:52 Plt Morphology Comment Normal (NORMAL) 08/14/21 05:52 RBC Morphology Normal (NORMAL) 08/14/21 05:52 D-Dimer 1.27 ug/ml (0.0-0.57) H* 07/31/21 06:55 Sample Site Rr 08/12/21 05:00 ABG pH 7.490 (7.35-7.45) H 08/12/21 05:00 ABG pCO2 40.0 mmHg (35.0-45.0) 08/12/21 05:00 ABG pO2 64.0 mmHg (80.0-100.0) L 08/12/21 05:00 ABG HCO3 30.5 mmol/L (22-26) H* 08/12/21 05:00 ABG O2 Saturation 94.0 % (90-100) 08/12/21 05:00 ABG Base Excess 6.6 mmol/L (-2.0-2.0) H 08/12/21 05:00 Nolberto Test Pos 08/12/21 05:00 A-a Gradient 200.0 mmHg 08/12/21 05:00 FiO2 44.0 08/12/21 05:00 Blood Gas Comments [place]iris well sw 08/12/21 05:00 Sodium 144 mmol/L (136-145) 08/15/21 05:10 Corrected Sodium TNP 08/15/21 05:10 Potassium 4.3 mmol/L (3.5-5.1) 08/15/21 05:10 Chloride 109 mmol/L (98-107) H 08/15/21 05:10 Carbon Dioxide 28.6 mmol/L (21-32) 08/15/21 05:10 BUN 21 mg/dL (7-18) H 08/15/21 05:10 Creatinine 0.74 mg/dL (0.70-1.30) 08/15/21 05:10 Est GFR (MDRD) Af Amer > 60 (>60) 08/15/21 05:10 Est GFR (MDRD) Non-Af > 60 (>60) 08/15/21 05:10 Glucose 87 mg/dL (65-99) 08/15/21 05:10 POC Glucose (mg/dL) 262 mg/dL (65-99) H 08/15/21 15:52 Calcium 8.1 mg/dL (8.5-10.1) L 08/15/21 05:10 Corrected Calcium 9.6 mg/dL (8.5-10.1) 08/15/21 05:10 Total Bilirubin 0.40 mg/dL (0.2-1.0) 08/15/21 05:10 AST 18 Units/L (15-37) 08/15/21 05:10 ALT 42 Units/L (12-78) 08/15/21 05:10 Alkaline Phosphatase 93 Units/L (46-116) 08/15/21 05:10 C-Reactive Protein 1.60 mg/L (0-3.0) 08/15/21 05:10 B-Natriuretic Peptide 15.0 pg/mL (0-79) 08/14/21 05:52 Total Protein 5.4 g/dL (6.4-8.2) L 08/15/21 05:10 Albumin 2.1 g/dL (3.4-5.0) L 08/15/21 05:10 Globulin 3.3 g/dL (2.5-4.5) 08/15/21 05:10 Albumin/Globulin Ratio 0.6 Ratio (1.1-2.1) L 08/15/21 05:10 SARS-CoV-2 (PCR) Positive (NEGATIVE) A 07/31/21 06:53 Influenza Type A (PCR) Negative (NEGATIVE) 07/31/21 06:53 Influenza Type B (PCR) Negative (NEGATIVE) 07/31/21 06:53 RSV (PCR) Negative (NEGATIVE) 07/31/21 06:53 Resp Viral Panel (PCR) See scanned report 08/09/21 11:08 Radiology Reviewed: Yes Plan (1) Pneumomediastinum: Status: Acute Narrative Support Text: No significant improvment since yesterday. Plan: Monitor daily CXR's. No treatment for this at this time as it should self resolve. Started Tussionex earlier. (2) COVID-19 virus infection: Status: Acute (3) Pneumonia: Status: Acute Qualifiers: Laterality: bilateral Lung location: lower lobe of lung Pneumonia type: due to unspecified organism Qualified Code(s): J18.9 - Pneumonia, unspecified organism Plan: Check CXR in am. Continue Meropenem IV for unchanged pneumonia and elevated WBC count. Will add Gentamycin for persistent leukocytosis. (4) Hypoxia: Status: Acute Plan: Supplemental O2 (5) Dyslipidemia: Status: Chronic (6) HTN (hypertension): Status: Chronic Qualifiers: Hypertension type: unspecified Qualified Code(s): I10 - Essential (primary) hypertension Plan: Continue Nebivolol. (7) Uncontrolled diabetes mellitus with hyperglycemia: Status: Chronic Qualifiers: Diabetes mellitus type: type 2 Qualified Code(s): E11.65 - Type 2 diabetes mellitus with hyperglycemia Plan: Sliding scale regular insulin. Increase Lantus form 50 Units bid to 65 Units bid.
[2021-08-15] MEDS ORDERED: CONSULT PHARMACY - GENTAMICIN XX SCH (17:00)
[2021-08-15] MEDS: GENTAMICIN IV SCH ×2 (17:34→23:11)
[2021-08-15] MEDS: NS IV SCH ×2 (17:34→23:11)
[2021-08-15] MEDS: SNACK - Diabetic Appropriate PO SCH (21:38)
[2021-08-15] MEDS: ZOCOR TAB 10 MG PO SCH (21:38)
[2021-08-15] MEDS: NS 1,000 ML IV 1,000 ML IV SCH (23:10)
[2021-08-16] MEDS: ASCORBIC ACID INJ MULTI-DOSE VIAL 1,500 MG in NS 50 ML IV 50 ML IV SCH ×2 (03:10→09:35)
[2021-08-16] MEDS: MERREM VIAL 500 MG in NS 100 ML IV + SPIKE MINIBAG* 100 ML IV SCH ×2 (05:05→15:37)
[2021-08-16] MEDS: GENTAMICIN IV SCH ×3 (06:00→21:54)
[2021-08-16] MEDS: NS IV SCH ×3 (06:00→21:54)
[2021-08-16] MEDS: HumaLOG SC SCH ×3 (06:13→16:55)
[2021-08-16 06:14] LABS: BASOPHILS % (AUTO) 0.1 % (0.2-1.0); HEMATOCRIT 41.5 % (42.0-54.0); HEMOGLOBIN 13.9 g/dL (13.5-18.0); LYMPHOCYTES # (AUTO) 0.5 X10^3/uL (1.3-2.9); LYMPHOCYTES % (AUTO) 3.1 % (21.0-51.0); MEAN CORPUSCULAR HEMOGLOBIN 30.1 pg (27.0-34.0); MEAN CORPUSCULAR HGB CONC 33.5 g/dL (33.0-35.0); MEAN CORPUSCULAR VOLUME 89.8 fL (80.0-100.0); MEAN PLATELET VOLUME 8.3 fL (7.4-11.0); MONOCYTES # (AUTO) 0.5 x10^3/uL (0.3-0.8); MONOCYTES % (AUTO) 3.1 % (0.0-13.0); NEUTROPHILS # (AUTO) 13.8 x10^3/uL (2.2-4.8); NEUTROPHILS % (AUTO) 93.7 % (42.0-75.0); RED BLOOD COUNT 4.63 X10^6/uL (4.7-6.0); RED CELL DISTRIBUTION WIDTH 13.8 % (11.6-16.5); WHITE BLOOD COUNT 14.8 X10^3/uL (3.6-10.0)
[2021-08-16] MEDS: NovoLIN R (or HumuLIN R) SUBCUT PRN (06:15)
[2021-08-16 06:17] LABS: ALANINE AMINOTRANSFERASE 44 Units/L (12-78); ALKALINE PHOSPHATASE 109 Units/L (46-116); ASPARTATE AMINO TRANSFERASE 15 Units/L (15-37); BLOOD UREA NITROGEN 30 mg/dL (7-18); CALCIUM 7.8 mg/dL (8.5-10.1); CARBON DIOXIDE 28.3 mmol/L (21-32); CHLORIDE 108 mmol/L (98-107); COR CA(FOR HYPOALB) 9.4 mg/dL (8.5-10.1); COR NA(FOR HYPERGLY) 147 mmol/L (136-145); CREATININE 0.79 mg/dL (0.70-1.30); SODIUM 141 mmol/L (136-145); TOTAL PROTEIN 5.2 g/dL (6.4-8.2); eGFR NON BLACK RACES > 60 (>60)
[2021-08-16 07:27] LABS: BAND NEUTROPHILS % 4 % (0-10); PLATELET MORPHOLOGY COMMENT NORMAL (NORMAL)
--- NOTE | 2021-08-16 08:10 | RAD ---
HISTORYPNEUMONIASTUDYCHEST x-ray, 1 VIEWCOMPARISONX-ray 08/15/2021FINDINGSPersistent pneumomediastinum and free air in the lower neck. Prominent diffuse lung infiltrates are unchanged. Heart is normal in size. Possible small left pleural effusion. No pneumothorax is seen.IMPRESSIONNo change in appearance of the chest.Electronically signed by: Zeferino Mckeon (Aug 16, 2021 08:09:56)
[2021-08-16] MEDS: BROVANA IN SCH ×2 (08:30→21:35)
[2021-08-16] MEDS: PULMICORT NEB TX 0.5 MG NEB SCH ×2 (08:30→21:35)
[2021-08-16] MEDS: FLONASE NASAL SPRAY ENOSTRIL SCH ×2 (09:35→21:45)
[2021-08-16] MEDS: LANTUS SC SCH ×2 (09:36→21:46)
[2021-08-16] MEDS: LOVENOX INJ 30 MG SYR SC SCH ×2 (09:37→21:46)
[2021-08-16] MEDS: MUCINEX DM PO SCH ×2 (09:38→21:45)
[2021-08-16] MEDS: PROTONIX TAB 40 MG PO SCH (09:39)
[2021-08-16] MEDS: SOLU-Medrol 40 MG VIAL IVP SCH ×2 (09:39→21:54)
[2021-08-16] MEDS: PEPCID TAB 40 MG PO SCH ×2 (09:39→21:47)
[2021-08-16] MEDS: VITAMIN A PO SCH (09:39)
[2021-08-16] MEDS: TRICOR TAB 160 MG PO SCH (09:39)
[2021-08-16] MEDS: VITAMIN D3 125 mcg (5,000 UNITS) PO SCH (09:42)
[2021-08-16] MEDS: ZINC SULFATE PO SCH ×2 (09:43→21:54)
[2021-08-16] MEDS: ZETIA TAB 10 MG PO SCH (09:43)
[2021-08-16] MEDS ORDERED: PHARMACY COMMENT IV NR ×2 (13:30→14:30)
[2021-08-16 13:47] LABS: CREATININE 0.96 mg/dL (0.70-1.30); GENTAMICIN,TROUGH 0.6 ug/mL (0-1.9)
[2021-08-16] MEDS: NS 1,000 ML IV 1,000 ML IV SCH (16:48)
--- NOTE | 2021-08-16 18:19 | PCM.PROG ---
Progress Note Progress Note for Day of Date of Exam: 08/16/21 Subjective Subjective: Patient is feeling better today. O2 sats are stable. Will try and ween him down today. WBC count is sown to 14 today since Gentamicin added yesterday. Will plan discharging home in am. Past Medical Family Social History Past Med/Fam/Surg Hx: No changes since H&P Allergies: Allergies levofloxacin [From Levaquin] Allergy (Unknown, Verified 08/08/21 00:26) Sulfa (Sulfonamide Antibiotics) [SULFA] Allergy (Verified 07/29/21 20:30) Review of Systems ROS: No change since H&P Vital Signs and I&O's Vital Signs: Temperature 97.3 F Pulse Rate [Left Brachial] 67 Pulse Rate 61 Respiratory Rate 18 Blood Pressure [Left Arm] 138/76 Blood Pressure 128/70 O2 Sat by Pulse Oximetry 94 Intake and Output: Intake & Output 08/14/21 08/15/21 08/16/21 08/17/21 11:59 11:59 11:59 11:59 Intake Total 2690 / 2690 4144 / 4144 2863 / 2863 860 / 860 Output Total 450 / 450 4125 / 4125 2500 / 2500 1125 / 1125 Balance 2240 / 2240 363 / 363 -265 / -265 Physical Exam Oriented: Normal Eyes: Normal Ear: Normal Nose: Normal Throat: Normal Respiratory: Generalized and Diminished Cardiovascular: Normal : Normal Auscultation: Bowel Sounds: Normal Tenderness: Normal Skin: Normal Musculoskeletal: Normal Psychiatric: Normal Mood Description: Calm Affect: Normal Speech Pattern: Clear Laboratory and Diagnostics Result Diagrams: 08/16/21 04:00 08/16/21 13:22 Labs: 08/13/21 10:20 Sputum - Expectorated Sputum Sputum Culture - Final 08/13/21 10:20 Sputum - Expectorated Sputum - Final Laboratory WBC 14.8 X10^3/uL (3.6-10.0) H 08/16/21 04:00 RBC 4.63 X10^6/uL (4.7-6.0) L 08/16/21 04:00 Hgb 13.9 g/dL (13.5-18.0) 08/16/21 04:00 Hct 41.5 % (42.0-54.0) L 08/16/21 04:00 MCV 89.8 fL (80.0-100.0) 08/16/21 04:00 MCH 30.1 pg (27.0-34.0) 08/16/21 04:00 MCHC 33.5 g/dL (33.0-35.0) 08/16/21 04:00 RDW 13.8 % (11.6-16.5) 08/16/21 04:00 Plt Count 190 X10^3/uL (150.0-450.0) 08/16/21 04:00 Plt Count Comment Adequate (ADEQUATE) 08/16/21 04:00 MPV 8.3 fL (7.4-11.0) 08/16/21 04:00 Neut % (Auto) 93.7 % (42.0-75.0) H 08/16/21 04:00 Lymph % (Auto) 3.1 % (21.0-51.0) L 08/16/21 04:00 [place] % (Auto) 3.1 % (0.0-13.0) 08/16/21 04:00 Eos % (Auto) 0.0 % (0.9-2.9) L 08/16/21 04:00 Baso % (Auto) 0.1 % (0.2-1.0) L 08/16/21 04:00 Neut # (Auto) 13.8 x10^3/uL (2.2-4.8) H 08/16/21 04:00 Lymph # (Auto) 0.5 X10^3/uL (1.3-2.9) L 08/16/21 04:00 [place] # (Auto) 0.5 x10^3/uL (0.3-0.8) 08/16/21 04:00 Eos # (Auto) 0.0 x10^3/uL (0.0-0.2) 08/16/21 04:00 Baso # (Auto) 0.0 X10^3/uL (0.0-0.1) 08/16/21 04:00 Absolute Nucleated RBC 0.0 /100WBC 08/16/21 04:00 Total Counted 100 08/16/21 04:00 Neutrophils % (Manual) 90 % (39-76) H 08/16/21 04:00 Band Neutrophils % 4 % (0-10) 08/16/21 04:00 Lymphocytes % (Manual) 4 % (13-43) L 08/16/21 04:00 Monocytes % (Manual) 2 % (4-9) L 08/16/21 04:00 Plt Morphology Comment Normal (NORMAL) 08/16/21 04:00 RBC Morphology Normal (NORMAL) 08/16/21 04:00 D-Dimer 1.27 ug/ml (0.0-0.57) H* 07/31/21 06:55 Sample Site Rr 08/12/21 05:00 ABG pH 7.490 (7.35-7.45) H 08/12/21 05:00 ABG pCO2 40.0 mmHg (35.0-45.0) 08/12/21 05:00 ABG pO2 64.0 mmHg (80.0-100.0) L 08/12/21 05:00 ABG HCO3 30.5 mmol/L (22-26) H* 08/12/21 05:00 ABG O2 Saturation 94.0 % (90-100) 08/12/21 05:00 ABG Base Excess 6.6 mmol/L (-2.0-2.0) H 08/12/21 05:00 Nolberto Test Pos 08/12/21 05:00 A-a Gradient 200.0 mmHg 08/12/21 05:00 FiO2 44.0 08/12/21 05:00 Blood Gas Comments [place] well 08/12/21 05:00 Sodium 141 mmol/L (136-145) 08/16/21 04:00 Corrected Sodium 147 mmol/L (136-145) H 08/16/21 04:00 Potassium 4.8 mmol/L (3.5-5.1) 08/16/21 04:00 Chloride 108 mmol/L (98-107) H 08/16/21 04:00 Carbon Dioxide 28.3 mmol/L (21-32) 08/16/21 04:00 BUN 30 mg/dL (7-18) H 08/16/21 04:00 Creatinine 0.96 mg/dL (0.70-1.30) 08/16/21 13:22 Est GFR (MDRD) Af Amer > 60 (>60) 08/16/21 04:00 Est GFR (MDRD) Non-Af > 60 (>60) 08/16/21 04:00 Glucose 357 mg/dL (65-99) H 08/16/21 04:00 POC Glucose (mg/dL) 358 mg/dL (65-99) H 08/16/21 11:49 Calcium 7.8 mg/dL (8.5-10.1) L 08/16/21 04:00 Corrected Calcium 9.4 mg/dL (8.5-10.1) 08/16/21 04:00 Total Bilirubin 0.40 mg/dL (0.2-1.0) 08/16/21 04:00 AST 15 Units/L (15-37) 08/16/21 04:00 ALT 44 Units/L (12-78) 08/16/21 04:00 Alkaline Phosphatase 109 Units/L (46-116) 08/16/21 04:00 C-Reactive Protein 1.60 mg/L (0-3.0) 08/15/21 05:10 B-Natriuretic Peptide 15.0 pg/mL (0-79) 08/14/21 05:52 Total Protein 5.2 g/dL (6.4-8.2) L 08/16/21 04:00 Albumin 2.0 g/dL (3.4-5.0) L 08/16/21 04:00 Globulin 3.2 g/dL (2.5-4.5) 08/16/21 04:00 Albumin/Globulin Ratio 0.6 Ratio (1.1-2.1) L 08/16/21 04:00 Gentamicin Peak 4.9 ug/mL (5-10) L 08/16/21 16:32 Gentamicin Trough 0.6 ug/mL (0-1.9) 08/16/21 13:22 SARS-CoV-2 (PCR) Positive (NEGATIVE) A 07/31/21 06:53 Influenza Type A (PCR) Negative (NEGATIVE) 07/31/21 06:53 Influenza Type B (PCR) Negative (NEGATIVE) 07/31/21 06:53 RSV (PCR) Negative (NEGATIVE) 07/31/21 06:53 Resp Viral Panel (PCR) See scanned report 08/09/21 11:08 Plan (1) Pneumomediastinum: Status: Acute Plan: Monitor daily CXR's. No treatment for this at this time as it should self resolve. Started Tussionex earlier. (2) COVID-19 virus infection: Status: Acute (3) Pneumonia: Status: Acute Qualifiers: Laterality: bilateral Lung location: lower lobe of lung Pneumonia type: due to unspecified organism Qualified Code(s): J18.9 - Pneumonia, unspecified organism Plan: Check CXR in am. Continue Meropenem IV for unchanged pneumonia and elevated WBC count. Will add Gentamycin for persistent leukocytosis. (4) Hypoxia: Status: Acute Plan: Supplemental O2 (5) Dyslipidemia: Status: Chronic (6) HTN (hypertension): Status: Chronic Qualifiers: Hypertension type: unspecified Qualified Code(s): I10 - Essential (primary) hypertension Plan: Continue Nebivolol. (7) Uncontrolled diabetes mellitus with hyperglycemia: Status: Chronic Qualifiers: Diabetes mellitus type: type 2 Qualified Code(s): E11.65 - Type 2 diabetes mellitus with hyperglycemia Plan: Sliding scale regular insulin. Increase Lantus form 50 Units bid to 65 Units bid.
[2021-08-16] MEDS: VITAMIN C PO SCH (21:44)
[2021-08-16] MEDS: SNACK - Diabetic Appropriate PO SCH (21:46)
[2021-08-16] MEDS: ZOCOR TAB 10 MG PO SCH (21:54)
[2021-08-16] MEDS: MERREM VIAL IVP SCH (21:55)
[2021-08-17] MEDS ORDERED: NS 100 ML IV 100 ML ONE (04:32)
[2021-08-17] MEDS: MERREM VIAL IVP SCH (05:00)
[2021-08-17 05:57] LABS: BASOPHILS % (AUTO) 0.3 % (0.2-1.0); EOSINOPHILS % (AUTO) 0.1 % (0.9-2.9); HEMATOCRIT 44.3 % (42.0-54.0); HEMOGLOBIN 15.1 g/dL (13.5-18.0); LYMPHOCYTES # (AUTO) 0.7 X10^3/uL (1.3-2.9); LYMPHOCYTES % (AUTO) 4.2 % (21.0-51.0); MEAN CORPUSCULAR HEMOGLOBIN 30.2 pg (27.0-34.0); MEAN CORPUSCULAR HGB CONC 34.2 g/dL (33.0-35.0); MEAN CORPUSCULAR VOLUME 88.4 fL (80.0-100.0); MEAN PLATELET VOLUME 8.3 fL (7.4-11.0); MONOCYTES # (AUTO) 0.5 x10^3/uL (0.3-0.8); MONOCYTES % (AUTO) 2.9 % (0.0-13.0); NEUTROPHILS # (AUTO) 15.6 x10^3/uL (2.2-4.8); NEUTROPHILS % (AUTO) 92.5 % (42.0-75.0); RED BLOOD COUNT 5.01 X10^6/uL (4.7-6.0); WHITE BLOOD COUNT 16.9 X10^3/uL (3.6-10.0)
[2021-08-17] MEDS: NS IV SCH (06:13)
[2021-08-17] MEDS: GENTAMICIN IV SCH (06:13)
[2021-08-17 06:18] LABS: ALANINE AMINOTRANSFERASE 43 Units/L (12-78); ALBUMIN 2.3 g/dL (3.4-5.0); ALKALINE PHOSPHATASE 99 Units/L (46-116); ASPARTATE AMINO TRANSFERASE 19 Units/L (15-37); BLOOD UREA NITROGEN 23 mg/dL (7-18); CALCIUM 8.3 mg/dL (8.5-10.1); CARBON DIOXIDE 28.5 mmol/L (21-32); CHLORIDE 108 mmol/L (98-107); COR CA(FOR HYPOALB) 9.7 mg/dL (8.5-10.1); COR NA(FOR HYPERGLY) 143 mmol/L (136-145); CREATININE 0.75 mg/dL (0.70-1.30); SODIUM 141 mmol/L (136-145); TOTAL PROTEIN 5.7 g/dL (6.4-8.2); eGFR NON BLACK RACES > 60 (>60)
--- NOTE | 2021-08-17 06:50 | RAD ---
HISTORYFollow-up COVID-19STUDYChest AP [id number] heart is mildly enlarged. No congestive heart failure is noted. Pneumomediastinum persists subcutaneous emphysema in the neck and supraclavicular regions bilaterally unchanged. Diffuse bilateral interstitial ground-glass and alveolar infiltrates are unchanged in degree or distribution from the prior examination. No pleural effusion or pneumothorax is identified. Bony thorax is unremarkable.IMPRESSIONNo significant change from the prior examinationElectronically signed by: PADMINI MERCER (Aug 17, 2021 06:50:14)
[2021-08-17 06:53] LABS: BAND NEUTROPHILS % 4 % (0-10); PLATELET MORPHOLOGY COMMENT NORMAL (NORMAL)
[2021-08-17] MEDS: ZINC SULFATE PO SCH (09:03)
[2021-08-17] MEDS: VITAMIN C PO SCH (09:03)
[2021-08-17] MEDS: VITAMIN D3 125 mcg (5,000 UNITS) PO SCH (09:03)
[2021-08-17] MEDS: ZETIA TAB 10 MG PO SCH (09:03)
[2021-08-17] MEDS: VITAMIN A PO SCH (09:04)
[2021-08-17] MEDS: PROTONIX TAB 40 MG PO SCH (09:04)
[2021-08-17] MEDS: MUCINEX DM PO SCH (09:04)
[2021-08-17] MEDS: TRICOR TAB 160 MG PO SCH (09:04)
[2021-08-17 09:27] VITALS: BP 140/75
--- NOTE | 2021-09-17 13:30 | PCM.DCPLAN ---
DISCHARGE SUMMARY Admission Date Date of Admission: 07/31/21 Discharge Date Discharge Date: 08/17/21 Admission Diagnoses (1) Pneumomediastinum: Status: Acute (2) COVID-19 virus infection: Status: Acute (3) Pneumonia: Status: Acute (4) Hypoxia: Status: Acute (5) Dyslipidemia: Status: Chronic (6) HTN (hypertension): Status: Chronic (7) Uncontrolled diabetes mellitus with hyperglycemia: Status: Chronic Discharge Diagnoses Discharge Diagnosis: 1. Hypoxia 2. Covid-19 3. Pneumomediastinum 4. Covid-19 Pneumonia 5. HTN 6. DM2 Discharge Medications Discharge Medications: Home Medication List insulin glargine [Lantus U-100 Insulin] 50 unit SUBCUT BID 07/31/21 [History] insulin lispro [Humalog U-100 Insulin] 20 unit SUBCUT AC 07/31/21 [History] azithromycin [Zithromax Z-Marcial] See Rx Instructions .ROUTE .COMPLEX #1 tab 08/17/21 [Rx] budesonide-formoterol [Symbicort] 2 puff INHALATION Q12H #1 g 08/17/21 [Rx] hydrocodone-chlorpheniramine 5 ml PO Q12H PRN #240 ml MDD 10ML 08/17/21 [Rx] methylprednisolone [Methylpred DP] See Rx Instructions .ROUTE .COMPLEX #1 ea 08/17/21 [Rx] Prescriptions: azithromycin [Zithromax Z-Marcial] CAYLA WAITE budesonide-formoterol [Symbicort] CAYLA WAITE hydrocodone-chlorpheniramine MARIANN,CAYLA methylprednisolone [Methylpred DP] MARIANN,CAYLA Hospital Course Vital Signs: Temperature 97.7 F Pulse Rate [Left Brachial] 62 Pulse Rate 62 Respiratory Rate 18 Blood Pressure [Left Arm] 140/75 Blood Pressure 128/70 O2 Sat by Pulse Oximetry 95 Latest Lab Results: Laboratory Last Values WBC 16.9 X10^3/uL (3.6-10.0) H 08/17/21 04:50 RBC 5.01 X10^6/uL (4.7-6.0) 08/17/21 04:50 Hgb 15.1 g/dL (13.5-18.0) 08/17/21 04:50 Hct 44.3 % (42.0-54.0) 08/17/21 04:50 MCV 88.4 fL (80.0-100.0) 08/17/21 04:50 MCH 30.2 pg (27.0-34.0) 08/17/21 04:50 MCHC 34.2 g/dL (33.0-35.0) 08/17/21 04:50 RDW 14.0 % (11.6-16.5) 08/17/21 04:50 Plt Count 242 X10^3/uL (150.0-450.0) 08/17/21 04:50 Plt Count Comment Adequate (ADEQUATE) 08/17/21 04:50 MPV 8.3 fL (7.4-11.0) 08/17/21 04:50 Neut % (Auto) 92.5 % (42.0-75.0) H 08/17/21 04:50 Lymph % (Auto) 4.2 % (21.0-51.0) L 08/17/21 04:50 Mccone % (Auto) 2.9 % (0.0-13.0) 08/17/21 04:50 Eos % (Auto) 0.1 % (0.9-2.9) L 08/17/21 04:50 Baso % (Auto) 0.3 % (0.2-1.0) 08/17/21 04:50 Neut # (Auto) 15.6 x10^3/uL (2.2-4.8) H 08/17/21 04:50 Lymph # (Auto) 0.7 X10^3/uL (1.3-2.9) L 08/17/21 04:50 Mccone # (Auto) 0.5 x10^3/uL (0.3-0.8) 08/17/21 04:50 Eos # (Auto) 0.0 x10^3/uL (0.0-0.2) 08/17/21 04:50 Baso # (Auto) 0.0 X10^3/uL (0.0-0.1) 08/17/21 04:50 Absolute Nucleated RBC 0.0 /100WBC 08/17/21 04:50 Total Counted 100 08/17/21 04:50 Neutrophils % (Manual) 87 % (39-76) H 08/17/21 04:50 Band Neutrophils % 4 % (0-10) 08/17/21 04:50 Lymphocytes % (Manual) 6 % (13-43) L 08/17/21 04:50 Monocytes % (Manual) 3 % (4-9) L 08/17/21 04:50 Plt Morphology Comment Normal (NORMAL) 08/17/21 04:50 RBC Morphology Normal (NORMAL) 08/17/21 04:50 D-Dimer 1.27 ug/ml (0.0-0.57) H* 07/31/21 06:55 Sample Site Rr 08/12/21 05:00 ABG pH 7.490 (7.35-7.45) H 08/12/21 05:00 ABG pCO2 40.0 mmHg (35.0-45.0) 08/12/21 05:00 ABG pO2 64.0 mmHg (80.0-100.0) L 08/12/21 05:00 ABG HCO3 30.5 mmol/L (22-26) H* 08/12/21 05:00 ABG O2 Saturation 94.0 % (90-100) 08/12/21 05:00 ABG Base Excess 6.6 mmol/L (-2.0-2.0) H 08/12/21 05:00 Nolberto Test Pos 08/12/21 05:00 A-a Gradient 200.0 mmHg 08/12/21 05:00 FiO2 44.0 08/12/21 05:00 Blood Gas Comments Osiris well sw 08/12/21 05:00 Sodium 141 mmol/L (136-145) 08/17/21 04:50 Corrected Sodium 143 mmol/L (136-145) 08/17/21 04:50 Potassium 4.4 mmol/L (3.5-5.1) 08/17/21 04:50 Chloride 108 mmol/L (98-107) H 08/17/21 04:50 Carbon Dioxide 28.5 mmol/L (21-32) 08/17/21 04:50 BUN 23 mg/dL (7-18) H 08/17/21 04:50 Creatinine 0.75 mg/dL (0.70-1.30) 08/17/21 04:50 Est GFR (MDRD) Af Amer > 60 (>60) 08/17/21 04:50 Est GFR (MDRD) Non-Af > 60 (>60) 08/17/21 04:50 Glucose 171 mg/dL (65-99) H 08/17/21 04:50 POC Glucose (mg/dL) 96 mg/dL (65-99) 08/17/21 01:42 Calcium 8.3 mg/dL (8.5-10.1) L 08/17/21 04:50 Corrected Calcium 9.7 mg/dL (8.5-10.1) 08/17/21 04:50 Total Bilirubin 0.40 mg/dL (0.2-1.0) 08/17/21 04:50 AST 19 Units/L (15-37) 08/17/21 04:50 ALT 43 Units/L (12-78) 08/17/21 04:50 Alkaline Phosphatase 99 Units/L (46-116) 08/17/21 04:50 C-Reactive Protein 1.60 mg/L (0-3.0) 08/15/21 05:10 B-Natriuretic Peptide 15.0 pg/mL (0-79) 08/14/21 05:52 Total Protein 5.7 g/dL (6.4-8.2) L 08/17/21 04:50 Albumin 2.3 g/dL (3.4-5.0) L 08/17/21 04:50 Globulin 3.4 g/dL (2.5-4.5) 08/17/21 04:50 Albumin/Globulin Ratio 0.7 Ratio (1.1-2.1) L 08/17/21 04:50 Gentamicin Peak 4.9 ug/mL (5-10) L 08/16/21 16:32 Gentamicin Trough 0.6 ug/mL (0-1.9) 08/16/21 13:22 SARS-CoV-2 (PCR) Positive (NEGATIVE) A 07/31/21 06:53 Influenza Type A (PCR) Negative (NEGATIVE) 07/31/21 06:53 Influenza Type B (PCR) Negative (NEGATIVE) 07/31/21 06:53 RSV (PCR) Negative (NEGATIVE) 07/31/21 06:53 Resp Viral Panel (PCR) See scanned report 08/09/21 11:08 Hospital Course: This is a 55-year-old white male who tested positive for code team couple weeks prior to coming to the hospital. He has started developing increased shortness of breath cough and congestion as well as dyspnea over the last few days despite outpatient treatment. He has developed hypoxia with O2 sat in the low 90s and upper 80s on 2 L nasal cannula. Also emergency department where he came throughout he had a chest x-ray showing multifocal pneumonia. He was visibly uncomfortable so we therefore admitted for inpatient treatment of covid-19 pneumonia. The patient approximately 17 day hospital stay. He had a slow complicated recovery. He was treated with Covid-19 protocol in which he only slowly got better. The patient was doing somewhat better and maintaining an O2 sat in the low 90s on 2 L nasal cannula. At the end of the 17 days he had improved enough to go home. We set him up with outpatient respiratory therapy rehab. I will be following up with him within a week for hospital follow-up. The patient was discharged home in stable condition. Instructions Instructions: How to Use an Incentive Spirometer Hyperglycemia, [id number] Home Oxygen Use, Adult Hypoxia Prone Position Therapy How to Wear and Take Off Your Mask - CDC (10/05/2020) How to Use a Nebulizer, Adult Hypertension, Adult, [id number] You've Been Prescribed an Antibiotic in the Hospital for an Infection - [facility] [place] Blood Glucose Monitoring, Adult Community-Acquired Pneumonia, Adult, [id number] Diabetes Mellitus and Nutrition Forms: Excuse From Work or School Precautions for COVID19 [facility] Social Distancing
== END 2021-08-17 10:14 | disposition home or self-care (01) | DRG 177 ==
LOC: MED/SURG 06:31 → ER 06:31 → MED/SURG 16:30 → INTOOBSV 08-04 08:00
PROVIDERS: ADMIT Family Medicine; ATTEND Family Medicine
DX: I10 Essential (primary) hypertension; R26.89 Other abnormalities of gait and mobility; Z79.4 Long term (current) use of insulin; E11.65 Type 2 diabetes mellitus with hyperglycemia; E87.5 Hyperkalemia; U07.1 COVID-19; J98.2 Interstitial emphysema; E78.2 Mixed hyperlipidemia; R94.5 Abnormal results of liver function studies; J96.01 Acute respiratory failure with hypoxia; R79.1 Abnormal coagulation profile; J12.82 Pneumonia due to coronavirus disease 2019; R79.89 Other specified abnormal findings of blood chemistry